=== PATIENT | male | born 1960 ===

== ENCOUNTER 2020-06-21 13:48 | Emergency (ER) | payer OTHER, SELFPAY ==
[2020-06-21 14:35] VITALS: BP 163/79; PULSE 79; RESP 18; TEMP 36.6; O2SAT 97; BMI 33.1
--- NOTE | 2020-06-21 15:29 | ECG_ITS ---
Test Reason : UPPER RESPORITARY Blood Pressure : / mmHG Vent. Rate : 077 BPM Atrial Rate : 077 BPM P-R Int : 130 ms QRS Dur : 082 ms QT Int : 382 ms P-R-T Axes : 060 025 002 degrees QTc Int : 432 ms Normal sinus rhythm with sinus arrhythmia Normal ECG When compared with ECG of 29-FEB-2020 08:22, No significant change was found Referred By: Dyan Osborn Electronically Signed By:DOMINIC KIRK
--- NOTE | 2020-06-21 15:29 | XR_ITS ---
EXAMINATION: XR CHEST CLINICAL INFORMATION: Wheezing. Covid symptoms. COMPARISON: Previous chest x-ray July 2019 TECHNIQUE: Frontal view of the chest was obtained. FINDINGS: The cardiac and mediastinal contours are stable. The lungs are clear without evidence of a pneumonia. There is no pleural effusion or pneumothorax. Bony structures are unremarkable. XR/XR chest 1V IMPRESSION: No evidence for acute disease in the chest.
[2020-06-21 15:55] VITALS: BP 167/71; PULSE 69; RESP 17; TEMP 37.2; O2SAT 99
--- NOTE | 2020-06-21 16:00 | ED.GENADULT ---
HPI - General Adult General Chief complaint: Upper Respiratory Symptoms Stated complaint: covid symptoms Time Seen by Provider: 06/21/20 15:29 Source: patient Mode of arrival: EMS Limitations: no limitations History of Present Illness HPI narrative: 59 y/o male with history of asthma, depression, hx substance abuse (IV heroin), HTN who presents with difficulty breathing this morning. He states when he was walking to the mailbox he could not catch his breath. He attributed this to his history of asthma. He recently ran out of his albuterol inhaler. He also reports headaches, runny nose, body aches. He denies chest pain, N/V, abd pain, urinary symptoms. No known sick contacts. MD complaint: SOB Onset (ago): day(s) (1) Location: chest Radiation: non-radiation Severity: mild and moderate Pain Consistency: intermittent (improving) Relieving factors: rest Exacerbating factors: movement Associated symptoms: headaches, loss of appetite and malaise Treatments prior to arrival: none Related Data Previous Rx's Medication Instructions Recorded acetaminophen [Tylenol Arthritis 650 mg PO Q8H PRN #30 tab 06/21/20 Pain] albuterol sulfate 1 inh INHALATION QID PRN #6.7 g 06/21/20 prednisone 40 mg PO DAILY #5 tab 06/21/20 Allergies Allergy/AdvReac Type Severity Reaction Status Date / Time No Known Allergies Allergy Unverified 03/10/20 17:24 [No Known Allergies*] Review of Systems Review of Systems: Constitutional: No Fever, + Chills ENT/Mouth: No sore throat, + Rhinorrhea, No Swallowing Difficulty Eyes: No Eye Pain, No Swelling, No Redness Cardiovascular: No Chest Pain, + SOB, No Orthopnea, No Edema Respiratory: No Cough, No Sputum, + Wheezing,+ dyspnea Gastrointestinal: No Nausea, No Vomiting, No Diarrhea, No abdominal Pain Genitourinary: No Dysuria, No Urinary Frequency, No Hematuria Musculoskeletal: No joint pain, + Myalgias Skin: No Skin Lesions, No rash Neuro: No Weakness, No Numbness, No Dizziness, + Headache Psych: No Anxiety/Panic, No Depression Heme/Lymph: No Bruising, No Lymphadenopathy Endocrine: No Polyuria, No Polydipsia PMFSH Past Medical History Attestation statement: The following information was validated with the patient. Medical History Asthma Depression HTN (hypertension) Social History Social History Advance Directives: No Advance Directives Information Provided: No Physical Exam Vital Signs: Vital Signs: Last Vital Signs Temp 99.0 F 06/21/20 15:55 Pulse 69 06/21/20 15:55 Resp 17 06/21/20 15:55 BP 167/71 H 06/21/20 15:55 Pulse Ox 99 06/21/20 15:55 Body Mass Index 33.1 Appearance: Alert. Oriented X3. No acute distress. Eyes: Pupils equal, round and reactive to light. ENT: Pharynx normal. Neck: Normal inspection. Neck supple. CVS: Normal heart rate and rhythm. Pulses normal. Respiratory: No respiratory distress. Breath sounds diminished throughout Abdomen: Soft and nontender. +BS x4 Skin: Skin warm and dry. Normal skin color. Normal skin turgor. No rashes. Extremities: No lower extremity edema. Negative Jonathan's sign Neuro: Oriented X 3. No motor deficit. No sensory deficit. Course Course Course Narrative: 59 y/o male with history of asthma presenting with SOB/NASCIMENTO this morning. Symptoms improved but he also reports headache and runny nose. Concern for COVID-19 vs influenza. Resp panel and CXR ordered. He is vitally stable in no distress. No wheezing on exam, less likely asthma exacerbation. No chest pain, nausea or diaphoresis Reevaluation(s) Reevaluation #1: Workup is unremarkable including CXR, EKG, and resp panel. Patient was treated for anxiety with small dose of ativan and feels better. He states he was nervous that if his test came back positive for COVID his roommate was going to make him move out. He remains hemodynamically stable with no resp distress or hypoxia. He is stable for discharge with plan to follow up with PCP this week. Patient agrees with plan. Medical Decision Making Lab Data Result diagrams: 06/21/20 16:10 06/21/20 16:10 Labs: Lab Results 06/21/20 06/21/20 06/21/20 Range/Units 16:10 16:10 16:10 WBC 9.1 (4.8-10.8) X10*3/uL RBC 4.58 L (4.60-5.80) X10*6/uL Hgb 12.2 L (14.0-18.0) g/dl Hct 40.2 L (42-52) % MCV 87.8 (80-98) fL MCH 26.6 L (27.0-33.0) pg MCHC 30.3 L (31.0-36.0) g/dl RDW 13.4 (11.0-16.0) % Plt Count 281 (160-400) X10*3/uL MPV 8.9 L (9.4-12.4) fL Immature Gran % (Auto) 0.2 (0.0-0.4) % Neut % (Auto) 83.3 H (45-73) % Lymph % (Auto) 9.9 L (20-40) % [place] % (Auto) 6.1 (2-11) % Eos % (Auto) 0.2 (0-4) % Baso % (Auto) 0.3 (0-2) % Lymph # (Auto) 0.9 L (1.2-4.9) X10*3/uL [place] # (Auto) 0.6 (0.1-1.2) X10*3/uL Eos # (Auto) 0.0 (0.0-0.4) X10*3/uL Baso # (Auto) 0.0 (0.0-0.2) X10*3/uL Abs Immat Gran (auto) 0.02 (0.00-0.03) X10*3/uL Absolute Neuts (auto) 7.6 (2.0-8.3) X10*3/uL Absolute Nucleated RBC 0.000 (0.0-0.012) X10*3/uL Nucleated RBC % (auto) 0.0 (0.0-0.2) /100WBC Hold Blue Top SEE NOTE Sodium 140 (135-145) mmol/L Potassium 4.5 (3.3-5.1) mmol/l Chloride 105 (96-108) mmol/L Carbon Dioxide 25 (22-29) mmol/L Anion Gap 15 (12-20) BUN 12 (9-16) mg/dL Creatinine 0.78 (0.5-1.4) mg/dL Estim Creat Clear Calc 101.7 Estimated GFR > 60 Random Glucose 106 (60-115) mg/dL Calcium 9.1 (8.4-10.2) mg/dL Magnesium 2.1 (1.6-2.6) mg/dL Coronavirus (PCR) (Negative) Influenza Type A (PCR) (Negative) Influenza Type B (PCR) (Negative) RSV RNA Qual (PCR) (Negative) 06/21/20 Range/Units 16:10 WBC (4.8-10.8) X10*3/uL RBC (4.60-5.80) X10*6/uL Hgb (14.0-18.0) g/dl Hct (42-52) % MCV (80-98) fL MCH (27.0-33.0) pg MCHC (31.0-36.0) g/dl RDW (11.0-16.0) % Plt Count (160-400) X10*3/uL MPV (9.4-12.4) fL Immature Gran % (Auto) (0.0-0.4) % Neut % (Auto) (45-73) % Lymph % (Auto) (20-40) % [place] % (Auto) (2-11) % Eos % (Auto) (0-4) % Baso % (Auto) (0-2) % Lymph # (Auto) (1.2-4.9) X10*3/uL [place] # (Auto) (0.1-1.2) X10*3/uL Eos # (Auto) (0.0-0.4) X10*3/uL Baso # (Auto) (0.0-0.2) X10*3/uL Abs Immat Gran (auto) (0.00-0.03) X10*3/uL Absolute Neuts (auto) (2.0-8.3) X10*3/uL Absolute Nucleated RBC (0.0-0.012) X10*3/uL Nucleated RBC % (auto) (0.0-0.2) /100WBC Hold Blue Top Sodium (135-145) mmol/L Potassium (3.3-5.1) mmol/l Chloride (96-108) mmol/L Carbon Dioxide (22-29) mmol/L Anion Gap (12-20) BUN (9-16) mg/dL Creatinine (0.5-1.4) mg/dL Estim Creat Clear Calc Estimated GFR Random Glucose (60-115) mg/dL Calcium (8.4-10.2) mg/dL Magnesium (1.6-2.6) mg/dL Coronavirus (PCR) NEGATIVE (Negative) Influenza Type A (PCR) NEGATIVE (Negative) Influenza Type B (PCR) NEGATIVE (Negative) RSV RNA Qual (PCR) NEGATIVE (Negative) ECG Data Attestation: I personally reviewed and interpreted this ECG as follows: Interpretation: normal sinus rhythm, HR 77 bpm, normal MI interval, normal QTc, no ischemic changes. Critical Care Time Critical Care Time Critical Care Time: No Discharge Plan Discharge Clinical Impression: Upper respiratory infection Qualifiers: URI type: unspecified viral URI Qualified Code(s): J06.9 - Acute upper respiratory infection, unspecified Patient Disposition: Home, Self-Care Instructions: Viral Syndrome (ED) Additional Instructions: You were tested for COVID-19, Influenza and RSV today - all were NEGATIVE. Your chest x-ray and EKG were unremarkable. It is likely that your symptoms are due to another respiratory virus. Recommend taking Prednisone prescription as prescribed. Use albuterol inhaler as needed for shortness of breath or wheezing. Take over the counter cold/flu medications as needed for your symptoms. Rest, stay hydrated. Follow up with your doctor this week. If you symptoms worsen or if you develop chest pain, difficulty breathing or any other concerning symptom come back to the ER for further evaluation. Prescriptions: New prednisone 20 mg tablet 40 mg PO DAILY Qty: 5 RF: 0 acetaminophen [Tylenol Arthritis Pain] 650 mg tablet extended release 650 mg PO Q8H PRN (Reason: fever or pain) Qty: 30 RF: 0 albuterol sulfate 90 mcg/actuation HFA aerosol inhaler 1 inh inhalation QID PRN (Reason: shortness of breath or wheezing) Qty: 6.7 RF: 0
[2020-06-21 16:15] LABS: MANUAL DIFF FLAG NO
[2020-06-21 16:18] LABS: Basophils Percent Auto 0.3 % (0-2); Eosinophils Percent Auto 0.2 % (0-4); Hematocrit 40.2 % (42-52); Hemoglobin 12.2 g/dl (14.0-18.0); Imm Gran Abs Auto 0.02 X10*3/uL (0.00-0.03); Imm Gran Pct Auto 0.2 % (0.0-0.4); Lymphocytes Absolute Auto 0.9 X10*3/uL (1.2-4.9); Lymphocytes Percent Auto 9.9 % (20-40); Mean Corpuscular HGB Conc 30.3 g/dl (31.0-36.0); Mean Corpuscular Hemoglobin 26.6 pg (27.0-33.0); Mean Corpuscular Volume 87.8 fL (80-98); Mean Platelet Volume 8.9 fL (9.4-12.4); Monocytes Absolute Auto 0.6 X10*3/uL (0.1-1.2); Monocytes Percent Auto 6.1 % (2-11); Neutrophils Absolute Auto 7.6 X10*3/uL (2.0-8.3); Neutrophils Percent Auto 83.3 % (45-73); Platelet Count 281 X10*3/uL (160-400); Red Blood Count 4.58 X10*6/uL (4.60-5.80); Red Cell Distribution Width 13.4 % (11.0-16.0); White Blood Count 9.1 X10*3/uL (4.8-10.8)
[2020-06-21 16:48] LABS: Anion Gap 15 (12-20); Blood Urea Nitrogen 12 mg/dL (9-16); Calcium 9.1 mg/dL (8.4-10.2); Carbon Dioxide 25 mmol/L (22-29); Chloride 105 mmol/L (96-108); Creatinine Clr Calc Pharmacy 101.7; Estimated Glomerular Filt Rate > 60; Glucose Random 106 mg/dL (60-115); Magnesium 2.1 mg/dL (1.6-2.6); Potassium 4.5 mmol/l (3.3-5.1); Sodium 140 mmol/L (135-145)
[2020-06-21 17:05] LABS: Influenza A PCR NEGATIVE (Negative); Influenza B PCR NEGATIVE (Negative); Resp Syncy Virus RNA Qual PCR NEGATIVE (Negative); SARS COV2 PCR INHOUSE NEGATIVE (Negative)
[2020-06-21] MEDS: LORazepam 1 MG TABLET PO (17:10)
[2020-06-21] MEDS: predniSONE 10 MG TABLET 50 MG PO (17:11)
[2020-06-21] MEDS: Albuterol Sulfate 90 MCG 8 GM INHALER 4 PUFF INHALE (17:24)
--- NOTE | 2020-06-21 17:25 | PC.NURSE ---
Pt walking in room.Reports that he is no longer SOB. Given ativan, prednisone, and inhailer. Awaiting covid swab.
== END 2020-06-21 18:26 | disposition home or self-care (01) ==
PROVIDERS: Physician Assistant; Emergency Provider Emergency Medicine Emergency Medical Services
DX: J06.9 Acute upper respiratory infection, unspecified (principal); R51.9 Headache, unspecified; R63.0 Anorexia; Z20.828 Contact with and (suspected) exposure to other viral communicable diseases; Z79.899 Other long term (current) drug therapy
CPT/HCPCS: 0241U; 36415; 71045; 80048; 83735; 85025; 93005; 99283

== ENCOUNTER 2020-10-28 07:07 | Emergency (ER) | payer OTHER, SELFPAY ==
--- NOTE | ~2020-10-28 | XR_ITS ---
EXAMINATION: XR CHEST CLINICAL INFORMATION: Chest pain. COMPARISON: Chest 06/21/2020 TECHNIQUE: Frontal view of the chest was obtained. FINDINGS: The lungs are well-expanded and clear. The heart size and pulmonary vascularity is normal. No gross bony abnormality seen. XR/XR chest 1V IMPRESSION: Unremarkable chest exam. No change from 06/21/2020
--- NOTE | 2020-10-28 07:17 | ED_ITS ---
HPI - Chest Pain General Chief Complaint: Chest Pain Stated Complaint: CHEST PAIN Time Seen by Provider: 10/28/20 07:17 Source: patient Mode of arrival: ambulatory Limitations: no limitations History of Present Illness HPI narrative: 60 yo male with asthma, HTN, anxiety on methadone but recently increasing dose did snort heroin yesterday (does not inject no track hook seen) denies cocaine use developed L sided chest pain yesterday at 3pm no associated sob/n/v. states pain is still there, states this has never happened before MD complaint: chest pain Onset (ago): day(s) (yesterday 3pm) Timing of current episode: episodic Prior episodes: No Onset: during rest Pain location: left chest Pain radiation: none Severity: moderate Quality: tightness and heaviness Relieving factors: nothing Exacerbating factors: nothing Context: other (drug abuse) Treatment prior to arrival: none Related Data Previous Rx's Medication Instructions Recorded acetaminophen [Tylenol Arthritis 650 mg PO Q8H PRN #30 tab 06/21/20 Pain] albuterol sulfate 1 inh INHALATION QID PRN #6.7 g 06/21/20 prednisone 40 mg PO DAILY #5 tab 06/21/20 Allergies Allergy/AdvReac Type Severity Reaction Status Date / Time No Known Allergies Allergy Unverified 03/10/20 17:24 [No Known Allergies*] Review of Systems Review of Systems: Constitutional : No Weight loss, No Fever, No Chills ENT/Mouth : No sore throat, No Rhinorrhea Eyes: No Eye Pain, No Swelling Cardiovascular : pos Chest Pain, no SOB, no Dyspnea on Exertion, No Orthopnea, No Edema, No Palpitations Respiratory : No Cough, No Sputum Gastrointestinal : no Nausea, No Vomiting, No Diarrhea, No abdominal Pain, No Hematochezia, No Melena Genitourinary : No Dysuria, No Urinary Frequency Musculoskeletal : No joint pain, No Myalgias, No Joint Swelling Skin : No Skin Lesions, No rash Neuro : No Weakness, No Numbness, No Dizziness, No Headache Psych : No Anxiety/Panic, No Depression Heme/Lymph: No Bruising, No Lymphadenopathy Endocrine : No Polyuria, No Polydipsia All other systems reviewed and are negative [facility] Past Medical History Attestation statement: The following information was validated with the patient. Medical History Asthma Depression HTN (hypertension) Social History Social History (Updated 10/28/20 @ 07:24 by Maria Guadalupe Sosa DO) Alcohol intake: never Smoking Status: Never smoker Smoked in Last 30 Days: No Use of substances other than those prescribed or required for medical reasons: Yes Substance Use Type: Heroin Substance Use Type Other:: on methadone Substance Use Frequency: Chronic Longstanding Last Used Substance: Days (ago) Any prior treatment program specific to substance use: Yes (methadone) Advance Directives: No Advance Directives Information Provided: No Physical Exam Vital Signs: Vital Signs: Last Vital Signs Temp 98.1 F 10/28/20 07:19 Pulse 95 10/28/20 07:19 Resp 18 10/28/20 07:19 BP 160/89 H 10/28/20 07:19 Pulse Ox 98 10/28/20 07:19 Body Mass Index 33.3 Appearance: Alert. Oriented X3. No acute distress. Anxious Eyes: Pupils equal, round and reactive to light. ENT: Pharynx normal. Neck: Normal inspection. Neck supple. CVS: Normal heart rate and rhythm. Pulses normal. Respiratory: No respiratory distress. Breath sounds normal. Abdomen: Soft and nontender. Skin: Skin warm and dry. Normal skin color. Normal skin turgor. Extremities: No lower extremity edema. No calf ttp Neuro: Oriented X 3. No motor deficit. No sensory deficit. Course Course Course Narrative: patient feels better, nonischemic EKG, trop negative at 6 hr jaime, stable for DC MDM - Chest Pain MDM Narrative Medical decision making narrative: 60 yo male with asthma, HTN, anxiety on methadone but recently increasing dose did snort heroin yesterday (does not inject no track hook seen) denies cocaine use developed L sided chest pain yesterday at 3pm no associated sob/n/v. states pain is still there, states this has never happened before at this time will obtain labs, troponin x 1 given pain > 6 hours, EKG, COVID swab, no signs of DVT not pleuritic and no tachycardia / hypoxia to suggest PE, doubt dissection distal pulses intact, labs aspirin and ativan ordered, possibly accidental cocaine use caused symptoms - drug screen ordered. Differential Diagnosis Differential diagnosis: Likely atypical chest pain and chest pain; Unlikely st elevation myocardial infarction Lab Data Result diagrams: 10/28/20 07:48 10/28/20 07:48 Labs: Lab Results 10/28/20 10/28/20 10/28/20 Range/Units 07:48 07:48 07:48 WBC 7.7 (4.8-10.8) X10*3/uL RBC 4.93 (4.60-5.80) X10*6/uL Hgb 13.3 L (14.0-18.0) g/dl Hct 42.4 (42-52) % MCV 86.0 (80-98) fL MCH 27.0 (27.0-33.0) pg MCHC 31.4 (31.0-36.0) g/dl RDW 13.3 (11.0-16.0) % Plt Count 259 (160-400) X10*3/uL MPV 8.7 L (9.4-12.4) fL Immature Gran % (Auto) 0.4 (0.0-0.4) % Neut % (Auto) 53.2 (45-73) % Lymph % (Auto) 31.0 (20-40) % [place] % (Auto) 11.5 H (2-11) % Eos % (Auto) 3.8 (0-4) % Baso % (Auto) 0.1 (0-2) % Lymph # (Auto) 2.4 (1.2-4.9) X10*3/uL [place] # (Auto) 0.9 (0.1-1.2) X10*3/uL Eos # (Auto) 0.3 (0.0-0.4) X10*3/uL Baso # (Auto) 0.0 (0.0-0.2) X10*3/uL Abs Immat Gran (auto) 0.03 (0.00-0.03) X10*3/uL Absolute Neuts (auto) 4.1 (2.0-8.3) X10*3/uL Absolute Nucleated RBC 0.000 (0.0-0.012) X10*3/uL Nucleated RBC % (auto) 0.0 (0.0-0.2) /100WBC Hold Blue Top SEE NOTE Sodium 140 (135-145) mmol/L Potassium 4.6 (3.3-5.1) mmol/L Chloride 103 (96-108) mmol/L Carbon Dioxide 27 (22-29) mmol/L Anion Gap 15 (12-20) BUN 16 (9-16) mg/dL Creatinine 0.92 (0.5-1.4) mg/dL Estim Creat Clear Calc 88.3 Estimated GFR > 60 Random Glucose 121 H (60-115) mg/dL Calcium 9.3 (8.4-10.2) mg/dL Magnesium 2.2 (1.6-2.6) mg/dL Total Bilirubin 0.5 (0.0-1.0) mg/dL Direct Bilirubin < 0.2 (0.0-0.5) mg/dL AST 17 (5-37) U/L ALT 13 (0-40) U/L Alkaline Phosphatase 66 (39-117) U/L Troponin I High Sens (<3.5-35.0) ng/L Total Protein 7.6 (6.5-8.0) g/dL Albumin 4.1 (3.5-5.0) g/dL Urine Opiates Screen (Not Detect) Ur Barbiturates Screen (Not Detect) Ur Phencyclidine Scrn (Not Detect) Ur Amphetamines Screen (Not Detect) U Benzodiazepines Scrn (Not Detect) Urine Cocaine Screen (Not Detect) U Marijuana (THC) Screen (Not Detect) 10/28/20 10/28/20 Range/Units 07:48 07:48 WBC (4.8-10.8) X10*3/uL RBC (4.60-5.80) X10*6/uL Hgb (14.0-18.0) g/dl Hct (42-52) % MCV (80-98) fL MCH (27.0-33.0) pg MCHC (31.0-36.0) g/dl RDW (11.0-16.0) % Plt Count (160-400) X10*3/uL MPV (9.4-12.4) fL Immature Gran % (Auto) (0.0-0.4) % Neut % (Auto) (45-73) % Lymph % (Auto) (20-40) % [place] % (Auto) (2-11) % Eos % (Auto) (0-4) % Baso % (Auto) (0-2) % Lymph # (Auto) (1.2-4.9) X10*3/uL [place] # (Auto) (0.1-1.2) X10*3/uL Eos # (Auto) (0.0-0.4) X10*3/uL Baso # (Auto) (0.0-0.2) X10*3/uL Abs Immat Gran (auto) (0.00-0.03) X10*3/uL Absolute Neuts (auto) (2.0-8.3) X10*3/uL Absolute Nucleated RBC (0.0-0.012) X10*3/uL Nucleated RBC % (auto) (0.0-0.2) /100WBC Hold Blue Top Sodium (135-145) mmol/L Potassium (3.3-5.1) mmol/L Chloride (96-108) mmol/L Carbon Dioxide (22-29) mmol/L Anion Gap (12-20) BUN (9-16) mg/dL Creatinine (0.5-1.4) mg/dL Estim Creat Clear Calc Estimated GFR Random Glucose (60-115) mg/dL Calcium (8.4-10.2) mg/dL Magnesium (1.6-2.6) mg/dL Total Bilirubin (0.0-1.0) mg/dL Direct Bilirubin (0.0-0.5) mg/dL AST (5-37) U/L ALT (0-40) U/L Alkaline Phosphatase (39-117) U/L Troponin I High Sens < 3.5 (<3.5-35.0) ng/L Total Protein (6.5-8.0) g/dL Albumin (3.5-5.0) g/dL Urine Opiates Screen POSITIVE H (Not Detect) Ur Barbiturates Screen Not Detected (Not Detect) Ur Phencyclidine Scrn Not Detected (Not Detect) Ur Amphetamines Screen Not Detected (Not Detect) U Benzodiazepines Scrn Not Detected (Not Detect) Urine Cocaine Screen Not Detected (Not Detect) U Marijuana (THC) Screen Not Detected (Not Detect) ECG Data ECG #1: Attestation: I personally reviewed and interpreted this ECG as follows: ECG interpretation date: 10/28/20 ECG interpretation time: 07:17 Interpretation: Rate: 82 Rhythm: NSR [place]: normal Normal P waves. Normal XOCHITL. Normal QRS complex. ST T wave : normal no ALBERTINA qTC: normal prior studies: no acute ischemia The study has been interpreted contemporaneously by me. . Scores Heart Score History: -0- slightly suspicious ECG: -0- normal Age: -1- >45 - <65 Risk factory: -1- 1 or 2 risk factors Troponin: -0- < or = normal limit Score: 2 Risk: 1.7% Discharge Plan Discharge Clinical Impression: Atypical chest pain Patient Disposition: Home, Self-Care Instructions: Chest Pain (ED) Additional Instructions: return to ED for any worsening symptoms or concerns Prescriptions: No Action prednisone 20 mg tablet 40 mg PO DAILY Qty: 5 RF: 0 acetaminophen [Tylenol Arthritis Pain] 650 mg tablet extended release 650 mg PO Q8H PRN (Reason: fever or pain) Qty: 30 RF: 0 albuterol sulfate 90 mcg/actuation HFA aerosol inhaler 1 inh inhalation QID PRN (Reason: shortness of breath or wheezing) Qty: 6.7 RF: 0 Referrals: Rg Canseco MD [Primary Care Provider] - 2 days (if not better)
[2020-10-28 07:19] VITALS: BP 160/89; PULSE 95; RESP 18; TEMP 36.7; O2SAT 98; BMI 33.3
--- NOTE | 2020-10-28 07:55 | ECG_ITS ---
Test Reason : CP Blood Pressure : / mmHG Vent. Rate : 082 BPM Atrial Rate : 082 BPM P-R Int : 132 ms QRS Dur : 082 ms QT Int : 382 ms P-R-T Axes : 059 023 005 degrees QTc Int : 446 ms Normal sinus rhythm Normal ECG When compared to the previous EKG of No significant changes seen Referred By: Maria Guadalupe Sosa Electronically Signed By:Arturo Dunne
[2020-10-28 07:56] LABS: MANUAL DIFF FLAG NO
[2020-10-28] MEDS: Aspirin 81 MG TAB.CHEW 162 MG PO (07:58)
[2020-10-28 07:59] LABS: Basophils Percent Auto 0.1 % (0-2); Eosinophils Absolute Auto 0.3 X10*3/uL (0.0-0.4); Eosinophils Percent Auto 3.8 % (0-4); Hematocrit 42.4 % (42-52); Hemoglobin 13.3 g/dl (14.0-18.0); Imm Gran Abs Auto 0.03 X10*3/uL (0.00-0.03); Imm Gran Pct Auto 0.4 % (0.0-0.4); Lymphocytes Absolute Auto 2.4 X10*3/uL (1.2-4.9); Mean Corpuscular HGB Conc 31.4 g/dl (31.0-36.0); Mean Platelet Volume 8.7 fL (9.4-12.4); Monocytes Absolute Auto 0.9 X10*3/uL (0.1-1.2); Monocytes Percent Auto 11.5 % (2-11); Neutrophils Absolute Auto 4.1 X10*3/uL (2.0-8.3); Neutrophils Percent Auto 53.2 % (45-73); Platelet Count 259 X10*3/uL (160-400); Red Blood Count 4.93 X10*6/uL (4.60-5.80); Red Cell Distribution Width 13.3 % (11.0-16.0); White Blood Count 7.7 X10*3/uL (4.8-10.8)
[2020-10-28] MEDS: LORazepam 2 MG/ML VIAL 1 MG IVPUSH (07:59)
[2020-10-28 08:30] LABS: Amphetamine Screen Urine Not Detected (Not Detect); Barbiturates, Urine Not Detected (Not Detect); Benzodiazepines Screen Urine Not Detected (Not Detect); Cannabinoid Screen Urine Not Detected (Not Detect); Cocaine Screen Urine Not Detected (Not Detect); Opiate Screen Urine POSITIVE (Not Detect); Phencyclidine Screen Urine Not Detected (Not Detect)
[2020-10-28 08:32] LABS: Alanine Aminotransferase 13 U/L (0-40); Albumin Level 4.1 g/dL (3.5-5.0); Alkaline Phosphatase 66 U/L (39-117); Anion Gap 15 (12-20); Aspartate Amino Transferase 17 U/L (5-37); Bilirubin Direct < 0.2 mg/dL (0.0-0.5); Bilirubin Total 0.5 mg/dL (0.0-1.0); Blood Urea Nitrogen 16 mg/dL (9-16); Calcium 9.3 mg/dL (8.4-10.2); Carbon Dioxide 27 mmol/L (22-29); Chloride 103 mmol/L (96-108); Creatinine Clr Calc Pharmacy 88.3; Estimated Glomerular Filt Rate > 60; Glucose Random 121 mg/dL (60-115); Magnesium 2.2 mg/dL (1.6-2.6); Potassium 4.6 mmol/L (3.3-5.1); Sodium 140 mmol/L (135-145); Total Protein 7.6 g/dL (6.5-8.0); Troponin-I High Sensitivity < 3.5 ng/L (<3.5-35.0)
[2020-10-28 08:59] LABS: COVID-19 Test Negative (Negative)
== END 2020-10-28 09:20 | disposition home or self-care (01) ==
PROVIDERS: Emergency Provider Emergency Medicine; PCP Internal Medicine
DX: R07.89 Other chest pain (principal); F11.90 Opioid use, unspecified, uncomplicated; I10 Essential (primary) hypertension; Z20.822 Contact with and (suspected) exposure to COVID-19; Z79.899 Other long term (current) drug therapy
CPT/HCPCS: 36415; 71045; 80048; 80076; 80307; 83735; 84484; 85025; 87635; 93005; 96374; 99284; J2060

== ENCOUNTER 2021-02-14 13:52 | Emergency (ER) | payer OTHER, SELFPAY ==
[2021-02-14 14:15] VITALS: BP 149/77; PULSE 92; RESP 18; TEMP 37.1; O2SAT 96
[2021-02-14 14:17] VITALS: BP 145/73; BP 149/77; PULSE 103; PULSE 92; RESP 18; TEMP 37.1; O2SAT 96; BMI 34.3
--- NOTE | 2021-02-14 14:22 | ECG_ITS ---
Test Reason : ETOH Blood Pressure : / mmHG Vent. Rate : 088 BPM Atrial Rate : 088 BPM P-R Int : 118 ms QRS Dur : 088 ms QT Int : 366 ms P-R-T Axes : 000 -17 -27 degrees QTc Int : 442 ms Normal sinus rhythm Low voltage QRS Borderline ECG When compared with ECG of 28-OCT-2020 07:13, No significant change was found Referred By: Mike Melgar Electronically Signed By:CARLOS FARIAS
--- NOTE | 2021-02-14 14:23 | ED.WEAKNESS ---
HPI - Weakness General Chief complaint: ETOH/Substance Use Stated complaint: HEROIN? Time Seen by Provider: 02/14/21 14:21 Source: patient Limitations: no limitations History of Present Illness HPI Narrative: Patient is 60 years old male states that he was driving felt weak. Patient has history of opioid abuse disorder he is in a program, he states that they just use the heroin prior to the arrival Complaint: generalized weakness Onset (ago): hour(s) (1) Duration: improved Location: generalized Migration: none Severity: moderate Relieving factors: none Exacerbating factors: none Related Data Previous Rx's Medication Instructions Recorded acetaminophen 650 mg 650 mg PO Q8H PRN #30 tab 06/21/20 tablet,extended release (Tylenol Arthritis Pain) albuterol sulfate 90 mcg/actuation 1 inh INHALATION QID PRN #6.7 g 06/21/20 aerosol inhaler prednisone 20 mg tablet 40 mg PO DAILY #5 tab 06/21/20 Allergies Allergy/AdvReac Type Severity Reaction Status Date / Time No Known Allergies Allergy Unverified 03/10/20 17:24 [No Known Allergies*] Review of Systems Review of Systems: Yes all other systems are reviewed and are negative Constitutional: Constitutional: Reports no additional constitutional complaints ENT: Reports system reviewed and no additional complaints, except as documented Cardiovascular: Cardiovascular: Reports no additional cardiovascular complaints Respiratory: Respiratory: Reports no additional respiratory complaints [facility] Past Medical History Medical History Asthma Depression HTN (hypertension) Social History Social History Alcohol intake: never Patient Tobacco Use Status: Never used Tobacco Use of substances other than those prescribed or required for medical reasons: No Substance Use Type: Heroin Advance Directives: No Advance Directives Information Provided: No Physical Exam Vital Signs: Vital Signs: Last Vital Signs Temp 98.7 F 02/14/21 14:17 Pulse 92 02/14/21 14:17 Resp 18 02/14/21 14:17 BP 149/77 H 02/14/21 14:17 Pulse Ox 96 02/14/21 14:17 Body Mass Index 34.3 Const: General: cooperative HENMT: Head: Yes normal to inspection and Yes No palpable skull fracture present Mouth: Normal oral and palatal mucosa present Throat: Yes posterior oropharynx normal Neck: Neck: Yes normal visual inspection and Yes full ROM Thyroid: Thyroid normal Chest: Chest palpation & inspection: normal inspection of the chest and normal palpation of entire chest wall Resp: Effort & Inspection: normal respiratory effort and able to speak in complete sentences Auscultation: clear to auscultation bilaterally Cardio: Jugular venous distension: no JVD Rate: regular rate Rhythm: regular rhythm GI: Inspection: Yes normal to inspection Palpation (GI): Soft to palpation, not firm, nontender, no guarding and not rigid Auscultation: normal bowel sounds Skin: General skin exam: no rashes or lesions noted and elasticity normal Lesions: no lesions Rashes: no rashes Wounds: no wounds Course Reevaluation(s) Reevaluation #1: asymptomatic,labs wnl ok to d/c MDM - Weakness Lab Data Result diagrams: 02/14/21 14:29 02/14/21 14:29 Labs: Lab Results 02/14/21 02/14/21 02/14/21 Range/Units 14:29 14:29 14:29 WBC 9.3 (4.8-10.8) X10*3/uL RBC 4.75 (4.60-5.80) X10*6/uL Hgb 12.6 L (14.0-18.0) g/dl Hct 40.5 L (42-52) % MCV 85.3 (80-98) fL MCH 26.5 L (27.0-33.0) pg MCHC 31.1 (31.0-36.0) g/dl RDW 13.2 (11.0-16.0) % Plt Count 261 (160-400) X10*3/uL MPV 8.4 L (9.4-12.4) fL Immature Gran % (Auto) 0.8 H (0.0-0.4) % Neut % (Auto) 68.9 (45-73) % Lymph % (Auto) 18.0 L (20-40) % Mercer % (Auto) 9.0 (2-11) % Eos % (Auto) 3.1 (0-4) % Baso % (Auto) 0.2 (0-2) % Lymph # (Auto) 1.7 (1.2-4.9) X10*3/uL Mercer # (Auto) 0.8 (0.1-1.2) X10*3/uL Eos # (Auto) 0.3 (0.0-0.4) X10*3/uL Baso # (Auto) 0.0 (0.0-0.2) X10*3/uL Abs Immat Gran (auto) 0.07 H (0.00-0.03) X10*3/uL Absolute Neuts (auto) 6.4 (2.0-8.3) X10*3/uL Absolute Nucleated RBC 0.000 (0.0-0.012) X10*3/uL Nucleated RBC % (auto) 0.0 (0.0-0.2) /100WBC Sodium 142 (135-145) mmol/L Potassium 4.3 (3.3-5.1) mmol/L Chloride 104 (96-108) mmol/L Carbon Dioxide 30 H (22-29) mmol/L Anion Gap 12 (12-20) BUN 14 (9-16) mg/dL Creatinine 0.87 (0.5-1.4) mg/dL Estim Creat Clear Calc 91.7 Estimated GFR > 60 Random Glucose 120 H (60-115) mg/dL Calcium 9.5 (8.4-10.2) mg/dL Total Bilirubin 0.4 (0.0-1.0) mg/dL AST 21 (5-37) U/L ALT 21 (0-40) U/L Alkaline Phosphatase 72 (39-117) U/L Troponin I High Sens < 3.5 (<3.5-35.0) ng/L Total Protein 7.6 (6.5-8.0) g/dL Albumin 4.2 (3.5-5.0) g/dL Ethyl Alcohol mg/dL 02/14/21 Range/Units 14:35 WBC (4.8-10.8) X10*3/uL RBC (4.60-5.80) X10*6/uL Hgb (14.0-18.0) g/dl Hct (42-52) % MCV (80-98) fL MCH (27.0-33.0) pg MCHC (31.0-36.0) g/dl RDW (11.0-16.0) % Plt Count (160-400) X10*3/uL MPV (9.4-12.4) fL Immature Gran % (Auto) (0.0-0.4) % Neut % (Auto) (45-73) % Lymph % (Auto) (20-40) % Mercer % (Auto) (2-11) % Eos % (Auto) (0-4) % Baso % (Auto) (0-2) % Lymph # (Auto) (1.2-4.9) X10*3/uL Mercer # (Auto) (0.1-1.2) X10*3/uL Eos # (Auto) (0.0-0.4) X10*3/uL Baso # (Auto) (0.0-0.2) X10*3/uL Abs Immat Gran (auto) (0.00-0.03) X10*3/uL Absolute Neuts (auto) (2.0-8.3) X10*3/uL Absolute Nucleated RBC (0.0-0.012) X10*3/uL Nucleated RBC % (auto) (0.0-0.2) /100WBC Sodium (135-145) mmol/L Potassium (3.3-5.1) mmol/L Chloride (96-108) mmol/L Carbon Dioxide (22-29) mmol/L Anion Gap (12-20) BUN (9-16) mg/dL Creatinine (0.5-1.4) mg/dL Estim Creat Clear Calc Estimated GFR Random Glucose (60-115) mg/dL Calcium (8.4-10.2) mg/dL Total Bilirubin (0.0-1.0) mg/dL AST (5-37) U/L ALT (0-40) U/L Alkaline Phosphatase (39-117) U/L Troponin I High Sens (<3.5-35.0) ng/L Total Protein (6.5-8.0) g/dL Albumin (3.5-5.0) g/dL Ethyl Alcohol < 10 mg/dL ECG Data Attestation: I personally reviewed and interpreted this ECG as follows: Pacemaker model: Normal sinus rhythm rate 88 no ischemic changes Discharge Plan Discharge Clinical Impression: Weakness, Opioid abuse Patient Disposition: Home, Self-Care Instructions: Weakness (ED) Additional Instructions: follow up with PCP,return if worse,fever ,any concern Prescriptions: No Action prednisone 20 mg tablet 40 mg PO DAILY Qty: 5 RF: 0 acetaminophen [Tylenol Arthritis Pain] 650 mg tablet extended release 650 mg PO Q8H PRN (Reason: fever or pain) Qty: 30 RF: 0 albuterol sulfate 90 mcg/actuation HFA aerosol inhaler 1 inh inhalation QID PRN (Reason: shortness of breath or wheezing) Qty: 6.7 RF: 0 Referrals: Keerthi Branch [Emergency Nurse] - 2 days Interventions: ED Discharge Assessment Last Done: 02/14/21 15:39 Discharge Date/Time: 02/14/21 15:40
[2021-02-14 14:37] LABS: Basophils Percent Auto 0.2 % (0-2); Eosinophils Absolute Auto 0.3 X10*3/uL (0.0-0.4); Eosinophils Percent Auto 3.1 % (0-4); Hematocrit 40.5 % (42-52); Hemoglobin 12.6 g/dl (14.0-18.0); Imm Gran Abs Auto 0.07 X10*3/uL (0.00-0.03); Imm Gran Pct Auto 0.8 % (0.0-0.4); Lymphocytes Absolute Auto 1.7 X10*3/uL (1.2-4.9); MANUAL DIFF FLAG NO; Mean Corpuscular HGB Conc 31.1 g/dl (31.0-36.0); Mean Corpuscular Hemoglobin 26.5 pg (27.0-33.0); Mean Corpuscular Volume 85.3 fL (80-98); Mean Platelet Volume 8.4 fL (9.4-12.4); Monocytes Absolute Auto 0.8 X10*3/uL (0.1-1.2); Neutrophils Absolute Auto 6.4 X10*3/uL (2.0-8.3); Neutrophils Percent Auto 68.9 % (45-73); Platelet Count 261 X10*3/uL (160-400); Red Blood Count 4.75 X10*6/uL (4.60-5.80); Red Cell Distribution Width 13.2 % (11.0-16.0); White Blood Count 9.3 X10*3/uL (4.8-10.8)
[2021-02-14 14:59] LABS: Alanine Aminotransferase 21 U/L (0-40); Albumin Level 4.2 g/dL (3.5-5.0); Alkaline Phosphatase 72 U/L (39-117); Anion Gap 12 (12-20); Aspartate Amino Transferase 21 U/L (5-37); Bilirubin Total 0.4 mg/dL (0.0-1.0); Blood Urea Nitrogen 14 mg/dL (9-16); Calcium 9.5 mg/dL (8.4-10.2); Carbon Dioxide 30 mmol/L (22-29); Chloride 104 mmol/L (96-108); Creatinine Clr Calc Pharmacy 91.7; Estimated Glomerular Filt Rate > 60; Glucose Random 120 mg/dL (60-115); Potassium 4.3 mmol/L (3.3-5.1); Sodium 142 mmol/L (135-145); Total Protein 7.6 g/dL (6.5-8.0)
[2021-02-14 15:05] LABS: Troponin-I High Sensitivity < 3.5 ng/L (<3.5-35.0)
[2021-02-14 15:07] LABS: Ethanol < 10 mg/dL
== END 2021-02-14 15:40 | disposition home or self-care (01) ==
LOC: HO.ED 15:24
PROVIDERS: Emergency Provider Emergency Medicine
DX: R53.1 Weakness (principal); F11.10 Opioid abuse, uncomplicated; I10 Essential (primary) hypertension; Z79.899 Other long term (current) drug therapy
CPT/HCPCS: 36415; 80053; 82077; 84484; 85025; 93005; 99283; 99284

== ENCOUNTER 2021-08-29 12:37 | Outpatient (REF) | payer OTHER, SELFPAY ==
--- NOTE | ~2021-08-29 | US_ITS ---
EXAMINATION: US LOWER EXTREMITY VENOUS (REFLUX EXAM), BILATERAL CLINICAL INDICATION: This is a 60-year-old male with venous insufficiency and leg swelling. Varicose veins. COMPARISON: None. TECHNIQUE: Color flow triplex imaging and compression Doppler was performed to evaluate both the deep and the superficial systems bilaterally. To evaluate the superficial system, the examination was performed in the upright position. Color-flow Doppler ultrasound and compression ultrasound were utilized. In addition, maneuvers were utilized to demonstrate reflux. FINDINGS: 1. DEEP VENOUS ULTRASOUND OF THE RIGHT LOWER EXTREMITY: Common Femoral Vein: Compressible, normal respiratory variation and augmented flow. Femoral vein: Compressible, normal color flow and augmentation. Popliteal Vein: Compressible, normal augmentation. Deep Reflux: There is no evidence of reflux in the deep system in either the common femoral vein or the popliteal vein. There is no evidence of a Corado's cyst. 2. SUPERFICIAL ULTRASOUND WITH DOPPLER OF RIGHT LOWER EXTREMITY: GREAT SAPHENOUS VEIN: Saphenofemoral Junction: 0.6 cm Mid Thigh: 0.3 cm Above Knee: 0.3 cm Below Knee: 0.2 cm. The reflux time is 3244 ms. There is no reflux above or below this level. Mid Calf: 0.2 cm Ankle: 0.2 cm GSV REFLUX: There is no reflux at the saphenofemoral junction. There is isolated reflux as noted. DUPLICATED GREAT SAPHENOUS VEIN: There is a 0.3 cm lateral great saphenous vein without reflux. SMALL SAPHENOUS VEIN: Proximal: 0.2 cm Distal: 0.2 cm SSV REFLUX: No evidence of reflux. VEIN OF GIACOMINI: None Imaged. PERFORATORS: There is a 0.2 cm proximal calf director reactor projects with 884 ms of reflux. VARICOSITIES: There are 0.4 cm varicose veins in the saphenofemoral junction region and proximal thigh without reflux. 3. DEEP VENOUS ULTRASOUND OF THE LEFT LOWER EXTREMITY: Common Femoral Vein: Compressible, normal respiratory variation and augmented flow. Femoral Vein: Compressible, normal color flow and augmentation. Popliteal Vein: Compressible, normal augmentation. Deep Reflux: There is no evidence of reflux in the deep system in either the common femoral vein or the popliteal vein. There is no evidence of a Corado's cyst. 4. SUPERFICIAL ULTRASOUND WITH DOPPLER OF LEFT LOWER EXTREMITY: GREAT SAPHENOUS VEIN: Saphenofemoral Junction: 0.8 cm. There is no reflux. Mid Thigh: 0.3 cm. The reflux time is 2892 ms. Above Knee: 0.4 cm. There is no reflux. Below Knee: 0.3 cm. There is no reflux at this level and below. Mid Calf: 0.2 cm Ankle: 0.2 cm GSV REFLUX: There is only isolated reflux. There is no reflux at the saphenofemoral junction. DUPLICATED GREAT SAPHENOUS VEIN: There is a 0.3 cm duplicated lateral great saphenous vein without reflux. SMALL SAPHENOUS VEIN: Proximal: 0.3 cm Distal: 0.3 cm SSV REFLUX: No evidence of reflux. VEIN OF GIACOMINI: None Imaged. PERFORATORS: There are 0.2 cm perforators without evidence of reflux in the thigh and calf VARICOSITIES: . There are 0.4 cm proximal thigh varicose veins without reflux. US/US venous duplex LE BI IMPRESSION: 1. There are bilateral patent great saphenous veins and small saphenous veins without evidence of reflux at the junction. 2. There are bilateral varicose veins without reflux.
== END 2021-08-29 12:38 | disposition home or self-care (01) ==
LOC: HO.US 12:37
PROVIDERS: PCP Internal Medicine; Visit Provider Internal Medicine
DX: R60.0 Localized edema (principal); M79.89 Other specified soft tissue disorders
CPT/HCPCS: 93970

== ENCOUNTER → 2021-11-14 12:27 | Outpatient (REF) | payer OTHER, SELFPAY ==
--- NOTE | 2021-11-14 12:33 | CA_ITS ---
Transthoracic Echocardiogram Patient (Last, First, Middle): Shun Jeronimo, Gender: Male Date of : 1960 Age: 61 Procedure Date: 11/14/2021 Procedure Type: Transthoracic Echocardiogram Location: OP Height: 160.02 cm Weight: 100.7 kg BSA: 2.02 m2 Heart Rate: bpm BP: 164 / 80 mmHg Entry Level Manufacturing Engineer: SB Referring MD: Rg Canseco MD Symptoms: R06.00 [id number] Study Quality: Fair ECG Rhythm: Sinus Conclusions: - The left ventricular systolic function is normal. The visually estimated ejection fraction is between 65-70%. - No obvious valvular pathology seen on this study. Findings Procedure Information Contrast agent, definity, is being given per protocol without apparent complications. Left Ventricle Normal left ventricular cavity size. There is mildly increased left ventricular wall thickness. The left ventricular systolic function is normal. The visually estimated ejection fraction is between 65-70%. There is no evidence of regional wall motion abnormalities. Diastolic function is normal for age. Right Ventricle Normal right ventricular cavity size and systolic function. Atria Both atria are normal in size. Aortic Valve The aortic valve structure and function is likely normal. There is mild calcification of the aortic valve. There is no aortic valve stenosis. There is no aortic valve regurgitation. Mitral Valve The mitral valve appears normal. There is no mitral valve regurgitation. There is no mitral valve stenosis. Pulmonic Valve The pulmonic valve is likely normal. Tricuspid Valve There is no tricuspid valve regurgitation. Tricuspid regurgitation envelope is inadequate for calculation of right ventricular systolic pressure. Great Vessels The asc aorta is normal in size. Venous The inferior vena cava was not well visualized. Pericardium/Pleural There is no evidence of pericardial effusion. Prior Study Comparison No significant change compared to prior study dated: 01/09/2012. Recommendations, Care & Conclusions No obvious valvular pathology seen on this study. Measurements 2D Linear Measurements IVSd: 1.07 0.6-0.9/0.6-1.0 cm LVIDd: 4.79 3.9-5.3/4.2-5.9 cm LVIDd Index: 2.37 2.4-3.2/2.2-3.1 cm/m2 LVIDs: 2.93 2.0-3.6 cm LVPWd: 1.07 0.7-1.1 cm Ao Root: 2.80 2.1-3.5 cm LA Diam: 3.80 2.7-3.8/3.0-4.0 cm LAIDs Index: 1.88 1.5-2.3 cm/m2 LV Mass: 231.83 67-162/88-224 g LV Mass Index: 114.77 43-95/49-115 g/m2 LVOT Diam: 2.00 3.0+(-)1.3 cm 2D Systolic Function EF 4C: 68.30 >55% EF 2C: 75.20 >55% EF BiP: 73.60 >55% Mitral Valve MV Pk E: 0.86 MV PK A: 0.74 MV Decel Time: 161.00 E/A: 1.20 E'Lateral: 10.60 E'Medial: 8.92 E/E' Med: 9.70 E/E' Lat: 8.10 PHT: 47.00 MVA PHT: 4.68 Decel Providence: 5.37 Aortic Valve AoV Pk Abhi: 1.65 AoV Mn Abhi: 1.22 AoV VTI: 0.31 AoV Pk Grad: 11.00 Aov Mn Grad: 7.00 SURENDRA Cont.VTI: 2.22 LVOT LVOT Pk Abhi: 1.01 LVOT Mn Abhi: 0.73 LVOT VTI: 0.22 LVOT Pk Grad: 4.00 LVOT Mn Grad: 2.00 LVOT Diam: 2.00 LVOT Area: 3.14 Diastolic Function MV Pk E: 0.86 MV Pk A: 0.74 E/A: 1.20 E'Medial: 8.92 E/E' Med: 9.70 E' Laterial: 10.60 E/E' Lat: 8.10 Right Ventricle TAPSE (mm): 28.70 TVS' Abhi: 14.90 Tricuspid Valve RA Press: 3.00 Great Vessels Aorta Ao Root-2D: 2.80 2.0-3.7 cm Sinus of Valsalva: 2.80 2.0-3.5 cm Ao Asc: 3.10 2.1-3.4 cm Pulmonary Veins Pulm Vein S/D 1.40 Pulmonary Valve PV Pk Abhi: 1.24 Peak PV Grad: 6.00 Updated in Other Vendor System with Status of Final Robin Parson MD electronically signed on 11/15/2021 8:41:46 AM with status of Final
== END ==
LOC: HO.CARD 12:27
PROVIDERS: PCP Internal Medicine; Visit Provider Internal Medicine
DX: R06.00 Dyspnea, unspecified (principal)
CPT/HCPCS: 93306; Q9957

== ENCOUNTER → 2022-01-08 10:24 | Outpatient (BNVA) | payer OTHER, SELFPAY | PROVIDERS: PCP Internal Medicine; Visit Provider Internal Medicine Pulmonary Disease | DX: J45.909 Unspecified asthma, uncomplicated (principal); G47.33 Obstructive sleep apnea (adult) (pediatric); R06.09 Other forms of dyspnea | CPT/HCPCS: 99202 ==

== ENCOUNTER 2022-03-09 12:43 | Emergency (ER) | payer OTHER, SELFPAY ==
--- NOTE | ~2022-03-09 | XR_ITS ---
EXAMINATION: CHEST 2 VIEWS AND ABDOMEN 2 VIEWS CLINICAL INFORMATION: Shortness of breath and constipation COMPARISON: 10/28/2020 TECHNIQUE: As above FINDINGS: Chest is unremarkable. Lungs are clear. No ectopic air. No CHF. Heart and mediastinum normal. No pleural disease. Abdomen series demonstrates no free air. Clips consistent cholecystectomy. One dislodged clip in the right abdomen noted. The bowel gas pattern is unremarkable. XR/XR chest 2V IMPRESSION: No active chest disease. Unremarkable abdomen series.
--- NOTE | ~2022-03-09 | XR_ITS ---
EXAMINATION: CHEST 2 VIEWS AND ABDOMEN 2 VIEWS CLINICAL INFORMATION: Shortness of breath and constipation COMPARISON: 10/28/2020 TECHNIQUE: As above FINDINGS: Chest is unremarkable. Lungs are clear. No ectopic air. No CHF. Heart and mediastinum normal. No pleural disease. Abdomen series demonstrates no free air. Clips consistent cholecystectomy. One dislodged clip in the right abdomen noted. The bowel gas pattern is unremarkable. XR/XR KUB IMPRESSION: No active chest disease. Unremarkable abdomen series.
[2022-03-09 12:47] VITALS: BP 148/86; PULSE 100; O2SAT 98
[2022-03-09 12:52] VITALS: BP 155/90; PULSE 98; RESP 17; TEMP 36.6; O2SAT 95; BMI 37.0
--- NOTE | 2022-03-09 12:56 | ECG_ITS ---
Test Reason : SOB Blood Pressure : / mmHG Vent. Rate : 090 BPM Atrial Rate : 090 BPM P-R Int : 120 ms QRS Dur : 082 ms QT Int : 362 ms P-R-T Axes : 007 027 -14 degrees QTc Int : 442 ms Normal sinus rhythm Nonspecific T wave abnormality Abnormal ECG When compared with ECG of 14-FEB-2021 14:43, Nonspecific T wave abnormality is now Present Referred By: Generic ED Physician Electronically Signed By:CARLOS FARIAS
[2022-03-09 13:12] LABS: MANUAL DIFF FLAG NO
[2022-03-09 13:17] LABS: Basophils Percent Auto 0.1 % (0-2); Eosinophils Absolute Auto 0.1 X10*3/uL (0.0-0.4); Eosinophils Percent Auto 2.1 % (0-4); Hematocrit 43.5 % (42.0-52.0); Hemoglobin 13.7 g/dl (14.0-18.0); Imm Gran Abs Auto 0.03 X10*3/uL (0.00-0.03); Imm Gran Pct Auto 0.4 % (0.0-0.4); Lymphocytes Absolute Auto 1.2 X10*3/uL (1.2-4.9); Lymphocytes Percent Auto 17.5 % (20-40); Mean Corpuscular HGB Conc 31.5 g/dl (31.0-36.0); Mean Corpuscular Volume 82.5 fL (80.0-98.0); Mean Platelet Volume 8.7 fL (9.4-12.4); Monocytes Absolute Auto 0.6 X10*3/uL (0.1-1.2); Monocytes Percent Auto 9.2 % (2-11); Neutrophils Absolute Auto 4.8 x10*3/uL (2.0-8.3); Neutrophils Percent Auto 70.7 % (45-73); Platelet Count 273 X10*3/uL (160-400); Red Blood Count 5.27 X10*6/uL (4.60-5.80); Red Cell Distribution Width 13.1 % (11.0-16.0); White Blood Count 6.7 X10*3/uL (4.8-10.8)
[2022-03-09 13:41] LABS: Alanine Aminotransferase 38 U/L (0-40); Albumin Level 4.1 g/dL (3.5-5.0); Alkaline Phosphatase 134 U/L (39-117); Anion Gap 15 (12-20); Aspartate Amino Transferase 34 U/L (5-37); Bilirubin Direct 0.2 mg/dL (0.0-0.5); Bilirubin Total 0.3 mg/dL (0.0-1.0); Blood Urea Nitrogen 10 mg/dL (9-16); Calcium 9.4 mg/dL (8.4-10.2); Carbon Dioxide 28 mmol/L (22-29); Chloride 98 mmol/L (96-108); Estimated Glomerular Filt Rate > 60; Glucose Random 366 mg/dL (60-115); Lipase 26 U/L (8-78); Sodium 137 mmol/L (135-145); Total Protein 7.7 g/dL (6.5-8.0)
[2022-03-09 13:43] LABS: B Type Natriuretic Peptide < 10 pg/mL (<100)
[2022-03-09 13:45] LABS: Troponin-I High Sensitivity < 3.5 ng/L (<3.5-35.0)
== END 2022-03-09 17:20 | disposition left against medical advice (07) ==
PROVIDERS: Emergency Provider Emergency Medicine; PCP Internal Medicine
DX: K59.00 Constipation, unspecified (principal); N50.89 Other specified disorders of the male genital organs; R73.9 Hyperglycemia, unspecified; R06.02 Shortness of breath
CPT/HCPCS: 36415; 71046; 74018; 80048; 80076; 83690; 83880; 84484; 85025; 93005; 99283

== ENCOUNTER 2022-04-12 10:54 | Emergency (ER) | payer OTHER, SELFPAY ==
[2022-04-12 11:06] VITALS: BP 174/72; PULSE 110; O2SAT 95
[2022-04-12 12:32] VITALS: BP 169/89; PULSE 105; RESP 16; TEMP 36.2; O2SAT 95; BMI 33.5
[2022-04-12 13:07] LABS: Hematocrit 46.8 % (42.0-52.0); Hemoglobin 14.6 g/dl (14.0-18.0); Mean Corpuscular HGB Conc 31.2 g/dl (31.0-36.0); Mean Corpuscular Hemoglobin 25.8 pg (27.0-33.0); Mean Corpuscular Volume 82.7 fL (80.0-98.0); Mean Platelet Volume 9.2 fL (9.4-12.4); Platelet Count 283 X10*3/uL (160-400); Red Blood Count 5.66 X10*6/uL (4.60-5.80); Red Cell Distribution Width 13.1 % (11.0-16.0); White Blood Count 9.1 X10*3/uL (4.8-10.8)
[2022-04-12 13:17] LABS: Anion Gap 18 (12-20); Blood Urea Nitrogen 11 mg/dL (9-16); Calcium 9.5 mg/dL (8.4-10.2); Carbon Dioxide 22 mmol/L (22-29); Chloride 98 mmol/L (96-108); Creatinine Clr Calc Pharmacy 71.3; Estimated Glomerular Filt Rate > 60; Potassium 4.7 mmol/L (3.3-5.1); Sodium 133 mmol/L (135-145)
[2022-04-12 13:31] LABS: Glucose Random 535 mg/dL (60-115)
== END 2022-04-12 14:40 | disposition left against medical advice (07) ==
PROVIDERS: Emergency Provider Emergency Medicine; PCP Internal Medicine
DX: K59.00 Constipation, unspecified (principal); R10.9 Unspecified abdominal pain; Z79.899 Other long term (current) drug therapy
CPT/HCPCS: 36415; 80048; 85027; 99281; 99283

== ENCOUNTER 2022-07-11 12:06 | Outpatient (REF) | payer OTHER, SELFPAY ==
--- NOTE | 2022-07-11 10:30 | EMG_ITS ---
Please see scanned EMG / Nerve Conduction Report. MTDD
== END 2022-07-11 12:07 | disposition home or self-care (01) ==
LOC: HO.NEURO 12:06
PROVIDERS: PCP Registered Nurse; Visit Provider Family Medicine
DX: M79.604 Pain in right leg (principal)
CPT/HCPCS: 95885; 95913

== ENCOUNTER 2022-12-11 11:27 | Outpatient (REF) | payer OTHER, SELFPAY ==
--- NOTE | ~2022-12-11 | XR_ITS ---
EXAMINATION: XR CHEST CLINICAL INFORMATION: Asthma exacerbation. Three-week history of cough and wheezing. COMPARISON: 03/09/2022 TECHNIQUE: 2 views of the chest were obtained. FINDINGS: No significant abnormality is noted involving the heart, lungs, mediastinum, bony thorax or soft tissues. Surgical hardware right lower cervical spine. XR/XR chest 2V IMPRESSION: Unremarkable examination with no interval change.
== END 2022-12-11 11:28 | disposition home or self-care (01) ==
LOC: HO.HHCX 11:27
PROVIDERS: Visit Provider Emergency Medicine
DX: J45.901 Unspecified asthma with (acute) exacerbation (principal)
CPT/HCPCS: 71046

== ENCOUNTER 2023-02-01 13:50 | Outpatient (AMB) | payer OTHER, SELFPAY ==
--- NOTE | 2023-02-01 14:09 | MHC.OFFVIS ---
Intake Intake Visit Reasons: Phimosis Intake Note: New Patient presents today for initial visit phimosis Urology Medications: diflucan, lotrimin cream Blood Thinner: none Soybean Grower Required: No Accompanied by: Self / Same As Patient Allergies No Known Allergies [No Known Allergies*] Allergy (Verified 02/03/23 20:37) Medication List - Last Reconciled 02/03/23 by CEDRIC Leary- albuterol sulfate 90 mcg/actuation 1 inh inhalation QID PRN albuterol sulfate 90 mcg/actuation 2 puffs PO Q4-6H PRN bupropion HCl (Wellbutrin XL) 1 tab PO QAM dapagliflozin propanediol (Farxiga) 10 mg PO QAM fluticasone propionate 110 mcg/actuation (Flovent HFA) 2 puffs inhalation BID furosemide 40 mg PO QAM 30 days lisinopril 30 mg PO DAILY metformin ER 1,000 mg PO BID methadone 10 mg PO DAILY montelukast 1 tab PO QPM omeprazole 1 cap PO DAILY quetiapine 1 tab PO BEDTIME sennosides (Senna Laxative) 1 - 2 tabs PO BEDTIME PRN HPI HPI Comments History of Present Illness Details Shun is a 62-year-old male patient of Dr. Dunbar. He has a past medical history of asthma, depression, hypertension, history of substance abuse on methadone, and diabetes. He presents to the office today as a new patient for phimosis. In discussion with the patient today reports to be doing and feeling well. He reports following up with PCP regarding ongoing issues with unretractable foreskin to the shaft of his penis. He reports over the last 6 months or so he has been utilizing steroid cream with no affect at which time recommendations were made for urology referral for consultation of circumcision. In review of patient's chart last A1c 2018. Discussed obtaining more recent lab value and importance in doing so. Also positive urine toxicology reports noted. In discussion with the patient today regarding positive urine toxicology he becomes tearful discussing his ongoing miles with depression and the loss of many family members including mother, son, and siblings. In assessment of the patient today prepuce difficult to retract over the glans penis otherwise no open areas or abnormalites noted to penis, scrotum, and or testicles. Discussed at length substance abuse and impact of drugs and addiction on overall health and wellbeing. Patient otherwise denies any urinary issues or concerns at this time. He denies urinary urgency, urinary frequency, incontinence, nocturia, hematuria, dysuria, foul smelling urine, changes to urinary stream, flank pain, fever, and or chills. He is happy with his current voiding parameters. In office urinalysis results reviewed with the patient today. PVR 0 mL. He otherwise offers no issues or concerns at this time. FOR[facility] Medical History Asthma Depression HTN (hypertension) Hx of substance abuse Pancreatitis Surgical History History of ERCP History of mandibular surgery Hx of cholecystectomy Social History Alcohol intake: never Patient Tobacco Use Status: Never used Tobacco Substance Use Type: Heroin Review of Systems Const Reports no additional complaints Eyes Reports no additional complaints ENT Reports no additional complaints Card Reports as per HPI Resp Reports as per HPI GI Reports no additional complaints Reports as per HPI Musc Reports no additional complaints Neuro Reports no additional complaints Psych Reports as per HPI Endo Reports as per HPI Physical Exam Const General: cooperative, healthy appearing, comfortable, no acute distress, well developed, alert and awake Nutritional Appearance: overweight Orientation/consciousness: patient oriented x3 Limitations: no limitations HEENT Head: Yes normal to inspection, Yes normocephalic and Yes atraumatic Ears: hearing grossly normal bilaterally Eyes General: appearance normal, both eyes and all related structures Neck Neck: Yes normal visual inspection and Yes trachea midline Chest Chest palpation & inspection: normal inspection of the chest Resp Effort & Inspection: normal respiratory effort and able to speak in complete sentences Cardio Rate: regular rate GI Inspection: Yes normal to inspection General: Yes no CVA tenderness Penis: uncircumcised and phimosis Scrotum: scrotum normal Testes: Testes normal Back/Spine/Pelvis Back: no CVA tenderness Skin General skin exam: no rashes or lesions noted Neuro General: patient oriented x3 Extrem General: Yes normal to inspection Psych Appearance: grossly normal and well kempt Mental Status: mental status grossly normal Speech and movement: Normal speech and movement present and Clear speech present Affect: normal affect (emotional ) Attitude: cooperative Thought process: Normal thought process present Thought content: Normal thought content present Insight: Fair insight present (Psych) Judgement: Fair judgement present (Psych) Results AMB Urinalysis, Automated UA Leukoctes 15 Aysha/uL Last Edit by Eulogio Whiteside on 02/01/23 14:29 UA Nitrite Last Edit by Eulogio Whiteside on 02/01/23 14:29 UA Urobilinogen 0.2 mg/dL Last Edit by Deborae Miesha on 02/01/23 14:29 UA Protein 15 mg/dL Last Edit by [email or web address] on 02/01/23 14:29 UA pH 6.5 Last Edit by [email or web address] [email or web address] on 02/01/23 14:29 UA Blood 0 Kwadwo/uL Last Edit by [email or web address] on 02/01/23 14:29 UA Specific [place] 1.015 Last Edit by [email or web address] [email or web address] on 02/01/23 14:29 UA Ketone Last Edit by [email or web address] [email or web address] on 02/01/23 14:29 UA Bilirubin 0 mg/dL Last Edit by [email or web address] on 02/01/23 14:29 UA Glucose 0 mg/dL Last Edit by [email or web address] [email or web address] on 02/01/23 14:29 Results Reviewed Results Reviewed: Laboratory Last Values Urine pH (Auto) 6.5 02/01/23 14:11 Specific [place] (Auto) 1.015 02/01/23 14:11 Urine Protein (Auto) 15 mg/dL 02/01/23 14:11 Glucose (UA)(Auto) 0 mg/dL 02/01/23 14:11 Urine Blood (Auto) 0 Kwadwo/uL 02/01/23 14:11 Urine Bilirubin (Auto) 0 mg/dL 02/01/23 14:11 Urine Urobilinogen (Auto) 0.2 mg/dL 02/01/23 14:11 Leukocyte Esterase (Auto) 15 Aysha/uL 02/01/23 14:11 Assessment & Plan Assessment & Plan (1) Phimosis of penis: Code(s): N47.1 - Phimosis Plan: Risks, benefits and alternatives to therapy were discussed. These include but are not limited to infection, bleeding, damage to local organs and tissues, need for further interventions. ? Anesthetic risks regarding cardiac arrhythmia, blood clots, and potential mortality were discussed. The patient understands the typical recovery time and the outpatient nature of the procedure. After consideration of these risks the patient gives full informed consent and they wish to move ahead with the procedure. Plan In office urinalysis results reviewed with the patient today; as noted above. PVR 0 mL. Discussed circumcision risks versus benefits versus surveillance monitoring and utilization/continuation of topical steroid cream Will obtain more recent A1c level to ensure level is adequate for surgical procedure and healing process. Discussed at length substance abuse and impact of drugs and addiction on overall health and wellbeing. All questions were answered. Discussed obtianing lab prior to surgical procedure. Will schedule for circumcision with Dr. Smith as discussed. Follow-up status post circumcision per Dr. Smith's orders; or sooner with any questions, concerns, and or issues. Orders: Orders Hemoglobin A1c 02/01/23 E11.9 - Type 2 diabetes mellitus without complications AMB Urinalysis Automated 02/01/23 Z13.9 - Encounter for screening, unspecified Medications: New betamethasone dipropionate 0.05% Thin coat 2 times per day 1 appl topical BID 15 grams 0RF Q55.69 - Other congenital malformation of penis Patient Instructions: The patient had an opportunity to ask questions regarding the treatment plan. All questions were answered. Physical exam, labs, and imaging were discussed and reviewed in detail. As well as risks, benefits, and discussion of treatment choices. No major barriers to understanding were identified. The patient expressed understanding and agreement with the above treatment plan. The patient was made aware they should contact our office by phone for worsening of their current condition, the appearance of new symptoms, or with any questions or concerns. Compliance is encouraged with any medications and follow up testing that is ordered. It is a privilege to be allowed the opportunity to participate in? your urological care.? Again, if you have any questions or concerns If you have any questions or concerns please do not hesitate to contact me. The office is [phone]. This note is constructed using voice recognition software. While every effort has been made to ensure accuracy fire extinguisher inspector errors may have been included. Yours sincerely, LESLIE Leary Coding Level of Care Code New Pt Level 4 (95733) Diagnoses Phimosis of penis N47.1
== END 2023-02-01 15:09 | disposition home or self-care (01) ==
PROVIDERS: PCP Registered Nurse; Visit Provider Nurse Practitioner Family
DX: N47.1 Phimosis (principal)
CPT/HCPCS: 99204

== ENCOUNTER → 2023-02-01 13:50 | Outpatient (BNVA) | payer OTHER, SELFPAY | PROVIDERS: PCP Registered Nurse; Visit Provider Nurse Practitioner Family | DX: N47.1 Phimosis (principal); E11.9 Type 2 diabetes mellitus without complications; Z79.899 Other long term (current) drug therapy | CPT/HCPCS: 99202 ==

== ENCOUNTER 2023-02-04 11:53 | Outpatient (REF) | payer OTHER, SELFPAY ==
[2023-02-04 14:11] LABS: Estimated Average Glucose 197 mg/dL; Hemoglobin A1C 258.5724 umol/L; Hemoglobin A1c % 8.5 %
== END 2023-02-04 11:54 | disposition home or self-care (01) ==
LOC: HO.HHCL 11:53
PROVIDERS: Visit Provider Nurse Practitioner Family
DX: E11.9 Type 2 diabetes mellitus without complications (principal)
CPT/HCPCS: 36415; 83036

== ENCOUNTER 2023-02-15 18:56 | Outpatient (REF) | payer OTHER, SELFPAY ==
[2023-02-15 19:47] LABS: Influenza A PCR NEGATIVE (Negative); Influenza B PCR NEGATIVE (Negative); Resp Syncy Virus RNA Qual PCR NEGATIVE (Negative); SARS COV2 PCR INHOUSE NEGATIVE (Negative)
== END 2023-02-15 18:57 | disposition home or self-care (01) ==
LOC: HO.LNP 18:56
PROVIDERS: Visit Provider Emergency Medicine
DX: J45.51 Severe persistent asthma with (acute) exacerbation (principal); Z20.822 Contact with and (suspected) exposure to COVID-19
CPT/HCPCS: 0241U

== ENCOUNTER 2023-03-04 09:33 | Outpatient (AMB) | payer OTHER, SELFPAY ==
[2023-03-04 09:39] VITALS: BP 140/70; PULSE 96; O2SAT 91; BMI 35.2
--- NOTE | 2023-03-04 09:39 | MHC.OFFVIS ---
Intake Vital Signs 03/04/23 09:39 Height 5 ft 4 in Weight 205 lb BMI 35.2 BP 140/70 H Blood Pressure Location Lt brachial Pulse 96 Pulse Source Pulse Oximeter Pulse Oximetry (%) 91 L Oxygen Delivery Method Room Air Intake Visit Reasons: Asthma Intake Note: pt is here as a new patient, he is very wheezy upon entering the room. His oxygen was at 91 with going up and down to 96 back to 90. He states he had covid about 8 months ago, (no hospital) and since than his lungs sound this way. He does feel short of breath with walking and climbing, but just sitting here today, he is short. 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 Allergies No Known Allergies [No Known Allergies*] Allergy (Verified 03/04/23 10:35) Medication List - Last Reconciled 03/04/23 by Marie Rico MD albuterol sulfate 90 mcg/actuation 2 puffs PO Q4-6H PRN betamethasone dipropionate 0.05% 1 appl topical BID bupropion HCl (Wellbutrin XL) 1 tab PO QAM dapagliflozin propanediol (Farxiga) 10 mg PO QAM fluticasone propionate 110 mcg/actuation (Flovent HFA) 2 puffs inhalation BID furosemide 40 mg PO QAM 30 days lisinopril 30 mg PO DAILY methadone 10 mg PO DAILY montelukast 1 tab PO QPM quetiapine 25 mg PO BEDTIME PRN Do you need a note to return to daycare/school/sports/work: No HPI Asthma HPI Details 62 years old gentleman is being seen for the 1st time for pulmonary evaluation and management. He claims that since age 17 he has had problem of intermittent wheezing. He had COVID-19 infection last year and after that his breathing has become much worse. He complains of frequent bouts. Of cough and wheezing He gets short of breath and wheezy on walking around only 1 block or so. Sometime even in the house the he is having bouts of wheezing. He is using ProAir 2 puffs Q 4-6 hours p.r.n. but say is it does not help. He has been treated with Flovent-110 but not using it at present. Has not been hospitalized with any acute breathing problems. Patient denies smoking, or using part. He does have past history of opioids abuse and currently is on methadone a but only 10 mg a day. Has mild intermittent nasal congestion, and treated with montelukast 10 mg daily. He has been grossly overweight especially in the past few years and claims that this is weight gain happens after each time he uses a course of prednisone . He is having difficulty in sleeping at night, he tends to go to sleep around 02:00 o'clock and wakes at 05:00. AM . Then during the daytime he keeps on falling asleep very frequently. In the afternoon especially if he is in the chair or recliner he can not fall asleep for a few hours. If he is reading, watching TV, or just sittings quiet after eating he tends to fall asleep. ESS = 12/24 During the daytime he remains quite tired. He is not able to lose much weight as he say is he does not eat any fruits are with the tables. And also does not eat much bread He is the all being followed by his primary care physician at [facility] and, say is that he is the waiting to be referred to a dietitian. During the daytime he is not able to walk much because he becomes short of breath and wheezy. [facility] Medical History (Updated 03/04/23 @ 13:23 by Marie Rico MD) Obesity (BMI 30-39.9) Hx of substance abuse Pancreatitis Depression HTN (hypertension) Asthma Surgical History History of mandibular surgery History of ERCP Hx of cholecystectomy Social History Alcohol intake: never Patient Tobacco Use Status: Never used Tobacco Substance Use Type: Heroin Review of Systems Const All systems reviewed & are unremarkable except as noted in HPI and below Eyes Reports no additional complaints ENT Reports nasal congestion (mild off and on ) Card Denies chest pain, Denies irregular heart rhythm and Denies leg edema Resp Reports as per HPI GI Reports no additional complaints Reports no additional complaints Musc Reports back pain Skin/Breast Reports system reviewed and no additional complaints, except as documented Neuro Reports no additional complaints Psych Reports anxiety Endo Reports other (hyperglycemia ) Aller/Immun Reports no additional complaints Physical Exam Vital Signs: Last Vital Signs Pulse 96 03/04/23 09:39 BP 140/70 H 03/04/23 09:39 Pulse Ox 91 L 03/04/23 09:39 Oxygen Delivery Method Room Air 03/04/23 09:39 BMI result Body Mass Index 35.2 Const Other: Grossly overweight with a round face. General: comfortable, no acute distress, alert and awake Orientation/consciousness: patient oriented x3 HEENT Head: Yes normal to inspection General nose exam: No nasal polyps present and No nasal discharge present Face and sinus: Yes sinuses nontender Mouth: oropharynx abnormals (Tongue is placed back oropharynx is narrow, Mallampati scale 4) Throat: Yes posterior oropharynx normal Eyes General: appearance normal, both eyes and all related structures Neck Neck: Yes normal visual inspection, Yes no lymphadenopathy, Yes trachea midline, Yes no JVD and Yes other (Neck circumference 17 in) Thyroid: Thyroid normal Chest Chest palpation & inspection: normal inspection of the chest, normal palpation of entire chest wall and no tenderness Resp Other: Percussion note is resonant, breath sounds are distant, There are a few expiratory wheezes over the right lower lobe. Cardio Palpation: PMI not normal (PMI not palpable) Rate: regular rate Rhythm: regular rhythm Heart sounds: no gallops and no murmurs GI Palpation (GI): Soft to palpation, Tenderness to palpation present (GI), No hepatosplenomegaly present and Palpable mass present Auscultation: normal bowel sounds Back/Spine/Pelvis Thoracic/Lumbar Spine: thoracic and lumbar spine normal to inspection and thoraco-lumbar ROM limited Skin General skin exam: no rashes or lesions noted Neuro General: patient oriented x3 and no focal motor deficits Cranial nerves: Yes CN's II-XII intact bilaterally Extrem General: Yes normal to inspection, Yes no clubbing, cyanosis or edema, Yes no calf tenderness and Yes venous stasis dermatitis (Mild over the lower parts of the legs) Psych Appearance: grossly normal and well kempt Speech and movement: Normal speech and movement present Assessment & Plan Assessment & Plan (1) Obesity (BMI 30-39.9): Comment: The patient is moderately obese with a round face and short/obese neck. Code(s): E66.9 - Obesity, unspecified (2) MALATHI (obstructive sleep apnea): Comment: Physical features, and his symptoms are suggestive of obstructive sleep apnea. Daytime sleepiness with [place] Sleepiness Scale 06/16. HOME-BASED SLEEP STUDY IS BEING SCHEDULED. I EDUCATED HIM ABOUT SLEEP APNEA, HE SHOULD TRY TO IMPROVE HIS ALL HOURS OF SLEEP AT NIGHT, EVEN IF HE HAS TO SLEEP IN A RECLINER. FURTHER PLANS WILL BE MADE AFTER THE SLEEP STUDY IS DONE. Code(s): G47.33 - Obstructive sleep apnea (adult) (pediatric) (3) Asthma: Comment: SYMPTOMS ARE SUGGESTIVE OF BRONCHIAL ASTHMA, CHRONIC INTERMITTENT. HOWEVER HIS SYMPTOMS OF GETTING SHORT OF BREATH AND SOME WHEEZING ON EXERTION, MAY ALSO BE DUE TO UPPER AIRWAY SYNDROME. HE WILL BE SCHEDULED FOR PULMONARY FUNCTION TEST. AND FURTHER PLANS FOR ADJUSTMENT OF HIS MEDICAL REGIMEN WOULD BE MADE AFTER THE PFT IS DONE. TODAY HE WILL HAVE A CHEST X-RAY, TO RULE OUT ANY INTRINSIC PARENCHYMAL LUNG DISEASE Code(s): J45.909 - Unspecified asthma, uncomplicated Orders: Orders XR chest 2V Today E66.9 - Obesity, unspecified, G47.33 - Obstructive sleep apnea (adult) (pediatric), J45.909 - Unspecified asthma, uncomplicated Coding Level of Care Code New Pt Level 4 (31648) Diagnoses Obesity (BMI 30-39.9) E66.9 MALATHI (obstructive sleep apnea) G47.33 Asthma J45.909
== END 2023-03-04 10:35 | disposition home or self-care (01) ==
PROVIDERS: PCP Registered Nurse; Visit Provider Internal Medicine
DX: E66.9 Obesity, unspecified (principal); G47.33 Obstructive sleep apnea (adult) (pediatric); J45.909 Unspecified asthma, uncomplicated
CPT/HCPCS: 99204

== ENCOUNTER 2023-03-04 09:33 | Outpatient (REF) | payer OTHER, SELFPAY ==
--- NOTE | ~2023-03-04 | XR_ITS ---
EXAMINATION: XR CHEST 2 VIEWS CLINICAL INFORMATION: Obesity. COMPARISON: Chest radiographs dated 12/11/2022. TECHNIQUE: Frontal and lateral views of the chest were obtained. FINDINGS: The heart, great vessels, pulmonary vasculature and mediastinum are normal. The lungs show no focal infiltrate, effusion or pneumothorax. There is mild elevation of the right hemidiaphragm. There is no acute osseous abnormality. XR/XR chest 2V IMPRESSION: No active cardiopulmonary disease.
== END 2023-03-04 09:34 | disposition home or self-care (01) ==
LOC: HO.XRAY 09:33
PROVIDERS: PCP Registered Nurse; Visit Provider Internal Medicine
DX: J45.909 Unspecified asthma, uncomplicated (principal); G47.33 Obstructive sleep apnea (adult) (pediatric); E66.9 Obesity, unspecified; Z79.899 Other long term (current) drug therapy
CPT/HCPCS: 71046; 99202

== ENCOUNTER 2023-04-10 10:49 | Outpatient (REF) | payer OTHER, SELFPAY ==
[2023-04-10 13:37] LABS: MANUAL DIFF FLAG NO
[2023-04-10 14:02] LABS: Basophils Percent Auto 0.3 % (0-2); Eosinophils Absolute Auto 0.4 X10*3/uL (0.0-0.4); Eosinophils Percent Auto 4.9 % (0-4); Hematocrit 43.1 % (42.0-52.0); Hemoglobin 13.5 g/dl (14.0-18.0); Imm Gran Abs Auto 0.03 X10*3/uL (0.00-0.03); Imm Gran Pct Auto 0.3 % (0.0-0.4); Mean Corpuscular HGB Conc 31.3 g/dl (31.0-36.0); Mean Corpuscular Hemoglobin 26.5 pg (27.0-33.0); Mean Corpuscular Volume 84.5 fL (80.0-98.0); Monocytes Absolute Auto 0.8 X10*3/uL (0.1-1.2); Monocytes Percent Auto 9.3 % (2-11); Neutrophils Absolute Auto 4.7 x10*3/uL (2.0-8.3); Neutrophils Percent Auto 52.2 % (45-73); Platelet Count 289 X10*3/uL (160-400); Red Cell Distribution Width 12.8 % (11.0-16.0); White Blood Count 8.9 X10*3/uL (4.8-10.8)
[2023-04-10 14:10] LABS: Estimated Average Glucose 203 mg/dL; Hemoglobin A1c % 8.7 % (<6.0)
[2023-04-10 14:15] LABS: Alanine Aminotransferase 25 U/L (0-40); Albumin Level 4.1 g/dL (3.5-5.0); Alkaline Phosphatase 82 U/L (39-117); Anion Gap 14 (12-20); Aspartate Amino Transferase 22 U/L (5-37); Bilirubin Total 0.6 mg/dL (0.0-1.0); Blood Urea Nitrogen 10 mg/dL (9-16); Calcium 9.6 mg/dL (8.4-10.2); Carbon Dioxide 25 mmol/L (22-29); Chloride 104 mmol/L (96-108); Cholesterol 159 mg/dL (<200); Estimated Glomerular Filt Rate > 60; Glucose Random 134 mg/dL (60-115); HDL Cholesterol 50 mg/dL (>40); LDL Cholesterol Calculated 89 mg/dL (<100); Sodium 139 mmol/L (135-145); Total Protein 7.7 g/dL (6.5-8.0); Triglycerides 104 mg/dL (<150)
[2023-04-10 14:32] LABS: TSH reflex Free T4 4.45 uIU/mL (0.32-4.0)
[2023-04-10 14:39] LABS: Folate 13.8 ng/mL (> or = 4.0); Vitamin B12 788 pg/mL (200-900)
[2023-04-10 15:03] LABS: Free T4 (Free Thyroxine) 0.77 ng/dL (0.71-1.85)
[2023-04-10 15:12] LABS: Creatinine Urine 159.91 mg/dL; Microalbum/Creatinine Ratio Ur 4.3 ug/mg cr (<30)
[2023-04-12 07:40] LABS: Syphilis Screen Nonreactive (Nonreactive)
[2023-04-12 07:59] LABS: HBS Num1 0.42 mIU/mL (0-7.99); HBc Num1 0.11 S/CO (0.00-0.79); HBsAGNum1 0.46 S/CO (0.00-0.99); HIV AB/AG Nonreactive (Nonreactive); HIV Num 1 0.06 S/CO (0.00-0.99); Hepatitis B Core Antibody Nonreactive (Nonreactive); Hepatitis B Surface Antigen Negative (Negative); ~HepC Num1 0.12 S/CO (0.00-0.79); ~Hepatitis B Surface Antibody NONREACTIVE (Nonreactive); ~Hepatitis C Antibody Nonreactive (Nonreactive)
[2023-04-13 22:13] LABS: VITAMIN D (1,25 OH) D3 61 pg/mL; Vit D (1,25-Dihydroxy) Total 61 pg/mL (18-72); Vitamin D (1,25 OH) D2 <8 pg/mL
== END 2023-04-10 10:50 | disposition home or self-care (01) ==
LOC: HO.HHCL 10:49
PROVIDERS: Visit Provider Student in an Organized Health Care Education/Training Program
DX: Z00.00 Encounter for general adult medical examination without abnormal findings (principal); Z20.2 Contact with and (suspected) exposure to infections with a predominantly sexual mode of transmission; E08.49 Diabetes mellitus due to underlying condition with other diabetic neurological complication; Z13.220 Encounter for screening for lipoid disorders; Z13.29 Encounter for screening for other suspected endocrine disorder; Z13.21 Encounter for screening for nutritional disorder
CPT/HCPCS: 36415; 80053; 80061; 82043; 82570; 82607; 82652; 82746; 83036; 84439; 84443; 85025; 86704; 86706; 86780; 86803; 87340; 87389

== ENCOUNTER 2023-04-11 08:13 | Outpatient (REF) | payer OTHER, SELFPAY ==
--- NOTE | 2023-04-11 | PFT_ITS ---
Forced vital capacity 71%, FEV1 62%, FEV1/FVC ratio is 69. [id number] 42%, MVV 58%. Post bronchodilator therapy, there is no significant change except for slight improvement in [id number]. Lung volumes; total lung capacity 70%, residual volume 81%. Diffusion capacity 93%. CONCLUSION: Obstructive airway disorder, moderately severe, there is minimal improvement after bronchodilator therapy. Restrictive pulmonary disorder, moderately severe. Clinical correlation recommended. Marie Rico MD MSB/MODL / [id number]
== END 2023-04-11 08:14 | disposition home or self-care (01) ==
LOC: HO.RESP 08:13
PROVIDERS: PCP Registered Nurse; Visit Provider Internal Medicine
DX: G47.33 Obstructive sleep apnea (adult) (pediatric) (principal); J45.909 Unspecified asthma, uncomplicated; R06.09 Other forms of dyspnea; E66.9 Obesity, unspecified; R40.0 Somnolence
CPT/HCPCS: 94010; 94727; 94729; 95806

== ENCOUNTER → 2023-04-11 10:01 | Outpatient (BNV) | payer OTHER, SELFPAY | PROVIDERS: PCP Registered Nurse; Visit Provider Internal Medicine | DX: J45.909 Unspecified asthma, uncomplicated (principal) | CPT/HCPCS: 94060; 94727; 94729; 95806 ==

== ENCOUNTER 2023-04-18 09:13 | Outpatient (REF) | payer OTHER, SELFPAY ==
--- NOTE | 2023-04-18 | EMG_ITS ---
FINDINGS: Right tibial and peroneal motor studies were performed. Right superficial peroneal and sural sensory studies were performed. Tibial H-reflex was obtained and paraspinal muscles were tested with a needle. 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 MD REINA Rand/MANJEET / [id number]
== END 2023-04-18 09:14 | disposition home or self-care (01) ==
LOC: HO.NEURO 09:13
PROVIDERS: PCP Registered Nurse; Visit Provider Family Medicine
DX: M79.604 Pain in right leg (principal); E66.9 Obesity, unspecified; G47.33 Obstructive sleep apnea (adult) (pediatric); J45.909 Unspecified asthma, uncomplicated
CPT/HCPCS: 95886; 95909; 99212

== ENCOUNTER 2023-04-18 09:33 | Outpatient (AMB) | payer OTHER, SELFPAY ==
--- NOTE | 2023-04-18 10:32 | A.OFFVIS_ITS ---
Intake Vital Signs 04/18/23 10:33 Height 5 ft 4 in Weight 207 lb BMI 35.5 BP 120/78 Blood Pressure Location Lt brachial Position Sitting Pulse 74 Pulse Source Pulse Oximeter Pulse Oximetry (%) 93 Oxygen Delivery Method Room Air Intake Visit Reasons: Asthma Intake Note: pt is here for follow up and still has wheeze, cough and short of breath, in am when walking he has a lot of tightness in chest, and feels like he has a lot of phlegm in chest for 6 months and does not understand why. here for sleep study and pft results. Election Assistant Required: No Allergies No Known Allergies [No Known Allergies*] Allergy (Verified 04/18/23 10:46) Medication List - Last Reconciled 04/18/23 by Marie Rico MD albuterol sulfate 90 mcg/actuation 2 puffs PO Q4-6H PRN betamethasone dipropionate 0.05% 1 appl topical BID bupropion HCl (Wellbutrin XL) 1 tab PO QAM dapagliflozin propanediol (Farxiga) 10 mg PO QAM fluticasone propionate 110 mcg/actuation (Flovent HFA) 2 puffs inhalation BID furosemide 40 mg PO QAM 30 days lisinopril 30 mg PO DAILY methadone 10 mg PO DAILY montelukast 1 tab PO QPM quetiapine 25 mg PO BEDTIME PRN Do you need a note to return to daycare/school/sports/work: No HPI Asthma HPI Details 62 years old gentleman is here for foll ow-up, after pulmonary function test and sleep study. Continues to have frequent bouts of wheezing during the daytime as well as wakes up with some wheezing sounds at night. He is using Flovent b.i.d., montelukast 10 mg daily and still continues to have wheezing. The only medicine which helps is use of albuterol. He claims that he is using albuterol inhalations 1 or 2 puffs at a time every 4- 6 hours during the day. He say is that use of Flovent has not helped. He has had Advair Diskus in the past but not using at present. His frequent awakening at night and daytime somnolence continues. The sleep study is positive for sleep apnea, but only mild. [facility] Medical History Somnolence, daytime Obesity (BMI 30-39.9) Hx of substance abuse Pancreatitis Depression HTN (hypertension) Asthma Surgical History History of mandibular surgery History of ERCP Hx of cholecystectomy Social History Alcohol intake: never Patient Tobacco Use Status: Never used Tobacco Substance Use Type: Heroin Review of Systems Const All systems reviewed & are unremarkable except as noted in HPI and below Eyes Reports no additional complaints ENT Reports nasal congestion (mild off and on ) Card Denies chest pain, Denies irregular heart rhythm and Denies leg edema Resp Reports as per HPI GI Reports no additional complaints Reports no additional complaints Musc Reports back pain Skin/Breast Reports system reviewed and no additional complaints, except as documented Neuro Reports no additional complaints Psych Reports anxiety Endo Reports other (hyperglycemia ) Aller/Immun Reports no additional complaints Physical Exam Vital Signs: Last Vital Signs Pulse 74 04/18/23 10:33 BP 120/78 04/18/23 10:33 Pulse Ox 93 04/18/23 10:33 Oxygen Delivery Method Room Air 04/18/23 10:33 BMI result Body Mass Index 35.5 Const Other: Grossly overweight with a round face. General: comfortable, no acute distress, alert and awake Orientation/consciousness: patient oriented x3 HEENT Head: Yes normal to inspection General nose exam: No nasal polyps present and No nasal discharge present Face and sinus: Yes sinuses nontender Mouth: oropharynx abnormals (Tongue is placed back oropharynx is narrow, Mallampati scale 4) Throat: Yes posterior oropharynx normal Eyes General: appearance normal, both eyes and all related structures Neck Neck: Yes normal visual inspection, Yes no lymphadenopathy, Yes trachea midline, Yes no JVD and Yes other (Neck circumference 17 in) Thyroid: Thyroid normal Chest Chest palpation & inspection: normal inspection of the chest, normal palpation of entire chest wall and no tenderness Resp Other: Percussion note is resonant, breath sounds are distant, There are scattered expiratory wheezes on both sides . Cardio Palpation: PMI not normal (PMI not palpable) Rate: regular rate Rhythm: regular rhythm Heart sounds: no gallops and no murmurs GI Palpation (GI): Soft to palpation, nontender, No hepatosplenomegaly present, no masses and Other GI palpation findings present (Abdomen is moderately obese and protuberant) Auscultation: normal bowel sounds Back/Spine/Pelvis Thoracic/Lumbar Spine: thoracic and lumbar spine normal to inspection and thoraco-lumbar ROM limited Skin General skin exam: no rashes or lesions noted Neuro General: patient oriented x3 and no focal motor deficits Cranial nerves: Yes CN's II-XII intact bilaterally Extrem General: Yes normal to inspection, Yes no clubbing, cyanosis or edema, Yes no calf tenderness and Yes venous stasis dermatitis (Mild over the lower parts of the legs) Psych Appearance: grossly normal and well kempt Speech and movement: Normal speech and movement present Results Reviewed Results Reviewed: Pulmonary function test on 04/11/2023 C/W mild restrictive pulmonary disorder and mild to moderate obstructive airway disorder, there is minimal response to bronchodilator therapy HOME-BASED SLEEP STUDY ON 04/11/2023 c/w MILD OBSTRUCTIVE SLEEP APNEA WITH TOTAL SLEEP TIME AHI 8.6 PREDOMINANTLY IN PRONE POSITION AND ALSO IN UPRIGHT POSITION NO SIGNIFICANT NOCTURNAL HYPOXEMIA CHEST X-RAY WAS NORMAL. Assessment & Plan Assessment & Plan (1) Obesity (BMI 30-39.9): Comment: The patient is moderately obese with a round face and short/obese neck. Discussed with him. He is not able to lose any weight. He cannot do any exercise. Has try to cut down the portions of his food . Still cannot lose weight Code(s): E66.9 - Obesity, unspecified (2) MALATHI (obstructive sleep apnea): Comment: Physical features, and his symptoms are suggestive of obstructive sleep apnea. Daytime sleepiness with [place] Sleepiness Scale 12/24. HOME-BASED SLEEP STUDY , shows that he does have obstructive sleep apnea, it is mild, but he is symptomatic. Discussed with him about weight loss. He tells me frankly that he would not be able to lose any weight. Plan : Because he is symptomatic and not any potential to lose weight, I would go ahead and order is CPAP therapy for him. He was educated about. The CPAP therapy Ordered CPAP with auto PAP mode and pressure setting 6-20 cm using a fullface mask. Patient would be followed up closely for compliance and benefits. Code(s): G47.33 - Obstructive sleep apnea (adult) (pediatric) (3) Asthma: Comment: SYMPTOMS ARE SUGGESTIVE OF BRONCHIAL ASTHMA, CHRONIC INTERMITTENT. PULMONARY FUNCTION TEST SHOWS MILD RESTRICTIVE WELL MILD TO MODERATE OBSTRUCTIVE AIRWAY DISORDER. HE CONTINUES TO HAVE EXPIRATORY WHEEZES EVEN WHILE HE IS SITTING. TX : ADVAIR 250-51 INHALATION B.I.D.. MONTELUKAST 10 MG DAILY. ALBUTEROL HFA 2 PUFFS Q 4-6 HOURS P.R.N., HE ADVISE THAT HE SHOULD NOT USE ALBUTEROL EXCESSIVELY. Code(s): J45.909 - Unspecified asthma, uncomplicated Coding Level of Care Code Est Pt Level 4 (85293) Diagnoses Obesity (BMI 30-39.9) E66.9 MALATHI (obstructive sleep apnea) G47.33 Asthma J45.909
[2023-04-18 10:33] VITALS: BP 120/78; PULSE 74; O2SAT 93; BMI 35.5
== END 2023-04-18 10:56 | disposition home or self-care (01) ==
PROVIDERS: PCP Registered Nurse; Visit Provider Internal Medicine
DX: E66.9 Obesity, unspecified (principal); G47.33 Obstructive sleep apnea (adult) (pediatric); J45.909 Unspecified asthma, uncomplicated
CPT/HCPCS: 99214

== ENCOUNTER 2023-05-20 10:55 | Emergency (ER) | payer OTHER, SELFPAY ==
--- NOTE | ~2023-05-20 | XR_ITS ---
EXAMINATION: XR CHEST CLINICAL INFORMATION: Shortness of breath COMPARISON: Chest radiographs of 03/04/2023 TECHNIQUE: Frontal view of the chest was obtained. FINDINGS: Evaluation limited due to patient rotation. There is no gross pneumothorax. No gross focal consolidation to suggest pneumonia. No pleural effusion. XR/XR chest 1V IMPRESSION: Mild streaky opacities in the lower left lung may represent atelectasis or pneumonia. Recommend follow-up imaging in 4-6 weeks to confirm resolution and exclude underlying pathology. This study was presented today at 05/20/2023 at 1:00 PM for interpretation. Stat results provided at this time as requested by referring provider.
--- NOTE | 2023-05-20 11:04 | ED.SOB ---
HPI - SOB/Dyspnea General Chief Complaint: Dyspnea Stated Complaint: SOB FROM DR WAYNE,DUONEB/STEROIDS GIVEN PER EMS Time Seen by Provider: 05/20/23 10:57 Source: patient and EMS Mode of arrival: EMS Limitations: no limitations History of Present Illness HPI Narrative: shortness of breath for weeks, went to the walk in got a duoneb and they called EMS. EMS gave 125mg solumedrol and another duoneb. Related Data Home Medications Medication Instructions Recorded Confirmed albuterol sulfate 90 mcg/actuation 2 puff PO Q4-6H PRN Wheezing 10/02/21 03/04/23 aerosol inhaler bupropion HCl 150 mg 24 hr tablet, 1 tab PO QAM 10/02/21 03/04/23 extended release (Wellbutrin XL) fluticasone propionate 110 2 puff inhalation BID 10/02/21 03/04/23 mcg/actuation HFA aerosol inhaler (Flovent HFA) methadone 10 mg/5 mL oral solution 10 mg PO DAILY 10/02/21 03/04/23 montelukast 10 mg tablet 1 tab PO QPM 10/02/21 03/04/23 dapagliflozin propanediol 10 mg 10 mg PO QAM 02/01/23 03/04/23 tablet (Farxiga) lisinopril 30 mg tablet 30 mg PO DAILY 02/01/23 03/04/23 quetiapine 25 mg tablet 25 mg PO BEDTIME PRN 03/04/23 03/04/23 Previous Rx's Medication Instructions Recorded furosemide 40 mg tablet 40 mg PO QAM 30 days #30 tabs 01/08/22 betamethasone dipropionate 0.05 % 1 appl topical BID #15 grams 02/03/23 topical ointment prednisone 20 mg tablet 60 mg (3 x 20 mg) PO DAILY #12 tabs 05/20/23 Allergies Allergy/AdvReac Type Severity Reaction Status Date / Time No Known Allergies Allergy Verified 05/20/23 11:18 [No Known Allergies*] Review of Systems Review of Systems: Yes all other systems are reviewed and are negative Neurologic: Denies Sensory deficit (Neuro) PMFSH Past Medical History Medical History Somnolence, daytime Obesity (BMI 30-39.9) Hx of substance abuse Pancreatitis Depression HTN (hypertension) Asthma Surgical History History of mandibular surgery History of ERCP Hx of cholecystectomy Social History Alcohol intake: never Patient Tobacco Use Status: Never used Tobacco Substance Use Type: Heroin Physical Exam Vital Signs: Vital Signs: Last Vital Signs Pulse 78 05/20/23 11:51 Resp 18 05/20/23 11:51 BP 123/59 L 05/20/23 11:06 Pulse Ox 99 05/20/23 11:06 O2 Del Method Aerosol Mask 05/20/23 11:06 BMI result Body Mass Index 35.8 Const: Other: extremely short of breath Nutritional Appearance: obese Orientation/consciousness: oriented to person and patient oriented x3 Limitations: no limitations HEENT: Head: Yes normal to inspection Ears: external ears normal General nose exam: Normal external nose present Mouth: Normal oral and palatal mucosa present and oropharynx normal Throat: Yes posterior oropharynx normal Eyes: General: appearance normal, both eyes and all related structures Neck: Other: supple Neck: Yes normal visual inspection Chest: Chest palpation & inspection: normal inspection of the chest Resp: Other: diffuse wheezing Cardio: Jugular venous distension: no JVD Rate: regular rate Rhythm: regular rhythm Heart sounds: S1 normal heart sound present and S2 normal heart sound present GI: Inspection: Yes normal to inspection Palpation (GI): Soft to palpation, nontender and No hepatosplenomegaly present Auscultation: normal bowel sounds : General: Yes no CVA tenderness Back/Spine/Pelvis: Back: no CVA tenderness Skin: General skin exam: no rashes or lesions noted Neuro: General: oriented to person and patient oriented x3 Cranial nerves: Yes CN's II-XII intact bilaterally Motor exam (neuro): 5/5 motor strength present throughout Sensory Exam: No Sensory deficit (Neuro) Extrem: General: Yes normal to inspection Psych: Appearance: grossly normal Course Reevaluation(s) Reevaluation #1: breathing so much better, clear, O2 sat 98% will dc on prednisone Time: 13:46 Reevaluation #2: I spent 40 minutes of critical care, with interventions, assessments, speaking to patient, consultants, and family. Time: 13:46 Medications Administered Discontinued Medications Generic Name Dose Route Start Last Admin Trade Name Freq PRN Reason Stop Dose Admin Albuterol Sulfate 5 mg/ 0 mg 05/20/23 11:45 05/20/23 11:48 Albuterol/Ipratropium 3 ml INHALE 05/20/23 11:46 1 each ONCE ONE Administration Medical Decision Making Differential Diagnosis Differential Diagnoses: The differential diagnosis associated with the presentation includes (asthma, copd exacerbation, pneumonia, cardiac ischemia were all considered) Admission/Observation Consideration of admission/observation: Escalation of care including admission/observation considered (upon arrival patient was considered for admission) Consult Healthcare Provider respiratory was consulted and discussed Lab Data MDM Lab Attestation statement: I reviewed the patient's lab results. 05/20/23 11:45 05/20/23 11:45 Labs: Lab Results 05/20/23 05/20/23 05/20/23 Range/Units 11:38 11:44 11:45 WBC 9.1 (4.8-10.8) X10*3/uL RBC 5.09 (4.60-5.80) X10*6/uL Hgb 13.6 L (14.0-18.0) g/dl Hct 43.9 (42.0-52.0) % MCV 86.2 (80.0-98.0) fL MCH 26.7 L (27.0-33.0) pg MCHC 31.0 (31.0-36.0) g/dl RDW 13.2 (11.0-16.0) % Plt Count 328 (160-400) X10*3/uL MPV 8.3 L (9.4-12.4) fL Immature Gran % (Auto) 0.3 (0.0-0.4) % Neut % (Auto) 65.5 (45-73) % Lymph % (Auto) 18.7 L (20-40) % [place] % (Auto) 7.5 (2-11) % Eos % (Auto) 7.4 H (0-4) % Baso % (Auto) 0.6 (0-2) % Lymph # (Auto) 1.7 (1.2-4.9) X10*3/uL [place] # (Auto) 0.7 (0.1-1.2) X10*3/uL Eos # (Auto) 0.7 H (0.0-0.4) X10*3/uL Baso # (Auto) 0.1 (0.0-0.2) X10*3/uL Abs Immat Gran (auto) 0.03 (0.00-0.03) X10*3/uL Absolute Neuts (auto) 5.9 (2.0-8.3) x10*3/uL Absolute Nucleated RBC 0.000 (0.0-0.012) X10*3/uL Nucleated RBC % (auto) 0.0 (0.0-0.2) /100WBC Sodium 139 (135-145) mmol/L Potassium 4.0 (3.3-5.1) mmol/L Chloride 102 (96-108) mmol/L Carbon Dioxide 32 H (22-29) mmol/L Anion Gap 9 L (12-20) BUN 9 (9-16) mg/dL Creatinine 0.85 (0.5-1.4) mg/dL Estim Creat Clear Calc 93.4 Estimated GFR > 60 POC Glucose 164 H (60-115) mg/dL Random Glucose 168 H (60-115) mg/dL Calcium 9.6 (8.4-10.2) mg/dL Troponin I High Sens < 2.7 (<3.5-35.0) ng/L Influenza Type A (PCR) NEGATIVE (Negative) Influenza Type B (PCR) NEGATIVE (Negative) RSV RNA Qual (PCR) NEGATIVE (Negative) SARS-CoV-2 RNA (RT-PCR) NEGATIVE (Negative) Independent Interpretation I performed an independent interpretation of an: EKG (sinus [address] or twave changes) and Plain X-Ray (no infiltrate) Independent Historian Clinical information obtained from an independent historian. History obtained from or confirmed by: EMS Prescription Management I considered prescription management with: Antibiotic (no evidence of infection clinially, xray showed no infiltrate) Chronic Conditions Patient?s care impacted by: Other (asthma) Discharge Plan Discharge Clinical Impression: Asthma, Asthma with exacerbation Patient Disposition: Home, Self-Care Instructions: Asthma (ED) Prescriptions: New prednisone 20 mg tablet 60 mg PO DAILY Qty: 12 0RF No Action montelukast 10 mg tablet 1 tab PO QPM albuterol sulfate 90 mcg/actuation HFA aerosol inhaler 2 puff PO Q4-6H PRN (Reason: Wheezing) Flovent HFA 110 mcg/actuation HFA aerosol inhaler 2 puff inhalation BID bupropion HCl [Wellbutrin XL] 150 mg tablet extended release 24 hr 1 tab PO QAM methadone 10 mg/5 mL Solution 10 mg PO DAILY quetiapine 25 mg tablet 25 mg PO BEDTIME PRN furosemide 40 mg tablet 40 mg PO QAM 30 Days Qty: 30 0RF lisinopril 30 mg tablet 30 mg PO DAILY Farxiga 10 mg tablet 10 mg PO QAM betamethasone dipropionate 0.05 % ointment 1 appl topical BID Qty: 15 0RF Rx Instructions: Thin coat 2 times per day Referrals: Physician,Nonstaff [Physician] - 5 days
[2023-05-20 11:06] VITALS: BP 123/59; BP 158/72; PULSE 73; RESP 10; O2SAT 98; O2SAT 99; BMI 35.8
--- NOTE | 2023-05-20 11:06 | ECG_ITS ---
Test Reason : DYSPNEA Blood Pressure : / mmHG Vent. Rate : 088 BPM Atrial Rate : 088 BPM P-R Int : 128 ms QRS Dur : 082 ms QT Int : 400 ms P-R-T Axes : 052 024 014 degrees QTc Int : 484 ms Normal sinus rhythm with sinus arrhythmia Prolonged QT Nonspecific T wave abnormality Low voltage QRS Abnormal ECG When compared with ECG of 09-MAR-2022 13:17, No significant change was found Referred By: Floyd Zhao Electronically Signed By:KENYA LÓPEZ MD
[2023-05-20] MEDS: Albuterol Sulfate 5 MG, Albuterol/Iprat 2.5/0.5MG 3 ML 3 ML INHALE (11:48)
[2023-05-20 11:50] LABS: Glucose, Whole Blood 164 mg/dL (60-115)
[2023-05-20 11:51] VITALS: PULSE 78; RESP 18; O2SAT 93
[2023-05-20 11:53] LABS: MANUAL DIFF FLAG NO
[2023-05-20 11:59] LABS: Basophils Absolute Auto 0.1 X10*3/uL (0.0-0.2); Basophils Percent Auto 0.6 % (0-2); Eosinophils Absolute Auto 0.7 X10*3/uL (0.0-0.4); Eosinophils Percent Auto 7.4 % (0-4); Hematocrit 43.9 % (42.0-52.0); Hemoglobin 13.6 g/dl (14.0-18.0); Imm Gran Abs Auto 0.03 X10*3/uL (0.00-0.03); Imm Gran Pct Auto 0.3 % (0.0-0.4); Lymphocytes Absolute Auto 1.7 X10*3/uL (1.2-4.9); Lymphocytes Percent Auto 18.7 % (20-40); Mean Corpuscular Hemoglobin 26.7 pg (27.0-33.0); Mean Corpuscular Volume 86.2 fL (80.0-98.0); Mean Platelet Volume 8.3 fL (9.4-12.4); Monocytes Absolute Auto 0.7 X10*3/uL (0.1-1.2); Monocytes Percent Auto 7.5 % (2-11); Neutrophils Absolute Auto 5.9 x10*3/uL (2.0-8.3); Neutrophils Percent Auto 65.5 % (45-73); Platelet Count 328 X10*3/uL (160-400); Red Blood Count 5.09 X10*6/uL (4.60-5.80); Red Cell Distribution Width 13.2 % (11.0-16.0); White Blood Count 9.1 X10*3/uL (4.8-10.8)
[2023-05-20 12:08] LABS: Anion Gap 9 (12-20); Blood Urea Nitrogen 9 mg/dL (9-16); Calcium 9.6 mg/dL (8.4-10.2); Carbon Dioxide 32 mmol/L (22-29); Chloride 102 mmol/L (96-108); Creatinine Clr Calc Pharmacy 93.4; Estimated Glomerular Filt Rate > 60; Glucose Random 168 mg/dL (60-115); Sodium 139 mmol/L (135-145)
[2023-05-20 12:19] LABS: Troponin-I High Sensitivity < 2.7 ng/L (<3.5-35.0)
[2023-05-20 12:41] LABS: Influenza A PCR NEGATIVE (Negative); Influenza B PCR NEGATIVE (Negative); Resp Syncy Virus RNA Qual PCR NEGATIVE (Negative); SARS COV2 PCR INHOUSE NEGATIVE (Negative)
== END 2023-05-20 14:25 | disposition home or self-care (01) ==
PROVIDERS: Emergency Provider Emergency Medicine; PCP Student in an Organized Health Care Education/Training Program
DX: J45.901 Unspecified asthma with (acute) exacerbation (principal); Z20.822 Contact with and (suspected) exposure to COVID-19; Z20.828 Contact with and (suspected) exposure to other viral communicable diseases; R06.02 Shortness of breath; I10 Essential (primary) hypertension; F11.20 Opioid dependence, uncomplicated; Z79.899 Other long term (current) drug therapy
CPT/HCPCS: 0241U; 71045; 80048; 82947; 84484; 85025; 93005; 94640; 99284

== ENCOUNTER 2023-06-05 12:33 | Outpatient (REF) | payer OTHER, SELFPAY ==
--- NOTE | ~2023-06-05 | US_ITS ---
EXAMINATION: US RETROPERITONEAL LIMITED (RENAL ONLY) CLINICAL INFORMATION: Renal cyst. COMPARISON: CT abdomen and pelvis without contrast 01/09/2020. TECHNIQUE: Real-time imaging of the kidneys. FINDINGS: RIGHT KIDNEY: 9.8 x 4.8 x 5.5 cm (SAG x AP x TRV). The kidney is normal in size, contour, and echogenicity. Renal cortical thickness is normal. No calculi or focal parenchymal lesions. No hydronephrosis. LEFT KIDNEY: 10.8 x 5.0 x 5.7 cm (SAG x AP x TRV). The kidney is normal in size, contour, and echogenicity. Renal cortical thickness is normal. No renal calculi or hydronephrosis. Benign-appearing renal cyst measuring 2.4 cm. No follow up imaging is recommended. US/US renal BI IMPRESSION: Benign-appearing left renal cyst measuring 2.4 cm, no follow up imaging is recommended.
== END 2023-06-05 12:34 | disposition home or self-care (01) ==
LOC: HO.US 12:33
PROVIDERS: PCP Student in an Organized Health Care Education/Training Program; Visit Provider Student in an Organized Health Care Education/Training Program
DX: N28.1 Cyst of kidney, acquired (principal)
CPT/HCPCS: 76775

== ENCOUNTER 2023-06-10 09:31 | Outpatient (AMB) | payer OTHER, SELFPAY ==
[2023-06-10 10:28] VITALS: BP 130/82; PULSE 74; O2SAT 94; BMI 34.0
--- NOTE | 2023-06-10 10:28 | MHC.OFFVIS ---
Intake Vital Signs 06/10/23 10:28 Height 5 ft 4 in Weight 198 lb BMI 34.0 BP 130/82 Blood Pressure Location Lt brachial Position Sitting Pulse 74 Pulse Source Pulse Oximeter Pulse Oximetry (%) 94 Oxygen Delivery Method Room Air Intake Visit Reasons: Asthma Intake Note: pt is here for follow up and is sounding very wheezy.,pt started the use of cpap, states he is getting very dry in his mouth. pt was fit for Resmed F20 full face mask, medium. pt would like the heated tubing shut off, he rather cold air. Charter Coach Driver Required: No Allergies No Known Allergies [No Known Allergies*] Allergy (Verified 06/10/23 11:06) Medication List - Last Reconciled 06/10/23 by Marie Rico MD albuterol sulfate 90 mcg/actuation 2 puffs PO Q4-6H PRN betamethasone dipropionate 0.05% 1 appl topical BID bupropion HCl (Wellbutrin XL) 1 tab PO QAM dapagliflozin propanediol (Farxiga) 10 mg PO QAM fluticasone propion-salmeterol 250-50 mcg/dose (Advair Diskus) 1 inh inhalation BID furosemide 40 mg PO QAM 30 days lisinopril 30 mg PO DAILY methadone 10 mg PO DAILY montelukast 1 tab PO QPM quetiapine 25 mg PO BEDTIME PRN Do you need a note to return to daycare/school/sports/work: No HPI Asthma HPI Details This gentleman is here for follow-up for his bronchial asthma/copd and obstructive sleep apt. He is using CPAP regularly, and sleeps much better. He say is after starting to use the CPAP for the 1st time he slept 6 hours at night. He is waking up more refreshed and denies daytime sleepiness. He has lost 10 lb of weight in the last 3 months. Breathing flood he continues to periods of wheezing when he walks outdoors, he gets somewhat panicky, and ends up using ProAir bout 3 times a day. He tends to use ProAir, more to alleviate his anxiety. He does have wheezing brought on by exertion. [facility] Medical History Somnolence, daytime Obesity (BMI 30-39.9) Hx of substance abuse Pancreatitis Depression HTN (hypertension) Asthma Surgical History History of mandibular surgery History of ERCP Hx of cholecystectomy Social History Alcohol intake: never Patient Tobacco Use Status: Never used Tobacco Substance Use Type: Heroin Review of Systems Const All systems reviewed & are unremarkable except as noted in HPI and below Eyes Reports no additional complaints ENT Reports nasal congestion (mild off and on ) Card Denies chest pain, Denies irregular heart rhythm and Denies leg edema Resp Reports as per HPI GI Reports no additional complaints Reports no additional complaints Musc Reports back pain Skin/Breast Reports system reviewed and no additional complaints, except as documented Neuro Reports no additional complaints Psych Reports anxiety Endo Reports other (hyperglycemia ) Aller/Immun Reports no additional complaints Physical Exam Vital Signs: Last Vital Signs Pulse 74 06/10/23 10:28 BP 130/82 06/10/23 10:28 Pulse Ox 94 06/10/23 10:28 Oxygen Delivery Method Room Air 06/10/23 10:28 BMI result Body Mass Index 34.0 Const Other: Grossly overweight with a round face. General: comfortable, no acute distress, alert and awake Orientation/consciousness: patient oriented x3 HEENT Head: Yes normal to inspection General nose exam: No nasal polyps present and No nasal discharge present Face and sinus: Yes sinuses nontender Mouth: oropharynx abnormals (Tongue is placed back oropharynx is narrow, Mallampati scale 4) Throat: Yes posterior oropharynx normal Eyes General: appearance normal, both eyes and all related structures Neck Neck: Yes normal visual inspection, Yes no lymphadenopathy, Yes trachea midline, Yes no JVD and Yes other (Neck circumference 17 in) Thyroid: Thyroid normal Chest Chest palpation & inspection: normal inspection of the chest, normal palpation of entire chest wall and no tenderness Resp Other: Percussion note is resonant, breath sounds are distant, There are scattered inspiratory wheezes , in both upper lobe areas. Cardio Palpation: PMI not normal (PMI not palpable) Rate: regular rate Rhythm: regular rhythm Heart sounds: no gallops and no murmurs GI Palpation (GI): Soft to palpation, nontender, No hepatosplenomegaly present, no masses and Other GI palpation findings present (Abdomen is moderately obese and protuberant) Auscultation: normal bowel sounds Back/Spine/Pelvis Thoracic/Lumbar Spine: thoracic and lumbar spine normal to inspection and thoraco-lumbar ROM limited Skin General skin exam: no rashes or lesions noted Neuro General: patient oriented x3 and no focal motor deficits Cranial nerves: Yes CN's II-XII intact bilaterally Extrem General: Yes normal to inspection, Yes no clubbing, cyanosis or edema, Yes no calf tenderness and Yes venous stasis dermatitis (Mild over the lower parts of the legs) Psych Appearance: grossly normal and well kempt Speech and movement: Normal speech and movement present Results Reviewed Results Reviewed: Compliance report is reviewed. HE HAS USED 30/30 NIGHTS, 100%. AVERAGE USE PER NIGHT 3 HOURS 35 MINUTES. PRESSURE USED 12-13 CM, THERE IS SOME AIR LEAK. RESIDUAL AHI IS STILL 15/HR Assessment & Plan Assessment & Plan (1) Obesity (BMI 30-39.9): Comment: The patient is moderately obese with a round face and short/obese neck. He has lost some weight, 10 LBs . Code(s): E66.9 - Obesity, unspecified Plan: Commended for losing weight and encouraged to keep on losing more weight. His medical regimen for diabetes mellitus includes Faxiga and this will help him to lose more weight. (2) MALATHI (obstructive sleep apnea): Comment: Patient has confirmed diagnosis of obstructive sleep apnea. He is using CPAP regularly, but his average usage is still less than 4 hours per night. Has a result he still has some residual sleep apnea. Subjectively he feels much better. Code(s): G47.33 - Obstructive sleep apnea (adult) (pediatric) Plan: We gave him a fullface mask from the office to use, . Which will fit him better Gave him instructions to use the CPAP properly. Advised to use the humidification regularly. (3) Asthma: Comment: SYMPTOMS ARE SUGGESTIVE OF BRONCHIAL ASTHMA, CHRONIC INTERMITTENT. PULMONARY FUNCTION TEST SHOWS MILD RESTRICTIVE WELL MILD TO MODERATE OBSTRUCTIVE AIRWAY DISORDER. HE CONTINUES TO HAVE EXPIRATORY SOME WHEEZES . AND I THINK IT IS MORE DUE TO HIS UPPER AIRWAY DYSFUNCTION. Code(s): J45.909 - Unspecified asthma, uncomplicated Plan: TX : ADVAIR 250-50 1 INHALATION B.I.D.. MONTELUKAST 10 MG DAILY. ALBUTEROL HFA ( pROAIR )2 PUFFS Q 4-6 HOURS P.R.N., HE IS ADVISED THAT HE SHOULD NOT USE ALBUTEROL EXCESSIVELY. Coding Level of Care Code Est Pt Level 3 (47567) Diagnoses Obesity (BMI 30-39.9) E66.9 AMLATHI (obstructive sleep apnea) G47.33 Asthma J45.909
== END 2023-06-10 11:05 | disposition home or self-care (01) ==
PROVIDERS: PCP Registered Nurse; Visit Provider Internal Medicine
DX: E66.9 Obesity, unspecified (principal); G47.33 Obstructive sleep apnea (adult) (pediatric); J45.909 Unspecified asthma, uncomplicated
CPT/HCPCS: 99213

== ENCOUNTER → 2023-06-10 09:31 | Outpatient (BNVA) | payer OTHER, SELFPAY | PROVIDERS: PCP Registered Nurse; Visit Provider Internal Medicine | DX: G47.33 Obstructive sleep apnea (adult) (pediatric) (principal); J45.909 Unspecified asthma, uncomplicated; E66.9 Obesity, unspecified; Z68.34 Body mass index [BMI] 34.0-34.9, adult | CPT/HCPCS: 99212 ==

== ENCOUNTER 2023-08-01 14:28 | Outpatient (AMB) | payer OTHER, SELFPAY ==
[2023-08-01 14:58] VITALS: BP 110/70; PULSE 70; O2SAT 95; BMI 33.3
--- NOTE | 2023-08-01 14:58 | MHC.OFFVIS ---
Intake Vital Signs 08/01/23 14:58 Height 5 ft 4 in Weight 194 lb BMI 33.3 BP 110/70 Blood Pressure Location Lt brachial Position Sitting Pulse 70 Pulse Source Pulse Oximeter Pulse Oximetry (%) 95 Oxygen Delivery Method Room Air Intake Visit Reasons: overuse of inhalers Intake Note: pt is here per request of pcp who states albuterol being used too much, and o2 sats were low in the office in the . have been on trelegy for about a month, multiple uses of albuterol in the day, tight in chest , wheezy and phelgm stuck in the chest. Retail Team Leader Required: No Allergies No Known Allergies [No Known Allergies*] Allergy (Verified 08/01/23 15:28) Medication List - Last Reconciled 08/01/23 by Marie Rico MD albuterol sulfate 90 mcg/actuation 2 puffs PO Q4-6H PRN atorvastatin 10 mg PO DAILY baclofen 10 mg PO TID betamethasone dipropionate 0.05% 1 appl topical BID bupropion HCl (Wellbutrin XL) 300 mg PO QAM dapagliflozin propanediol (Farxiga) 10 mg PO QAM awupwmaooko-lnaofhobt-gaghalhz 200-62.5-25 mcg (Trelegy Ellipta) 1 inh inhalation DAILY furosemide 40 mg PO QAM 30 days ipratropium-albuterol 0.5 mg-3 mg(2.5 mg base)/3 mL mL inhalation methadone 10 mg PO DAILY montelukast 1 tab PO QPM quetiapine 25 mg PO BEDTIME PRN Do you need a note to return to daycare/school/sports/work: No HPI overuse of inhalers HPI Details This 62 years old gentleman is here for follow-up for ASTHMA/COPD and obstructive sleep apnea Since his last visit over here he has been seeing his PCP for increased cough and wheezing. His medical regimen has been increased to Trelegy Ellipta , 1 inhalation daily He is also on DuoNeb updrafts which he can use Q 6 hours p.r.n. On top of that he also has been using albuterol HFA . Quite frequently It happens mostly at night, that he hears himself wheezing . At night he does use the CPAP regularly but only for 4 hours Even after using 4 hours per night his sleep is definitely improved. [facility] Medical History Somnolence, daytime Obesity (BMI 30-39.9) Hx of substance abuse Pancreatitis Depression HTN (hypertension) Asthma Surgical History History of mandibular surgery History of ERCP Hx of cholecystectomy Social History Alcohol intake: never Patient Tobacco Use Status: Never used Tobacco Substance Use Type: Heroin Review of Systems Const All systems reviewed & are unremarkable except as noted in HPI and below Eyes Reports no additional complaints ENT Reports nasal congestion (mild off and on ) Card Denies chest pain, Denies irregular heart rhythm and Denies leg edema Resp Reports as per HPI GI Reports no additional complaints Reports no additional complaints Musc Reports back pain Skin/Breast Reports system reviewed and no additional complaints, except as documented Neuro Reports no additional complaints Psych Reports anxiety Endo Reports other (hyperglycemia ) Aller/Immun Reports no additional complaints Physical Exam Vital Signs: Last Vital Signs Pulse 70 08/01/23 14:58 BP 110/70 08/01/23 14:58 Pulse Ox 95 08/01/23 14:58 Oxygen Delivery Method Room Air 08/01/23 14:58 BMI result Body Mass Index 33.3 Const Other: Grossly overweight with a round face. General: comfortable, no acute distress, alert and awake Orientation/consciousness: patient oriented x3 HEENT Head: Yes normal to inspection General nose exam: No nasal polyps present and No nasal discharge present Face and sinus: Yes sinuses nontender Mouth: oropharynx abnormals (Tongue is placed back oropharynx is narrow, Mallampati scale 4) Throat: Yes posterior oropharynx normal Eyes General: appearance normal, both eyes and all related structures Neck Neck: Yes normal visual inspection, Yes no lymphadenopathy, Yes trachea midline, Yes no JVD and Yes other (Neck circumference 17 in) Thyroid: Thyroid normal Chest Chest palpation & inspection: normal inspection of the chest, normal palpation of entire chest wall and no tenderness Resp Other: Percussion note is resonant, breath sounds are distant, He does has inspiratory and expiratory wheezes on both sides. Cardio Palpation: PMI not normal (PMI not palpable) Rate: regular rate Rhythm: regular rhythm Heart sounds: no gallops and no murmurs GI Palpation (GI): Soft to palpation, nontender, No hepatosplenomegaly present, no masses and Other GI palpation findings present (Abdomen is moderately obese and protuberant) Auscultation: normal bowel sounds Back/Spine/Pelvis Thoracic/Lumbar Spine: thoracic and lumbar spine normal to inspection and thoraco-lumbar ROM limited Skin General skin exam: no rashes or lesions noted Neuro General: patient oriented x3 and no focal motor deficits Cranial nerves: Yes CN's II-XII intact bilaterally Extrem General: Yes normal to inspection, Yes no clubbing, cyanosis or edema, Yes no calf tenderness and Yes venous stasis dermatitis (Mild over the lower parts of the legs) Psych Appearance: grossly normal and well kempt Speech and movement: Normal speech and movement present Results Reviewed Results Reviewed: Compliance report is reviewed. He has used 29/30 nights, 97%. Average use it per night 4 hours 16 minutes. Pressure used mostly 13-14 cm. There is not much air leak. Residual AHI is still 12.2 Assessment & Plan Assessment & Plan (1) Asthma: Comment: SYMPTOMS ARE SUGGESTIVE OF BRONCHIAL ASTHMA, CHRONIC INTERMITTENT. PULMONARY FUNCTION TEST SHOWS MILD RESTRICTIVE WELL MILD TO MODERATE OBSTRUCTIVE AIRWAY DISORDER. HE CONTINUES TO HAVE EXPIRATORY WHEEZES . I SUSPECT THAT HE HAS UPPER AIRWAY DYSFUNCTION. Code(s): J45.909 - Unspecified asthma, uncomplicated Plan: HE HAD BEEN STARTED ON TRELEGY ELLIPTA 1 INHALATION DAILY. I ADVISED HIM TO USE IPRATROPIUM/ALBUTEROL SOLUTION IN THE NEBULIZER Q 6 HOURS, P.R.N. . NOT MORE THAN 4 TIMES A DAY I ADVISED HIM NOT TO USE ALBUTEROL INHALER WHILE USING THE NEBULIZER. MUCINEX 600 MG B.I.D. IS ADDED, TO FACILITATE HIS CLEARANCE OF MUCUS. *IF HE CONTINUES TO HAVE PERSISTENT WHEEZING THEN HE WOULD NEED BRONCHOSCOPY TO CHECK HIS AIRWAYS (2) MALATHI (obstructive sleep apnea): Comment: Patient has confirmed diagnosis of obstructive sleep apnea. He is using CPAP regularly, and his average usage is more than 4 hours per night. He claims that he is sleeping better and wakes up more refreshed. However he still has some residual obstructive sleep apnea with residual AHI 12.2. I Code(s): G47.33 - Obstructive sleep apnea (adult) (pediatric) Plan: I have advised him that he should use the CPAP at least for 6 hours every night. (3) Obesity (BMI 30-39.9): Comment: The patient is moderately obese with a round face and short/obese neck. He has lost some weight, Code(s): E66.9 - Obesity, unspecified Plan: Encouraged to keep on losing more weight. Medications: New guaifenesin ER (Mucinex) 600 mg PO BID 30 days 60 tabs 2RF chronic bronchitis Coding Level of Care Code Est Pt Level 3 (77101) Diagnoses Asthma J45.909 MALATHI (obstructive sleep apnea) G47.33 Obesity (BMI 30-39.9) E66.9
== END 2023-08-01 15:31 | disposition home or self-care (01) ==
PROVIDERS: PCP Registered Nurse; Visit Provider Internal Medicine
DX: J45.909 Unspecified asthma, uncomplicated (principal); G47.33 Obstructive sleep apnea (adult) (pediatric); E66.9 Obesity, unspecified
CPT/HCPCS: 99213

== ENCOUNTER → 2023-08-01 14:28 | Outpatient (BNVA) | payer OTHER, SELFPAY | PROVIDERS: PCP Registered Nurse; Visit Provider Internal Medicine | DX: J45.909 Unspecified asthma, uncomplicated (principal); G47.33 Obstructive sleep apnea (adult) (pediatric); E66.9 Obesity, unspecified; Z68.33 Body mass index [BMI] 33.0-33.9, adult | CPT/HCPCS: 99212 ==

== ENCOUNTER 2023-09-23 14:30 | Outpatient (AMB) | payer OTHER, SELFPAY ==
[2023-09-23 14:41] VITALS: BP 140/74; PULSE 70; O2SAT 97; BMI 34.6
--- NOTE | 2023-09-23 14:41 | A.OFFVIS_ITS ---
Intake Vital Signs 09/23/23 14:41 Height 5 ft 4 in Weight 201 lb 11.567 oz BMI 34.6 BP 140/74 H Blood Pressure Location Lt brachial Position Sitting Pulse 70 Pulse Source Pulse Oximeter Pulse Oximetry (%) 97 Oxygen Delivery Method Room Air Intake Visit Reasons: Obstructive sleep apnea follow-up Intake Note: pt is here for follow up and states he had a in the family and that is why low usage on c-pap, he states feel wheeze little better. Croze Machine Operator Required: No Allergies No Known Allergies [No Known Allergies*] Allergy (Verified 09/23/23 15:09) Medication List - Last Reconciled 09/23/23 by Marie Rico MD albuterol sulfate 90 mcg/actuation 2 puffs PO Q4-6H PRN atorvastatin 10 mg PO DAILY baclofen 10 mg PO TID betamethasone dipropionate 0.05% 1 appl topical BID bupropion HCl (Wellbutrin XL) 300 mg PO QAM dapagliflozin propanediol (Farxiga) 10 mg PO QAM dmpktcdsjai-gvpruqgeb-zssirkmd 200-62.5-25 mcg (Trelegy Ellipta) 1 inh inhalation DAILY furosemide 40 mg PO QAM 30 days guaifenesin ER (Mucinex) 600 mg PO BID 30 days ipratropium-albuterol 0.5 mg-3 mg(2.5 mg base)/3 mL mL inhalation methadone 10 mg PO DAILY montelukast 1 tab PO QPM quetiapine 25 mg PO BEDTIME PRN Do you need a note to return to daycare/school/sports/work: No HPI Obstructive sleep apnea follow-up HPI Details This 63 years old gentleman is of his simple mind, He claims that he did not know that he has to use CPAP, regularly. States there was a in the family and he was in an out of the house and, many nights he did not have a chance to put on the CPAP. His breathing is better and he has much less cough or wheezing. In the she to Trelegy Ellipta once a day. He is using albuterol HFA only a few times during the week. [facility] Medical History Somnolence, daytime Obesity (BMI 30-39.9) Hx of substance abuse Pancreatitis Depression HTN (hypertension) Asthma Surgical History History of mandibular surgery History of ERCP Hx of cholecystectomy Social History Alcohol intake: never Patient Tobacco Use Status: Never used Tobacco Substance Use Type: Heroin Review of Systems Const All systems reviewed & are unremarkable except as noted in HPI and below Eyes Reports no additional complaints ENT Reports nasal congestion (mild off and on ) Card Denies chest pain, Denies irregular heart rhythm and Denies leg edema Resp Reports as per HPI GI Reports no additional complaints Reports no additional complaints Musc Reports back pain Skin/Breast Reports system reviewed and no additional complaints, except as documented Neuro Reports no additional complaints Psych Reports anxiety Endo Reports other (hyperglycemia ) Aller/Immun Reports no additional complaints Physical Exam Vital Signs: Last Vital Signs Pulse 70 09/23/23 14:41 BP 140/74 H 09/23/23 14:41 Pulse Ox 97 09/23/23 14:41 Oxygen Delivery Method Room Air 09/23/23 14:41 BMI result Body Mass Index 34.6 Const Other: Grossly overweight with a round face. General: comfortable, no acute distress, alert and awake Orientation/consciousness: patient oriented x3 HEENT Head: Yes normal to inspection General nose exam: No nasal polyps present and No nasal discharge present Face and sinus: Yes sinuses nontender Mouth: oropharynx abnormals (Tongue is placed back oropharynx is narrow, Mallampati scale 4) Throat: Yes posterior oropharynx normal Eyes General: appearance normal, both eyes and all related structures Neck Neck: Yes normal visual inspection, Yes no lymphadenopathy, Yes trachea midline, Yes no JVD and Yes other (Neck circumference 17 in) Thyroid: Thyroid normal Chest Chest palpation & inspection: normal inspection of the chest, normal palpation of entire chest wall and no tenderness Resp Other: Percussion note is resonant, breath sounds are distant, Today he has only a few expiratory wheezes over the upper parts of the chest. No crepitations. Cardio Palpation: PMI not normal (PMI not palpable) Rate: regular rate Rhythm: regular rhythm Heart sounds: no gallops and no murmurs GI Palpation (GI): Soft to palpation, nontender, No hepatosplenomegaly present, no masses and Other GI palpation findings present (Abdomen is moderately obese and protuberant) Auscultation: normal bowel sounds Back/Spine/Pelvis Thoracic/Lumbar Spine: thoracic and lumbar spine normal to inspection and thoraco-lumbar ROM limited Skin General skin exam: no rashes or lesions noted Neuro General: patient oriented x3 and no focal motor deficits Cranial nerves: Yes CN's II-XII intact bilaterally Extrem General: Yes normal to inspection, Yes no clubbing, cyanosis or edema, Yes no calf tenderness and Yes venous stasis dermatitis (Mild over the lower parts of the legs) Psych Appearance: grossly normal and well kempt Speech and movement: Normal speech and movement present Results Reviewed Results Reviewed: Compliance report from 08/11/2023 07/27/2017 24, is reviewed. He has used 11/30 nights, 37%. And average usage per night 2 hours 18 minute. His residual AHI is 8.2 Assessment & Plan Assessment & Plan (1) Asthma: Comment: SYMPTOMS ARE SUGGESTIVE OF BRONCHIAL ASTHMA, CHRONIC INTERMITTENT. PULMONARY FUNCTION TEST SHOWS MILD RESTRICTIVE WELL MILD TO MODERATE OBSTRUCTIVE AIRWAY DISORDER. HE CONTINUES TO HAVE EXPIRATORY WHEEZES . BUT DEFINITELY MUCH LESS THAN BEFORE. Code(s): J45.909 - Unspecified asthma, uncomplicated Plan: CONTINUE TRELEGY ELLIPTA 1 INHALATION DAILY USE ALBUTEROL HFA 2 PUFFS Q 4-6 HOURS ONLY P.R.N. (2) MALATHI (obstructive sleep apnea): Comment: Patient has confirmed diagnosis of obstructive sleep apnea. He is using CPAP but not regularly regularly,. He states that because of a in the family he had to go back on forth , and did not have a chance to use the CPAP every night. Now that we have explained to him the importance of compliance, he promises that he is going to use it more regularly. He admits that he is sleeping better and wakes up more refreshed, when he uses the CPAP. Code(s): G47.33 - Obstructive sleep apnea (adult) (pediatric) Plan: Educated and advised to use the CPAP every night. And will recheck him in a month. (3) Obesity (BMI 30-39.9): Comment: The patient is moderately obese with a round face and short/obese neck. He has lost some weight, Code(s): E66.9 - Obesity, unspecified Plan: Educated and encouraged to cut down the calories intake and try to lose some weight. Coding Level of Care Code Est Pt Level 3 (93266) Diagnoses Asthma J45.909 MALATHI (obstructive sleep apnea) G47.33 Obesity (BMI 30-39.9) E66.9
== END 2023-09-23 15:09 | disposition home or self-care (01) ==
PROVIDERS: PCP Registered Nurse; Visit Provider Internal Medicine
DX: J45.909 Unspecified asthma, uncomplicated (principal); G47.33 Obstructive sleep apnea (adult) (pediatric); E66.9 Obesity, unspecified
CPT/HCPCS: 99213

== ENCOUNTER → 2023-09-23 14:30 | Outpatient (BNVA) | payer OTHER, SELFPAY | PROVIDERS: PCP Registered Nurse; Visit Provider Internal Medicine | DX: G47.33 Obstructive sleep apnea (adult) (pediatric) (principal); E66.9 Obesity, unspecified; J45.909 Unspecified asthma, uncomplicated; Z99.89 Dependence on other enabling machines and devices | CPT/HCPCS: 99212 ==

== ENCOUNTER 2023-10-28 13:48 | Outpatient (AMB) | payer OTHER, SELFPAY ==
--- NOTE | 2023-10-28 14:01 | A.OFFVIS_ITS ---
Vital Signs 10/28/23 14:02 Height 5 ft 4 in Weight 200 lb 9.93 oz BMI 34.4 BP 142/82 H Blood Pressure Location Lt brachial Position Sitting Pulse 99 Pulse Source Pulse Oximeter Pulse Oximetry (%) 97 Oxygen Delivery Method Room Air Intake Visit Reasons: Obstructive sleep apnea Intake Note: pt is here for follow up and is under a lot of stress with his life partner and dementia and he has not been using the machine. Collar Trimmer Required: No Allergies No Known Allergies [No Known Allergies*] Allergy (Verified 10/28/23 14:18) Medication List - Last Reconciled 10/28/23 by Marie Rico MD albuterol sulfate 90 mcg/actuation 2 puffs PO Q4-6H PRN atorvastatin 10 mg PO DAILY baclofen 10 mg PO TID betamethasone dipropionate 0.05% 1 appl topical BID bupropion HCl XL (Wellbutrin XL) 300 mg PO QAM dapagliflozin propanediol (Farxiga) 10 mg PO QAM kvezuhvozjd-xwpvvvcex-okhblgnf 200-62.5-25 mcg (Trelegy Ellipta) 1 inh inhalation DAILY furosemide 40 mg PO QAM 30 days guaifenesin ER (Mucinex) 600 mg PO BID 30 days ipratropium-albuterol 0.5 mg-3 mg(2.5 mg base)/3 mL mL inhalation methadone 10 mg PO DAILY montelukast 1 tab PO QPM quetiapine 25 mg PO BEDTIME PRN Do you need a note to return to daycare/school/sports/work: No HPI HPI Obstructive sleep apnea: Details: 63 YEARS OLD GENTLEMAN WITH MODERATE OBESITY AND DIAGNOSIS OF OBSTRUCTIVE SLEEP APNEA WELL COPD, COMES FOR FOLLOW-UP AFTER 1 MONTH . HIS VISIT TODAY WAS MAINLY TO SEE IF HE STARTS USING CPAP WITH ACCEPTABLE COMPLIANCE ARE NOT. PATIENT STATES THAT HE HAS NOT BEEN ABLE TO USE THE CPAP. EXCEPT THAT HE TRIED JUST FOR 1 NIGHT AND COULD NOT KEEP THE MASK ON HIS FACE. HIS SLEEP IS SOMEWHAT FRAGMENTED AND HE HAS MILD FATIGUE DURING THE DAYTIME. BREATHING IS FAIRLY WELL CONTROLLED WITH THE USE OF CURRENT INHALERS. NASAL CONGESTION IS ALSO UNDER GOOD CONTROL. [facility] Medical History (Updated 10/28/23 @ 14:26 by Marie Rico MD) Asthma with COPD (chronic obstructive pulmonary disease) Somnolence, daytime Obesity (BMI 30-39.9) Hx of substance abuse Pancreatitis Depression HTN (hypertension) Asthma Surgical History History of mandibular surgery History of ERCP Hx of cholecystectomy Social History Alcohol intake: never Patient Tobacco Use Status: Never used Tobacco Substance Use Type: Heroin Review of Systems Const All systems reviewed & are unremarkable except as noted in HPI and below Eyes Reports no additional complaints ENT Reports nasal congestion (mild off and on ) Card Denies chest pain, Denies irregular heart rhythm and Denies leg edema Resp Reports as per HPI GI Reports no additional complaints Reports no additional complaints Musc Reports back pain Skin/Breast Reports system reviewed and no additional complaints, except as documented Neuro Reports no additional complaints Psych Reports anxiety Endo Reports other (hyperglycemia ) Aller/Immun Reports no additional complaints Physical Exam Const Other: Grossly overweight with a round face. General: comfortable, no acute distress, alert and awake Orientation/consciousness: patient oriented x3 HEENT Head: Yes normal to inspection General nose exam: No nasal polyps present and No nasal discharge present Face and sinus: Yes sinuses nontender Mouth: oropharynx abnormals (Tongue is placed back oropharynx is narrow, Mallampati scale 4) Throat: Yes posterior oropharynx normal Eyes General: appearance normal, both eyes and all related structures Neck Neck: Yes normal visual inspection, Yes no lymphadenopathy, Yes trachea midline, Yes no JVD and Yes other (Neck circumference 17 in) Thyroid: Thyroid normal Chest Chest palpation & inspection: normal inspection of the chest, normal palpation of entire chest wall and no tenderness Resp Other: Percussion note is resonant, breath sounds are distant, Breath sounds are somewhat diminished over the basilar areas on both sides. However he does not have any wheezes or crepitations on auscultation. Cardio Palpation: PMI not normal (PMI not palpable) Rate: regular rate Rhythm: regular rhythm Heart sounds: no gallops and no murmurs GI Palpation (GI): Soft to palpation, nontender, No hepatosplenomegaly present, no masses and Other GI palpation findings present (Abdomen is moderately obese and protuberant) Auscultation: normal bowel sounds Back/Spine/Pelvis Thoracic/Lumbar Spine: thoracic and lumbar spine normal to inspection and thoraco-lumbar ROM limited Skin General skin exam: no rashes or lesions noted Neuro General: patient oriented x3 and no focal motor deficits Cranial nerves: Yes CN's II-XII intact bilaterally Extrem General: Yes normal to inspection, Yes no clubbing, cyanosis or edema, Yes no calf tenderness and Yes venous stasis dermatitis (Mild over the lower parts of the legs) Psych Appearance: grossly normal and well kempt Speech and movement: Normal speech and movement present Results Reviewed Results Reviewed: His compliance report for the last 30 nights shows that he used for only 1 night about 1 hour or so and has not used after that. Assessment & Plan Assessment & Plan (1) Obesity (BMI 30-39.9): Comment: The patient is moderately obese with a round face and short/obese neck. He has typical anatomical features for obstructive sleep apnea. Code(s): E66.9 - Obesity, unspecified Category: Medical Plan: Discussed with him the importance of losing weight. Even if he loses 10-15 lb of weight it would make a big difference. (2) MALATHI (obstructive sleep apnea): Comment: Patient has confirmed diagnosis of obstructive sleep apnea. CPAP therapy was prescribed with auto PAP mode . However he has remained totally non compliant, . In the last 2 months I had a good discussion with him, and my feeling is that he is not going to be able to use the CPAP. Code(s): G47.33 - Obstructive sleep apnea (adult) (pediatric) Category: Medical Plan: As his obstructive sleep apnea is mild with total sleep time AHI 8.6. I think if he could lose weight it can be taken care of. Weight reduction by 10% of his current weight ( about 20 lb ) may decrease his level of sleep apnea to less than 5 /hr. (3) Asthma with COPD (chronic obstructive pulmonary disease): Comment: His asthma/COPD is under good control with the current medications. Code(s): J44.89 - Other specified chronic obstructive pulmonary disease Category: Medical Plan: Continue Trelegy Ellipta 1 inhalation daily. Albuterol HFA 2 puffs. Q 4-6 hours p.r.n. Also continue to use montelukast 10 mg tablet daily He does have nebulizer at home with the ipratropium/albuterol solution but I really do not think he needs to use it. Coding Level of Care Code Est Pt Level 3 (99098) Diagnoses Obesity (BMI 30-39.9) E66.9 MALATHI (obstructive sleep apnea) G47.33 Asthma with COPD (chronic obstructive pulmonary disease) J44.89
[2023-10-28 14:02] VITALS: BP 142/82; PULSE 99; O2SAT 97; BMI 34.4
== END 2023-10-28 14:16 | disposition home or self-care (01) ==
PROVIDERS: PCP Registered Nurse; Visit Provider Internal Medicine
DX: E66.9 Obesity, unspecified (principal); G47.33 Obstructive sleep apnea (adult) (pediatric); J44.89 Other specified chronic obstructive pulmonary disease
CPT/HCPCS: 99213

== ENCOUNTER → 2023-10-28 13:48 | Outpatient (BNVA) | payer OTHER, SELFPAY | PROVIDERS: PCP Registered Nurse; Visit Provider Internal Medicine | DX: G47.33 Obstructive sleep apnea (adult) (pediatric) (principal); J44.89 Other specified chronic obstructive pulmonary disease; F03.90 Unspecified dementia, unspecified severity, without behavioral disturbance, psychotic disturbance, mood disturbance, and anxiety; E66.9 Obesity, unspecified; Z68.34 Body mass index [BMI] 34.0-34.9, adult | CPT/HCPCS: 99212 ==

== ENCOUNTER 2024-01-20 14:04 | Outpatient (AMB) | payer OTHER, SELFPAY ==
[2024-01-20 14:23] VITALS: BP 130/82; PULSE 75; O2SAT 95; BMI 34.6
--- NOTE | 2024-01-20 14:23 | MHC.OFFVIS ---
Vital Signs 01/20/24 14:23 Height 5 ft 4 in Weight 201 lb 11.567 oz BMI 34.6 BP 130/82 Blood Pressure Location Lt brachial Position Sitting Pulse 75 Pulse Source Pulse Oximeter Pulse Oximetry (%) 95 Oxygen Delivery Method Room Air Intake Visit Reasons: Obstructive sleep apnea Allergies No Known Allergies [No Known Allergies*] Allergy (Verified 01/20/24 14:40) Medication List - Last Reconciled 01/20/24 by Marie Rico MD albuterol sulfate 90 mcg/actuation 2 puffs PO Q4-6H PRN atorvastatin 10 mg PO DAILY baclofen 10 mg PO TID betamethasone dipropionate 0.05% 1 appl topical BID bupropion HCl XL (Wellbutrin XL) 300 mg PO QAM dapagliflozin propanediol (Farxiga) 10 mg PO QAM olrcdcaicrn-wtqmnxkce-xeuamspy 200-62.5-25 mcg (Trelegy Ellipta) 1 inh inhalation DAILY furosemide 40 mg PO QAM 30 days guaifenesin ER (Mucinex) 600 mg PO BID 30 days ipratropium-albuterol 0.5 mg-3 mg(2.5 mg base)/3 mL mL inhalation methadone 10 mg PO DAILY montelukast 1 tab PO QPM quetiapine 25 mg PO BEDTIME PRN Do you need a note to return to daycare/school/sports/work: No HPI HPI Obstructive sleep apnea: Details: THIS 63 YEARS OLD GENTLEMAN, IS HERE FOR FOLLOW-UP. HIS WEIGHT IS UNCHANGED AND HE CONTINUES TO BE MODERATELY OBESE. HE HAS A SHORT NECK AND ROUND FACE, TYPICAL FEATURES OF OBSTRUCTIVE SLEEP APNEA. HE HAS NOT BEEN ABLE TO USE THE CPAP. SO AT NIGHT HE MAKES SOME WHEEZY SOUND, HE CLAIMS THAT HIS GETS SCARED. SO HE ENDS UP USING ALBUTEROL INHALER QUITE OFTEN. DURING THE DAYTIME HE USES TRELEGY INHALER 1 SITTING . AND HE USES DUONEB UPDRAFTS 2 OR 3 TIMES A DAY. FOR THE ALBUTEROL INHALER , HE SAY IS THE GENERIC INHALER DOES NOT WORK IN HIS CASE. HE HAS BOUGHT OUT OF POCKET PROAIR FROM THE [facility] WHICH HE CLAIMS HELPS HIM BETTER. [facility] Medical History Asthma with COPD (chronic obstructive pulmonary disease) Somnolence, daytime Obesity (BMI 30-39.9) Hx of substance abuse Pancreatitis Depression HTN (hypertension) Asthma Surgical History History of mandibular surgery History of ERCP Hx of cholecystectomy Social History Alcohol intake: never Patient Tobacco Use Status: Never used Tobacco Substance Use Type: Heroin Review of Systems Const All systems reviewed & are unremarkable except as noted in HPI and below Eyes Reports no additional complaints ENT Reports nasal congestion (mild off and on ) Card Denies chest pain, Denies irregular heart rhythm and Denies leg edema Resp Reports as per HPI GI Reports no additional complaints Reports no additional complaints Musc Reports back pain Skin/Breast Reports system reviewed and no additional complaints, except as documented Neuro Reports no additional complaints Psych Reports anxiety Endo Reports other (hyperglycemia ) Aller/Immun Reports no additional complaints Physical Exam Vital Signs: Last Vital Signs Pulse 75 01/20/24 14:23 BP 130/82 01/20/24 14:23 Pulse Ox 95 01/20/24 14:23 Oxygen Delivery Method Room Air 01/20/24 14:23 BMI result Body Mass Index 34.6 Const Other: Grossly overweight with a round face. General: comfortable, no acute distress, alert and awake Orientation/consciousness: patient oriented x3 HEENT Head: Yes normal to inspection General nose exam: No nasal polyps present and No nasal discharge present Face and sinus: Yes sinuses nontender Mouth: oropharynx abnormals (Tongue is placed back oropharynx is narrow, Mallampati scale 4) Throat: Yes posterior oropharynx normal Eyes General: appearance normal, both eyes and all related structures Neck Neck: Yes normal visual inspection, Yes no lymphadenopathy, Yes trachea midline, Yes no JVD and Yes other (Neck circumference 17 in) Thyroid: Thyroid normal Chest Chest palpation & inspection: normal inspection of the chest, normal palpation of entire chest wall and no tenderness Resp Other: Percussion note is resonant, breath sounds are distant, Breath sounds are somewhat diminished over the basilar areas on both sides. However he does not have any wheezes or crepitations on auscultation. Cardio Palpation: PMI not normal (PMI not palpable) Rate: regular rate Rhythm: regular rhythm Heart sounds: no gallops and no murmurs GI Palpation (GI): Soft to palpation, nontender, No hepatosplenomegaly present, no masses and Other GI palpation findings present (Abdomen is moderately obese and protuberant) Auscultation: normal bowel sounds Back/Spine/Pelvis Thoracic/Lumbar Spine: thoracic and lumbar spine normal to inspection and thoraco-lumbar ROM limited Skin General skin exam: no rashes or lesions noted Neuro General: patient oriented x3 and no focal motor deficits Cranial nerves: Yes CN's II-XII intact bilaterally Extrem General: Yes normal to inspection, Yes no clubbing, cyanosis or edema, Yes no calf tenderness and Yes venous stasis dermatitis (Mild over the lower parts of the legs) Psych Appearance: grossly normal and well kempt Speech and movement: Normal speech and movement present Assessment & Plan Assessment & Plan (1) Asthma with COPD (chronic obstructive pulmonary disease): Comment: He has asthma/COPD syndrome. He is on maximum treatment. He has some problem in using the medication, claiming that generic albuterol does not help him. He uses brand ProAir , pace [id number]. And finishes to inhalers per month. This is in addition to using Trelegy inhaler once a day . Code(s): J44.89 - Other specified chronic obstructive pulmonary disease Category: Medical Plan: I explained to him about over use of medication. Not all the squeaking sounds are due to asthma, they are due to narrowing of the upper airways. I advised him to cut down the use of albuterol HFA. Try to sleep in lateral position. And try to keep the had side propped up when sleeping. (2) Obesity (BMI 30-39.9): Comment: The patient is moderately obese with a round face and short/obese neck. He has typical anatomical features for obstructive sleep apnea. Code(s): E66.9 - Obesity, unspecified Category: Medical Plan: Again discussed with him about being overweight. Advise that he does need to lose 10-15 lb of weight . (3) MALATHI (obstructive sleep apnea): Comment: Patient has confirmed diagnosis of obstructive sleep apnea. CPAP therapy was prescribed with auto PAP mode . However he has remained totally non compliant and has stopped using the CPAP. I had a good discussion with him, and my feeling is that he is not going to be able to use the CPAP. Code(s): G47.33 - Obstructive sleep apnea (adult) (pediatric) Category: Medical Plan: I had a good discussion with him, and advised to try using the CPAP at night again. He promises that he will try to use it. Coding Level of Care Code Est Pt Level 3 (96081) Diagnoses Asthma with COPD (chronic obstructive pulmonary disease) J44.89 Obesity (BMI 30-39.9) E66.9 MALATHI (obstructive sleep apnea) G47.33
== END 2024-01-20 14:50 | disposition home or self-care (01) ==
PROVIDERS: PCP Registered Nurse; Visit Provider Internal Medicine
DX: J44.89 Other specified chronic obstructive pulmonary disease (principal); E66.9 Obesity, unspecified; G47.33 Obstructive sleep apnea (adult) (pediatric)
CPT/HCPCS: 99213

== ENCOUNTER → 2024-01-20 14:04 | Outpatient (BNVA) | payer OTHER, SELFPAY | PROVIDERS: PCP Registered Nurse; Visit Provider Internal Medicine | DX: G47.33 Obstructive sleep apnea (adult) (pediatric) (principal); J44.89 Other specified chronic obstructive pulmonary disease; E66.9 Obesity, unspecified; Z68.34 Body mass index [BMI] 34.0-34.9, adult | CPT/HCPCS: 99212 ==

== ENCOUNTER 2024-03-23 13:12 | Outpatient (AMB) | payer OTHER, SELFPAY ==
[2024-03-23 13:29] VITALS: BP 130/70; PULSE 74; O2SAT 95; BMI 34.5
--- NOTE | 2024-03-23 13:29 | A.OFFVIS_ITS ---
Vital Signs 03/23/24 13:29 Height 5 ft 4 in Weight 201 lb BMI 34.5 BP 130/70 Blood Pressure Location Lt brachial Position Sitting Pulse 74 Pulse Source Pulse Oximeter Pulse Oximetry (%) 95 Oxygen Delivery Method Room Air Intake Visit Reasons: Obstructive sleep apnea Intake Note: pt is here for follow up and states he is okay [employer] Labor Required: No Allergies No Known Allergies [No Known Allergies*] Allergy (Verified 03/23/24 13:42) Medication List - Last Reconciled 03/23/24 by Marie Rico MD albuterol sulfate 90 mcg/actuation 2 puffs PO Q4-6H PRN atorvastatin 10 mg PO DAILY baclofen 10 mg PO TID betamethasone dipropionate 0.05% 1 appl topical BID bupropion HCl XL (Wellbutrin XL) 300 mg PO QAM dapagliflozin propanediol (Farxiga) 10 mg PO QAM paatvgwhbio-ogrcgczid-itkxlibz 200-62.5-25 mcg (Trelegy Ellipta) 1 inh inhalation DAILY furosemide 40 mg PO QAM 30 days guaifenesin ER (Mucinex) 600 mg PO BID 30 days ipratropium-albuterol 0.5 mg-3 mg(2.5 mg base)/3 mL mL inhalation methadone 10 mg PO DAILY montelukast 1 tab PO QPM quetiapine 25 mg PO BEDTIME PRN Do you need a note to return to daycare/school/sports/work: No HPI HPI Obstructive sleep apnea: Details: 63 years old gentleman who is grossly obese especially in the upper torso, with a round face and short/obese neck. He has obstructive sleep apnea but was not able to use the CPAP. He is also not able to lose much weight, though he claims that he does not eat much. Bronchial asthma/ COPD, is controlled fairly well, and he has cut down the use of albuterol. Now he does not use much albuterol at night only once or twice during the daytime. He continues to use Trelegy Ellipta once a day . [facility] Medical History Asthma with COPD (chronic obstructive pulmonary disease) Somnolence, daytime Obesity (BMI 30-39.9) Hx of substance abuse Pancreatitis Depression HTN (hypertension) Asthma Surgical History History of mandibular surgery History of ERCP Hx of cholecystectomy Social History Alcohol intake: never Patient Tobacco Use Status: Never used Tobacco Substance Use Type: Heroin Review of Systems Const All systems reviewed & are unremarkable except as noted in HPI and below Eyes Reports no additional complaints ENT Reports nasal congestion (mild off and on ) Card Denies chest pain, Denies irregular heart rhythm and Denies leg edema Resp Reports as per HPI GI Reports no additional complaints Reports no additional complaints Musc Reports back pain Skin/Breast Reports system reviewed and no additional complaints, except as documented Neuro Reports no additional complaints Psych Reports anxiety Endo Reports other (hyperglycemia ) Aller/Immun Reports no additional complaints Physical Exam Vital Signs: Last Vital Signs Pulse 74 03/23/24 13:29 BP 130/70 03/23/24 13:29 Pulse Ox 95 03/23/24 13:29 Oxygen Delivery Method Room Air 03/23/24 13:29 BMI result Body Mass Index 34.5 Const Other: Grossly overweight with a round face. General: comfortable, no acute distress, alert and awake Orientation/consciousness: patient oriented x3 HEENT Head: Yes normal to inspection General nose exam: No nasal polyps present and No nasal discharge present Face and sinus: Yes sinuses nontender Mouth: oropharynx abnormals (Tongue is placed back oropharynx is narrow, Mallampati scale 4) Throat: Yes posterior oropharynx normal Eyes General: appearance normal, both eyes and all related structures Neck Neck: Yes normal visual inspection, Yes no lymphadenopathy, Yes trachea midline, Yes no JVD and Yes other (Neck circumference 17 in) Thyroid: Thyroid normal Chest Chest palpation & inspection: normal inspection of the chest, normal palpation of entire chest wall and no tenderness Resp Other: Percussion note is resonant, breath sounds are distant, Breath sounds are somewhat diminished over the basilar areas on both sides. However he does not have any wheezes or crepitations on auscultation. Cardio Palpation: PMI not normal (PMI not palpable) Rate: regular rate Rhythm: regular rhythm Heart sounds: no gallops and no murmurs GI Palpation (GI): Soft to palpation, nontender, No hepatosplenomegaly present, no masses and Other GI palpation findings present (Abdomen is moderately obese and protuberant) Auscultation: normal bowel sounds Back/Spine/Pelvis Thoracic/Lumbar Spine: thoracic and lumbar spine normal to inspection and thoraco-lumbar ROM limited Skin General skin exam: no rashes or lesions noted Neuro General: patient oriented x3 and no focal motor deficits Cranial nerves: Yes CN's II-XII intact bilaterally Extrem General: Yes normal to inspection, Yes no clubbing, cyanosis or edema, Yes no calf tenderness and Yes venous stasis dermatitis (Mild over the lower parts of the legs) Psych Appearance: grossly normal and well kempt Speech and movement: Normal speech and movement present Assessment & Plan Assessment & Plan (1) Asthma with COPD (chronic obstructive pulmonary disease): Comment: He has asthma/COPD syndrome. He is on maximum treatment. He has some problem in using the medication, claiming that generic albuterol does not help him. He uses brand ProAir , pays [id number]. He claims that he is not using albuterol excessively. He continues to use Trelegy Ellipta once a day. Code(s): J44.89 - Other specified chronic obstructive pulmonary disease Category: Medical Plan: Again reinforced that he should use Trelegy Ellipta once a day in the morning And use albuterol HFA ( Proair ) no more than once or twice a day. (2) Obesity (BMI 30-39.9): Comment: The patient is moderately obese with a round face and short/obese neck. He has typical anatomical features for obstructive sleep apnea. Code(s): E66.9 - Obesity, unspecified Category: Medical Plan: Again reinforced that he needs to lose some weight. I advised that he should try to lose at least 10 lb by the next visit. (3) MALATHI (obstructive sleep apnea): Comment: Patient has confirmed diagnosis of obstructive sleep apnea. CPAP therapy was prescribed with auto PAP mode . However he remained totally non compliant and has stopped using the CPAP. Claims that he is sleeping fairly well. Code(s): G47.33 - Obstructive sleep apnea (adult) (pediatric) Category: Medical Plan: Advised to sleep in lateral position. As noted above he is advised to lose some weight, at least 10 lb by next visit. Coding Level of Care Code Est Pt Level 3 (76557) Diagnoses Asthma with COPD (chronic obstructive pulmonary disease) J44.89 Obesity (BMI 30-39.9) E66.9 MALATHI (obstructive sleep apnea) G47.33
== END 2024-03-23 13:44 | disposition home or self-care (01) ==
PROVIDERS: PCP Registered Nurse; Visit Provider Internal Medicine
DX: J44.89 Other specified chronic obstructive pulmonary disease (principal); E66.9 Obesity, unspecified; G47.33 Obstructive sleep apnea (adult) (pediatric)
CPT/HCPCS: 99213

== ENCOUNTER → 2024-03-23 13:12 | Outpatient (BNVA) | payer OTHER, SELFPAY | PROVIDERS: PCP Registered Nurse; Visit Provider Internal Medicine | DX: G47.33 Obstructive sleep apnea (adult) (pediatric) (principal); J44.89 Other specified chronic obstructive pulmonary disease; E66.9 Obesity, unspecified; Z68.34 Body mass index [BMI] 34.0-34.9, adult | CPT/HCPCS: 99212 ==

== ENCOUNTER 2024-04-01 12:13 | Outpatient (REF) | payer OTHER, SELFPAY ==
[2024-04-01 13:58] LABS: Hematocrit 44.4 % (42.0-52.0); Hemoglobin 13.7 g/dl (14.0-18.0); Mean Corpuscular HGB Conc 30.9 g/dl (31.0-36.0); Mean Corpuscular Hemoglobin 26.4 pg (27.0-33.0); Mean Corpuscular Volume 85.5 fL (80.0-98.0); Mean Platelet Volume 8.7 fL (9.4-12.4); Platelet Count 315 X10*3/uL (160-400); Red Blood Count 5.19 X10*6/uL (4.60-5.80); Red Cell Distribution Width 13.2 % (11.0-16.0); White Blood Count 8.5 X10*3/uL (4.8-10.8)
[2024-04-01 14:09] LABS: Estimated Average Glucose 126 mg/dL; Hemoglobin A1C 141.4013 umol/L; Total Hemoglobin (HGBA1C) 3364.5766 umol/L
[2024-04-01 14:14] LABS: Alanine Aminotransferase 13 U/L (0-40); Albumin Level 4.3 g/dL (3.5-5.0); Alkaline Phosphatase 87 U/L (39-117); Anion Gap 11 (12-20); Aspartate Amino Transferase 17 U/L (5-37); Bilirubin Total 0.5 mg/dL (0.0-1.0); Blood Urea Nitrogen 10 mg/dL (9-16); Calcium 9.6 mg/dL (8.4-10.2); Carbon Dioxide 31 mmol/L (22-29); Chloride 104 mmol/L (96-108); Cholesterol 171 mg/dL (<200); Estimated Glomerular Filt Rate > 60; Glucose Random 124 mg/dL (60-115); HDL Cholesterol 44 mg/dL (>40); Iron 56 mcg/dL (45-160); LDL Cholesterol Calculated 96 mg/dL (<100); Percent Iron Saturation 18 % (15-50); Sodium 142 mmol/L (135-145); Total Iron Binding Capacity 311 mcg/dL (228-428); Total Protein 7.9 g/dL (6.5-8.0); Triglycerides 158 mg/dL (<150); Unsaturated Iron Binding 255 ug/dL
[2024-04-01 14:34] LABS: Ferritin 85 ng/mL (20-250); Free T4 (Free Thyroxine) 0.89 ng/dL (0.71-1.85); Thyroid Stimulating Hormone 2.31 uIU/mL (0.32-4.0)
[2024-04-01 14:40] LABS: Folate 7.2 ng/mL (> or = 4.0); Prostate Specific Antigen < 0.10 ng/mL (<0.05-4.0); Vitamin B12 504 pg/mL (200-900)
== END 2024-04-01 12:14 | disposition home or self-care (01) ==
LOC: HO.HHCL 12:13
PROVIDERS: Visit Provider Student in an Organized Health Care Education/Training Program
DX: E11.9 Type 2 diabetes mellitus without complications (principal); Z12.5 Encounter for screening for malignant neoplasm of prostate
CPT/HCPCS: 36415; 80053; 80061; 82607; 82728; 82746; 83036; 83540; 84153; 84439; 84443; 85027

== ENCOUNTER 2024-08-03 16:10 | Outpatient (REF) | payer OTHER, SELFPAY | END 2024-08-03 16:11 | disposition home or self-care (01) | LOC: HO.HHCX 16:10 | PROVIDERS: Visit Provider Nurse Practitioner | DX: M25.561 Pain in right knee (principal) | CPT/HCPCS: 73564 ==

== ENCOUNTER → 2024-08-03 16:11 | Outpatient (BNV) | payer OTHER, SELFPAY | PROVIDERS: Visit Provider Radiology Diagnostic Radiology | DX: M17.12 Unilateral primary osteoarthritis, left knee (principal) | CPT/HCPCS: 73564 ==

== ENCOUNTER 2024-08-17 16:04 | Outpatient (REF) | payer OTHER, SELFPAY ==
--- NOTE | ~2024-08-17 | XR_ITS ---
EXAMINATION: XR ANKLE, LEFT CLINICAL INFORMATION: Lateral pain; unable to bear weight; no recalled injury. COMPARISON: None available. TECHNIQUE: AP, lateral, and mortise views of the left ankle. FINDINGS: No definite acute fracture, dislocation, or suspicious bone lesion. Ankle mortise is intact. The talar dome is normal. There is an exostosis arising from the lateral tibial metadiaphysis in the region of the interosseous ligament. This may be secondary to old injury. There is a likely healed fracture of the posterior malleolus. The calcaneus, subtalar joints, and hindfoot appear normal. The midfoot appears normal. Normal plantar arch. No significant soft tissue swelling identified. Suggestion of an ankle joint effusion on the lateral projection. XR/XR ankle LT min 3V IMPRESSION: 1. No acute fracture or dislocation. No acute bony abnormalities. Sequela of old trauma. 2. No soft tissue abnormalities. 3. Probable joint effusion evidenced on the lateral projection. Electronically signed by: Tereso Lawrence MD 08/17/2024 04:32 PM [facility]
--- OUTSIDE RECORDS SUMMARY | 2024-08-17 18:12 | XMS_ITS | Patient Health Record ---
Author Organization [facility] Address [address] [place] [address] Care Team Providers Care Lumber Carrier Operator Name Role Phone JOSESITO LONDON, PARAM Primary Care Provider Mcih Bentley Unavailable [phone] ALLERGIES No Known Allergies REASON FOR REFERRAL No Information MEDICATIONS Medication SIG (Take, Route, Frequency, Duration) Notes Start Date End Date Status FreeStyle Shaneka 2 Sensor - USE TO CHECK BLOOD SUGAR EVERY 8 HOURS, replace sensor EVERY 14 DAYS for 28 E1140,Unavail able Active Trelegy Ellipta 200-62.5-25 MCG/ACT INHALE 1 PUFF BY MOUTH EVERY DAY AT THE SAME TIME IN THE MORNING Inhalation for 30 Active OneTouch Delica Plus Ufloxt11R - for 25 Active Albuterol Sulfate HFA 108 (90 Base) MCG/ACT Inhalation for 17 A ctive Chlorhexidine Gluconate 0.12 % Mouth/Throat for 16 Acti ve buPROPion HCl ER (XL) 150 MG TAKE 1 TABLET BY MOUTH EVERY MORNING Oral for 30 Active Amitriptyline HCl 10 MG TAKE 1 TABLET BY MOUTH EVERY DAY AT BEDTIME Oral for 30 [id number],Unavai lable Active Trulicity 1.5 MG/0.5ML Subcutaneous for 28 Active Zoloft 100 MG 1.5 tablet Orally Once a day Active Nebulizer - as directed Active Singulair 10 MG 1 tablet Orally Once a day for 30 day(s) Active cloNIDine HCl 0.1 MG Oral for 30 Active Zofran 8 MG 1 tablet as needed Orally Once a day for 30 day(s) Active MiraLax 17 GM/SCOOP 1 scoop mixed with 8 ounces of fluid Orally Twice a day on an everyday basis for constipation for 30 day(s) 07/26/2023 Active ProAir HFA 108 (90 Base) MCG/ACT 1 puff as needed Inhalation every 4 hrs Active Vitamin D3 10 MCG (400 UNIT) 1 tablet Orally Once a day for 30 day(s) Active SEROquel 25 MG 1.5 at bedtime 25 mg as needed Orally Once a day Active Omeprazole 20 MG 1 capsule 30 minutes before morning meal Orally Once a day for 30 day(s) PRN Active Senokot 8.6 MG 2 tablets at bedtime as needed Orally Once a day for 30 day(s) Active Gabapentin 300 MG Oral for 30 Active Acetaminophen ER 650 MG 2 tablets as needed Orally every 8 hrs Active Dulcolax (colon prep) 5 MG Take 2 tablets two days before the colonoscopy, then take at 3:00 p.m and 7:00p.m. Orally Two tablets two days before the procedure, and then two tablets twice a day for one day for 2 days 07/27/2023 Active Colace 100 MG 1 capsule as needed Orally Once a day for 30 day(s) Active Baclofen 10 MG TAKE 1 TABLET BY MOUTH THREE TIMES DAILY NEEDED FOR MUSCLE SPASMS Oral for 20 [id number],Unavai lable Active Metamucil 0.36 GM 2 with 8 ounces of water Orally BID for constipation for 30 days 01/05/2021 Not-Taking Losartan Potassium 100 MG TAKE 1 TABLET BY MOUTH EVERY DAY IN THE MORNING Oral for 90 Active Flovent HFA 110 MCG/ACT 1 puff Inhalation Twice a day Active Methadone HCl 10 MG 5 tablet Orally Once a day Active MiraLax (colon prep) 17 GM/SCOOP Take 1/2 of a 238 Gm bottle of Miralax mixed with 1 quart of Gatorade 2 days before the colonoscopy, and then 1 full 238Gm bottle of Miralax mixed with Gatorade or Crystal Light Orally Take the 1/2 bottle of Miralax with the Gatorade 2 days before the colonoscopy, and then begin the full bottle of Miralax and Gatorade at 5:00 p.m. the day before the procedure for 2 days 07/27/2023 Active Diclofenac Potassium 50 MG 1 tablet with food or milk Orally Twice a day for 30 day(s) Not-Taking DuoNeb 0.5-2.5 (3) MG/3ML 3 ml as needed Inhalation every 6 hrs Active IMMUNIZATIONS Vaccine Route Administration Date Status Comme nts Influenza Unknown 07/16/2023 Administered Influenza Unknown 01/04/2021 Refused SOCIAL HISTORY Tobacco Use: Social History Observation Description Date Details (start date - stop date) Never Smoker NA - NA Sex Assigned At : Social History Observation Description Sex Assigned At Unknown Tobacco Use/Smoking Question Answer Notes Patient is a nonsmoker Alcohol Screen Question Answer Notes Did you have a drink containing alcohol in the p ast year? No Points 0 Interpretation Negative PROBLEMS Problem Type ICD Code Onset Dates Problem Status W/U Status Risk SNOMED Code Notes Problem Encounter for screening for malignant neoplasm of colon (Z12.11) Active confirmed 179554502 Problem Constipation, unspecified constipation type (K59.00) Active confirmed 97869548 Problem Positive colorectal cancer screening using Cologuard test (R19.5) Active confirmed [id number] Encounters Encounter Location Date Provider Diagnosis [facility] Outpatient [address] [place], [place] [id number] 10/23/2023 Mich Grossman [facility] [address] [place] [phone] 09/01/2023 Mich Grossman [facility] [address] [place] [phone] 10/14/2023 Mich Grossman PLAN OF TREATMENT Future Test Test Name Order Date COLONOSCOPY 01/04/2021 COLONOSCOPY 08/10/2021 COLONOSCOPY 07/26/2023 Insurance Providers Payer Name Payer Address Payer Phone Subscriber Number Group Number Insured Name Patient Relationship to Insured Coverage Start Date Coverage End Date [facility] [address] Attn Claims GEMMA Stone [id number] JORDON WASHINGTON Self - patient is the insured MEDICAID OF [facility] [address] [place] [address] [id number] JORDON WASHINGTON Self - patient is the insured MEDICAL (GENERAL) HISTORY Medical History History ICD Code Asthma Denies [place],CVA,renal disease Hypertension Gallstone pancreatitis in 2013--ERCP wit h sphincterotomy Depression Psoriasis Constipation Substance abuse as below--st ill uses heroin intermittently as of the 07/26/2023 OV + Cologuard 04/2023 Surgical History Surgery Date(Month/Year) Cholecystectomy 2014 Jaw surgery > 30 yrs ago
--- OUTSIDE RECORDS SUMMARY | 2024-08-17 18:12 | XMS_ITS | Encounter Summary ---
Author Organization [employer] Address [address] [facility] [place] [address] Care Team Providers Care Chemical Laboratory Chief Name Role Phone Claudia Astorga MD Primary Care Pro vider Reason for Visit * Reason Comments Med Refill Encounter Details Date Type Department Care Team ([facility] st Contact Info) Description 04/05/2023 Refill [facility] [address] [place], [place] [phone] Barrington Dunbar AGNP Newly diagnosed diabetes ([facility]) Social History Tobacco Use Types Packs/Day Years Used Date Smoking Tobacco: Never Passive Smoke Exposure: Never Smokeless Tobacco: Never Alcohol Use Standard Drinks/Week Comments Never 0 (1 standard drink = 0.6 oz pur e alcohol) PHQ-2 Answer Date Recorded Patient Health Questionnaire-2 Score 0 07/25/2022 Housing Stability Answer Date Recorded What is your housing situation today? I have claudia baldwin 04/09/[address] you li ve. Do you have problems with any of the following? None of the above 04/09/2023 Food Insecurity Answer Date Recorded Within the past 12 months, y ou worried that your food would run out before you got money to buy more: Never True 04/09/2023 Within the past 12 months,th e food you bought just didn't last and you didn't have enough money to get more: Never True Transportation Answer Date Recorded In the past 12 months, has l ack of transportation kept you from medical appts, meetings, work or from getting things needed for daily living? No 04/09/2023 Utilities Answer Date Recorded In the past 12 months, has t he electric, gas, oil or water company threatened to shut off services in your home? No 04/09/2023 Depression Answer Date Recorded Patient Health Questionnaire-2 Score 0 07/25/2022 Sex and Gender Information Value Date Recorded Sex Assigned at Male 04/23/2022 10:19 AM EDT Legal Sex Male 10:19 AM EDT Gender Identity Male 04/23/2022 10:19 AM EDT Sexual Orientation Straight 04/23/2022 10 :19 AM EDT documented as of this encounter Plan of Treatment Upcoming Encounters Date Type Department Care Team (Late st Contact Info) Description 08/19/2024 2:00 PM EST Telemedicine [address] [address] 09/02/2024 10:30 AM EDT Office Visit [address] [address] Mary Sanchez FNP [address] [place] [address] 09/07/2024 9:30 AM EDT Medication Management [address] [address] Perla Rahman, ChrisD [address] [place] [phone] documented as of this encounter Visit Diagnoses Diagnosis Newly diagnosed diabetes ([facility]) Type II or unspecified type diabetes mellitus without mention of complication, not stated as uncontrolled documented in this encounter Care Teams Chemical Laboratory Chief Relationship Specialty Start Date End Date Claudia Astorga MD [address] [place] [id number] PCP - General Internal Medicine 02/28/23 documented as of this encounter
--- OUTSIDE RECORDS SUMMARY | 2024-08-17 18:12 | XMS_ITS | Encounter Summary ---
Author Organization [employer] [facility] Address [address] 7t [place] [address] Care Team Providers Care Tape Recorder Repairer Name Role Phone Rg Canseco MD Primary Care Provider Barrington Vásquez Primary Care Provider Claudia Portillo MD Primary Care Pro vider Reason for Visit * Reason Comments Med Refill Encounter Details Date Type Department Care Team (Late Contact Info) Description 07/10/[address] [facility] [address] [place] [address] Kaci Monge MD [address] [place] [phone] Acute bronchitis, unspecified organism Social History Tobacco Use Types Packs/Day Years Used Date Smoking Tobacco: Never Smokeless Tobacco: Never Sex and Gender Information Value Date Recorded Sex Assigned at Male 04/23/2022 10:19 AM EDT Legal Sex Male 10:19 AM EDT Gender Identity Male 04/23/2022 10:19 AM EDT Sexual Orientation Straight 04/23/2022 10 :19 AM EDT COVID-19 Exposure Response Date Recorded In the last 10 days, have yo u been in contact with someone who was confirmed or suspected to have Coronavirus/COVID-19? No / Unsure 07/11/2022 10:51 AM EST documented as of this encounter Plan of Treatment Upcoming Encounters Date Type Department Care Team (Late Contact Info) Description 08/19/2024 2:[address] [facility] [address] [place] [phone] 09/02/2024 10:30 AM EDT Office Visit [address] [phone] Mary Sanchez, DICTAPHONE TRANSCRIBER 505 [place] [address] 09/07/2024 9:30 AM EDT Medication Management [facility] [address] [place], [place] [phone] Perla Rahman PharmD 230 [place], [place] [phone] documented as of this encounter Visit Diagnoses Diagnosis Acute bronchitis, unspecified organism documented in this encounter Care Teams Tape Recorder Repairer Relationship Specialty Start Date End Date Rg Canseco MD PCP - General Family Medicine 12/10/19 07/17/22 Barrington Dunbar AGNP PCP - General Family Medicine 07/18/22 02/27/23 Claudia Astorga MD [address] [place] [address] [phone] PCP - General Internal Medicine 02/28/23 documented as of this encounter
--- OUTSIDE RECORDS SUMMARY | 2024-08-17 18:12 | XMS_ITS ---
Author Organization [facility] Address [address] [place] [address] Care Team Providers Care Dural Mechanic Name Role Phone PARAM BELLAMY MD Primary Care Provider Unavaila Mich Lora [phone] REASON FOR VISIT positive colon ca screening using cologuard,constipation Encounters Encounter Location Date Provider Diagnosis [facility] Outpatient [address] [place], [place] [id number] 10/23/2023 Mich Grossman PLAN OF TREATMENT No Information
--- OUTSIDE RECORDS SUMMARY | 2024-08-17 18:12 | XMS_ITS | Encounter Summary ---
Author Organization [employer] [facility] Address [address] [facility] 7t [place] [address] Care Team Providers Care Civil Laboratory Technician Name Role Phone Barrington Dunbar Primary Care Provider Unavail Claudia Carrillo MD Primary Care Pro vider Encounter Details Date Type Department Care Team (Late st Contact Info) Description 08/29/[address] [facility] [address] [place] [phone] Barrington Dunbar AGNP Social History Tobacco Use Types Packs/Day Years Used Date Smoking Tobacco: Never Smokeless Tobacco: Never Alcohol Use Standard Drinks/Week Comments Never 0 (1 standard drink = 0.6 oz pur e alcohol) PHQ-2 Answer Date Recorded Patient Health Questionnaire-2 Score 0 07/25/2022 Depression Answer Date Recorded Patient Health Questionnaire-2 [...] suspected to have Coronavirus/COVID-19? No / Unsure 08/08/2022 10:53 AM EST documented as of this encounter Plan of Treatment Upcoming Encounters Date Type Department Care Team (Late st Contact Info) Description 08/19/2024 2:[address] [facility] [address] [place] [address] 09/02/2024 10:30 AM EDT Office Visit [address] [address] Mary Sanchez FNP 505 [place] [address] 09/07/2024 9:30 AM EDT Medication Management [facility] 230 [place], [place] [phone] Perla Rahman, ChrisD 230 [place], [place] [phone] documented as of this encounter Visit Diagnoses Not on filedocumented in this encounter Care Teams Civil Laboratory Technician Relationship Specialty Start Date End Date Barrington Dunbar AGNP PCP - General Family Medicine 07/18/22 02/27/23 Claudia Astorga MD [address] [place] [address] [phone] PCP - General Internal Medicine 02/28/23 documented as of this encounter
--- OUTSIDE RECORDS SUMMARY | 2024-08-17 18:12 | XMS_ITS | Encounter Summary ---
Author Organization [employer] Address [address] 7t [place] [address] Care Team Providers Care Calculus Professor Name Role Phone Claudia Astorga MD Primary Care Pro vider Reason for Visit * Reason Comments Med Refill Encounter Details Date Type Department Care Team ([facility] st Contact Info) Description 05/19/2023 Refill [facility] 230 [place], [place] [phone] Mc Stewart MD 230 [place] [address] Social History Tobacco Use Types Packs/Day Years Used Date Smoking Tobacco: Never Passive Smoke Exposure: Never Smokeless Tobacco: Never Alcohol Use Standard Drinks/Week Comments Never 0 (1 standard drink = 0.6 oz pur e alcohol) PHQ-2 Answer Date Recorded Patient Health Questionnaire-2 Score 0 07/25/2022 Housing Stability Answer Date Recorded What is your housing situation today? I have claudiaerrol baldwin 04/09/[address] you [...] t he electric, gas, oil or water [employer] threatened to shut off services in your [...] Info) Description 08/19/2024 2:00 PM EST Telemedicine [address] [address] 09/02/2024 10:30 AM EDT Office Visit [address] [address] Mary Sanchez, STEAM DISTRIBUTION SUPERVISOR 505 [place] [address] 09/07/2024 9:30 AM EDT Medication Management [address] [address] Perla Rahman, PharmD [address] [place] [phone] documented as of this encounter Visit Diagnoses Not on filedocumented in this encounter Care Teams Calculus Professor Relationship Specialty Start Date End Date Claudia Astorga MD [address] [place] [phone] PCP - General Internal Medicine 02/28/23 documented as of this encounter
--- OUTSIDE RECORDS SUMMARY | 2024-08-17 18:12 | XMS_ITS | Encounter Summary ---
Author Organization [employer] [facility] Address [address] [facility] 7t [place] [address] Care Team Providers Care Palliative Care Coordinator Name Role Phone Barrington Dunbar Primary Care Provider Unavail Claudia Carrillo MD Primary Care Pro vider Reason for Visit * Reason Onset Date Comments PCP Change 02/07/2023 Encounter Details Date Type Department Care Team (Late st Contact Info) Description 02/07/2023 Telephone [facility] 230 [place] [address] Barrington Dunbar AGNP PCP Change Social History Tobacco Use Types Packs/Day Years [...] AM EDT documented as of this encounter Miscellaneous Notes * Telephone Encounter - Sera Linares - 02/07/2023 12:23 PM EDT Tc from Eloina (care coodinator) at [facility] calling on behalf of patient, requesting for change of PCP. Patient stated PCP is not meeting his medical needs at this time. documented in this encounter Plan of Treatment Upcoming Encounters Date Type Department Care Team (Late st Contact Info) Description 08/19/2024 2:00 PM EST Telemedicine [address] [address] 09/02/2024 10:30 AM EDT Office Visit [address] [address] Mary Sanchez, DIVER ASSISTANT 505 [place] [address] 09/07/2024 9:30 AM EDT Medication Management [address] [address] Perla Rahman PharmD [address] [place] [address] [phone] documented as of this encounter Visit Diagnoses Not on filedocumented in this encounter Care Teams Palliative Care Coordinator Relationship Specialty Start Date End Date Barrington Dunbar AGNP PCP - General Family Medicine 07/18/22 02/27/23 Claudia Astorga MD [address] [place] [phone] PCP - General Internal Medicine 02/28/23 documented as of this encounter
--- OUTSIDE RECORDS SUMMARY | 2024-08-17 18:12 | XMS_ITS | Encounter Summary ---
Author Organization [employer] [facility] Address [address] [facility] 7t [place] [address] Care Team Providers Care Cloth Tester Quality Name Role Phone Barrington Dunbar Primary Care Provider Unavail Claudia Carrillo MD Primary Care Pro vider Reason for Visit * Reason Comments Med Refill Encounter Details Date Type Department Care Team (Late st Contact Info) Description 01/20/2023 Refill [facility] [address] [place] [phone] Barrington Dunbar AGNP Right leg pain Social History Tobacco Use Types Packs/Day Years [...] Info) Description 08/19/2024 2:00 PM EST Telemedicine [facility] [address] [place] [address] [phone] 09/02/2024 10:30 AM EDT Office Visit [facility] [address] [place] [address] [phone] Mary Sanchez FNP 505 [place] [address] 09/07/2024 9:30 AM EDT Medication Management [facility] 230 [place] [address] Perla Rahman, Lloyd 230 [place], [place] [phone] documented as of this encounter Visit Diagnoses Diagnosis Right leg pain Pain in soft tissues of limb documented in this encounter Care Teams Cloth Tester Quality Relationship Specialty Start Date End Date Barrington Dunbar AGNP PCP - General Family Medicine 07/18/22 02/27/23 Claudia Astorga MD [address] [place] [address] [phone] PCP - General Internal Medicine 02/28/23 documented as of this encounter
--- OUTSIDE RECORDS SUMMARY | 2024-08-17 18:12 | XMS_ITS ---
Author Organization [facility] Address [address] [place] [address] Care Team Providers Care Financial Management Consultant Name Role Phone PARAM BELLAMY MD Primary Care Provider Unavaila Mich Lora [phone] REASON FOR VISIT cancel procedure Encounters Encounter Location Date Provider Diagnosis [facility] [address] [place] [address] 10/14/2023 Mich Grossman PLAN OF TREATMENT No Information
--- OUTSIDE RECORDS SUMMARY | 2024-08-17 18:12 | XMS_ITS | Encounter Summary ---
Author Organization [employer] [facility] Address [address] 7t [place] [address] Care Team Providers Care Auger Supervisor Name Role Phone Claudia Astorga MD Primary Care Pro vider Reason for Visit * Reason Comments Med Refill Encounter Details Date Type Department Care Team (Late st Contact Info) Description 03/17/[address] [facility] [address] [place] [address] [phone] Mc Stewart MD 230 [place] [address] Social History Tobacco Use Types Packs/Day Years [...] Info) Description 08/19/2024 2:00 PM EST Telemedicine [facility] [address] [place] [address] [phone] 09/02/2024 10:30 AM EDT Office Visit [facility] [address] [place] [phone] Mary Sanchez, CEDRIC 505 [place], [place] [phone] 09/07/2024 9:30 AM EDT Medication Management [facility] 230 [place], [place] [phone] Perla Rahman, Lloyd 230 [place], [place] [phone] documented as of this encounter Visit Diagnoses Not on filedocumented in this encounter Care Teams Auger Supervisor Relationship Specialty Start Date End Date Claudia Astorga MD [address] [place] [phone] PCP - General Internal Medicine 02/28/23 documented as of this encounter
--- OUTSIDE RECORDS SUMMARY | 2024-08-17 18:13 | XMS_ITS | Encounter Summary ---
Author Organization [employer] Address [address] [facility] 7t [place] [address] Care Team Providers Care Polytechnic Registrar Name Role Phone Claudia Astorga MD Primary Care Pro vider Reason for Visit * Reason Comments Med Refill Encounter Details Date Type Department Care Team ([facility] st Contact Info) Description 11/15/2023 Refill [facility] 230 [place] [address] Claudia Astorga MD 230 [place] [address] Social History Tobacco Use Types Packs/Day Years [...] the past 12 months, has t he [employer], oil or water company threatened to shut [...] Info) Description 08/19/2024 2:00 PM EST Telemedicine [address] [address] 09/02/2024 10:30 AM EDT Office Visit [address] [address] Mary Sanchez, HAND RIGGER 505 [place] [address] 09/07/2024 9:30 AM EDT Medication Management [address] [address] Perla Rahman, PharmD [address] [place] [phone] documented as of this encounter Visit Diagnoses Not on filedocumented in this encounter Care Teams Polytechnic Registrar Relationship Specialty Start Date End Date Claudia Astorga MD [address] [place] [address] PCP - General Internal Medicine 02/28/23 documented as of this encounter
--- OUTSIDE RECORDS SUMMARY | 2024-08-17 18:13 | XMS_ITS | Encounter Summary ---
Author Organization [employer] Address [address] [facility] 7t [place] [address] Care Team Providers Care Medical Records Supervisor Name Role Phone Claudia Astorga MD Primary Care Pro vider Reason for Visit * Reason Comments Med Refill Encounter Details Date Type Department Care Team ([facility] st Contact Info) Description 06/16/2024 Refill [facility] [address] [place] [address] Claudia Astorga MD 230 [place] [address] Social History Tobacco Use Types Packs/Day Years Used Date Smoking Tobacco: Never Passive Smoke Exposure: Never Smokeless Tobacco: Never Alcohol Use Standard Drinks/Week Comments Never 0 (1 standard drink = 0.6 oz pur e alcohol) Depression Answer Date Recorded Patient Health Questionnaire-9 Score 19 01/29/2024 Patient Health Questionnaire-9 Score 19 01/29/2024 Last PHQ-9: Questionnaire Data Not on file 0 01/29/2024 Housing Stability Answer Date Recorded What is your housing situation today? I have claudia baldwin 01/29/[address] you li ve. Do you have problems with any of the following? None of the above 01/29/2024 Food Insecurity Answer Date Recorded Within the past 12 months, y ou worried that your food would run out before you got money to buy more: Never True 01/29/2024 Within the past 12 months,th e food you bought just didn't last and you didn't have enough money to get more: Never True 12/2023 Transportation Answer Date Recorded In the past 12 months, has l ack of transportation kept you from medical appts, meetings, work or from getting things needed for daily living? No 01/29/2024 Utilities Answer Date Recorded In the past 12 months, has t he electric, gas, oil or water company threatened to shut off services in your home? No 01/29/2024 Depression Answer Date Recorded Patient Health Questionnaire-2 Score 3 01/29/2024 Internet Access Answer Date Recorded Internet Access Q1 Yes 02/23/2024 Internet Access Q2 Not on file 02/23/2024 Sex and Gender Information Value Date Recorded Sex Assigned at Male 04/23/2022 10:19 AM EDT Legal Sex Male 10:19 AM EDT Gender Identity Male 04/23/2022 10:19 AM EDT Sexual Orientation Straight 04/23/2022 10 :19 AM EDT documented as of this encounter Plan of Treatment Upcoming Encounters Date Type Department Care Team (Late st Contact Info) Description 08/19/2024 2:00 PM EST Telemedicine [address] [address] 09/02/2024 10:30 AM EDT Office Visit [facility] [address] [place] [phone] Mary Sanchez, FUNDRAISING COORDINATOR 505 [place] [address] 09/07/2024 9:30 AM EDT Medication Management [address] [address] Perla Rahman, ChrisD [address] [place] [phone] documented as of this encounter Visit Diagnoses Not on filedocumented in this encounter Additional Health Concerns Assessment Noted Time PHQ-9 Depression Total Score: 19 024 10:08 AM EDT documented as of this encounter Care Teams Medical Records Supervisor Relationship Specialty Start Date End Date Claudia Astorga MD [address] [place] [phone] PCP - General Internal Medicine 02/28/23 documented as of this encounter
--- OUTSIDE RECORDS SUMMARY | 2024-08-17 18:13 | XMS_ITS | Encounter Summary ---
Author Organization [employer] Address [address] [facility] [address] [facility] [address] 7[address] [place] [address] Care Team Providers Care Dance Hall Host/Hostess Name Role Phone Claudia Astorga MD Primary Care Pro vider Reason for Visit * Reason Comments Joint Swelling Encounter Details Date Type Department Care Team (Late st Contact Info) Description 08/03/2024 3:40 PM EST Office [facility] [address] [place], [place] [phone] Milady Coppola NP [address] [place] [address] Acute pain of right knee (Primary Dx); Leg cramping; Lower leg edema; Elevated blood pressure reading in office with diagnosis of hypertension; Wheezing Social History Tobacco Use Types Packs/Day Years [...] housing situation today? I have claudiaerrol baldwin 01/29/[address] you [...] AM EDT documented as of this encounter Last Filed Vital Signs Vital Sign Reading Time Taken Comments Blood Pressure 147/78 08/03/2024 3:38 PM EST Pulse 94 08/03/2024 3:38 PM EST Temperature 36.8 ??C (98.2 ??F) 08/03/2024 3:38 PM ES T Respiratory Rate 18 08/03/2024 3:38 PM EST Oxygen Saturation 98% 08/03/2024 3:38 PM EST Inhaled Oxygen Concentration - - Weight 94.3 kg (208 lb) 08/03/2024 3:38 PM EST Height - - Body Mass Index 35.7 04/08/2024 9:22 AM EDT documented in this encounter Progress Notes * Milady Coppola NP - 08/03/2024 3:40 PM EST SUBJECTIVE: Shun Enriquez is a 63 y.o. male who presents to the [facility] [place] for a sick visit. Denies recent illness, injury, or hospitalization. HPI Complains of 10/10 pain in his right knee that occurred spontaneously 4 days ago. States he typically has pain in his knees, but not like this. He is unable to describe the pain. Has only tried wearing a knee brace thinking it might help. Also complains of leg cramping lasting for about 20 mins. States this is not a new occurrence, however he's noticed an increase in its frequency over the past 5days. States he is diabetic and was told he has nerve damage. States he has not drank water in about 6 months, only juice. Review of Systems Constitutional: Negative. Negative for chills and fever. HENT: Negative. Negative for congestion and sore throat. Eyes: Negative for discharge. Respiratory: Negative for cough, chest tightness and shortness of breath. Cardiovascular: Negative for chest pain and palpitations. Gastrointestinal: Negative. Negative for abdominal pain, constipation, diarrhea and nausea. Genitourinary: Negative. Negative for difficulty urinating. Musculoskeletal: Positive for arthralgias and gait problem. Negative for myalgias. Skin: Negative for rash. Neurological: Negative for dizziness, speech difficulty, light-headedness and headaches. Hematological: Negative. Psychiatric/Behavioral: Negative for behavioral problems, self-injury and suicidal ideas. The patient is not nervous/anxious. OBJECTIVE: Visit Vitals BP (!) 147/78 (BP Location: Right arm, Patient Position: Sitting, BP Cuff Size: Adult) Pulse 94 Temp 98.2 ??F (36.8 ??C) (Temporal) Resp 18 Wt 208 lb (94.3 kg) SpO2 98% BMI 35.70 kg/m?? Smoking Status Never BSA 2.06 m?? Patient Active Problem List Diagnosis Severe persistent asthma Hypertension Depression, recurrent ([facility]) Opioid dependence ([facility]) Chronic constipation Psoriasis Class 1 obesity due to excess calories with body mass index (BMI) of 33.0 to 33.9 in adult Venous insufficiency of both lower extremities Diabetes due to undrl condition w oth diabetic neuro comp ([facility]) Health care maintenance Phimosis of penis Renal cyst, left Peripheral neuropathy MALATHI (obstructive sleep apnea) Periodontal disease Grief reaction with prolonged bereavement GERD (gastroesophageal reflux disease) Physical Exam Vitals reviewed. Constitutional: General: He is not in acute distress. Appearance: Normal appearance. He is not ill-appearing. HENT: Head: Normocephalic and atraumatic. Right Ear: External ear normal. Left Ear: External ear normal. Nose: Nose normal. Eyes: General: No scleral icterus. Extraocular Movements: Extraocular movements intact. Pulmonary: Effort: Pulmonary effort is normal. No respiratory distress. Breath sounds: Wheezing (audible) present. Musculoskeletal: Cervical back: Normal range of motion. Right knee: No swelling, erythema or crepitus. Decreased range of motion. Tenderness present over the lateral joint line. Instability Tests: Anterior drawer test negative. Posterior drawer test negative. Left knee: Normal. Right lower leg: No tenderness. 3+ Pitting Edema present. Left lower leg: No tenderness. 2+ Pitting Edema present. Comments: genu varum of both legs Neurological: General: No focal deficit present. Mental Status: He is alert and oriented to person, place, and time. Gait: Gait normal. Psychiatric: Mood and Affect: Mood normal. Behavior: Behavior normal. Assessment/Plan Diagnoses and all orders for this visit: Acute pain of right knee Comments: -acute on chronic presentation -likely due to osteoarthritis -X-ray ordered -rx'ed topical NSAID; may also take tylenol as needed pain -discussed benefit of routine physical activity and joint mobility Orders: - XR Knee 4+ Views Right; Future - Diclofenac Sodium 1 % gel; Apply 1 g topically if needed in the morning, at noon, and at bedtime (pain). Leg cramping Comments: -advised water consumption -labs ordered to eval for electrolyte disturbances Orders: - Basic Metabolic Panel; Future - Magnesium; Future Lower leg edema Comments: -bilateral lower extremity -encouraged elevation of legs -rx'ed compression stocking with 20-30 mmHg pressure gradient Elevated blood pressure reading in office with diagnosis of hypertension Comments: -advised low salt/ low fat diet -med compliance encouraged -continue home monitoring -will schedule BP check with team nurses Wheezing Comments: -patient states this is baseline. he does not appear to be in acute distress -he is advised to use rx'ed inhalers upon returning home Follow-up with PCP 1 month or sooner as needed Kyrgyz Translation: Patient is bilingual and declines translation services documented in this encounter Plan of Treatment Upcoming Encounters Date Type Department Care Team (Late st Contact Info) Description 08/19/2024 2:00 PM EST Telemedicine [address] [address] 09/02/2024 10:30 AM EDT Office Visit [facility] [address] [place] [phone] Mary [place], LEAD CASTER [address] [place] [address] 09/07/2024 9:30 AM EDT Medication Management [facility] [address] [facility] [place] [address] Perla Rahman, PharmD [address] [place] [address] Scheduled Orders Name Type Priority Associated Diagnoses Orde r Schedule Basic Metabolic Panel Lab Routine Leg cramping Expected: 08/03/2024 (Approximate), Expires: 08/03/2025 Magnesium Lab Routine Leg cramping Expected: 08/03/2024, Expires: 08/03/2025 documented as of this encounter Procedures Procedure Name Priority Date/Time Associated Diagnosis Comments XR KNEE 4+ VIEWS RIGHT Routine 08/03/2024 4:11 PM EST Acute pain of right knee documented in this encounter Results * XR Knee 4+ Views Right (08/03/2024 4:11 PM EST) Anatomical Region Laterality Modality Lower Extremities, Knee Right [facility] 08/03/2024 4:11 PM EST Narrative 08/04/2024 8:51 AM EST ?[facility] ?[address] [facility]. ?[place] [address] ?XRay Report ? Signed ? Patient: Shun Jeronimo ?MR#: [id number] ?? [id number] ? : 1960 ?Acct:[id number] ? Age/Sex: 63 / M ?ADM Date: //25 ? Loc: HO.HHCX ? Attending Stephanie Coppola ? Ordering Physician: Milady Coppola ?? Date of Service: 08/03/24 ?? Procedure(s): XR knee RT 4V ?? Accession Number(s): [id number] ? cc: Milady Coppola ? EXAMINATION: ??XR KNEE 4 OR MORE VIEWS RIGHT ? HISTORY: pain ? COMPARISON: Comparison is made with the prior examination dated ?? 01/24/2016. ? FINDINGS: ? Four views of the right knee are submitted. ??Osseous mineralization is ?? normal. ??There is no fracture or dislocation. ??There is severe joint ?? space narrowing involving the medial compartment. There is mild ?? degenerative change involving the patellofemoral compartment with joint ?? space narrowing and osteophyte formation. ??The soft tissues are ?? unremarkable. There is no joint effusion. ? XR/XR knee RT 4V ?? IMPRESSION: ? Severe osteoarthritis of the medial compartment and mild osteoarthritis ?? of the patellofemoral compartment. ? Electronically signed by: ??Mich Higuera MD ??08/04/2024 08:48 AM EST ?? RP ? Dictated By: ?Mich Higuera MD ? Signed By: ?<Electronically signed by Mich Higuera MD in OV> ?08/04/24 0848 ? DD/ 1611 ? TD/TT: 08/03/24 1615 ? Part Time Receptionist: ? Procedure Note Rishabh Hernandez - 08/04/[address] [address] XRay Report Signed Patient: Shun JeronimoMR#: M [id number] : 1960cct:[id number] Age/Sex: 63 / MADM Date: 08/03/24 Loc: HO.HHCX Attending Dr: Milady Coppola Ordering Physician: Milady Coppola Date of Service: 08/03/24 Procedure(s): XR knee RT 4V Accession Number(s): [id number] cc: Milady Coppola EXAMINATION: XR KNEE 4 OR MORE VIEWS RIGHT HISTORY: pain COMPARISON: Comparison is made with the prior examination dated 01/24/2016. FINDINGS: Four views of the right knee are submitted. Osseous mineralization is normal. There is no fracture or dislocation. There is severe joint space narrowing involving the medial compartment. There is mild degenerative change involving the patellofemoral compartment with joint space narrowing and osteophyte formation. The soft tissues are unremarkable. There is no joint effusion. XR/XR knee RT 4V IMPRESSION: Severe osteoarthritis of the medial compartment and mild osteoarthritis of the patellofemoral compartment. Electronically signed by: Mich Higuera MD 08/04/2024 08:48 AM EST RP Dictated By: Mich Higuera MD Signed By: <Electronically signed by Mich Higuera MD in OV> 08/04/24 0848 DD/ 1611 TD/TT: 08/03/24 1615 Part Time Receptionist: Milady Hollingsworthm CORPORATE ACCOUNTANT IMG XR PROCEDURES Final Result documented in this encounter Visit Diagnoses Diagnosis Acute pain of right knee- Primary Leg cramping Lower leg edema Elevated blood pressure reading in office with diagnosis of hypertension Wheezing documented in this encounter Additional Health Concerns Assessment Noted Time PHQ-9 Depression Total Score: 19 024 10:08 AM EDT documented as of this encounter Care Teams Dance Hall Host/Hostess Relationship Specialty Start Date End Date Claudia Astorga MD [address] [place] [id number] PCP - General Internal Medicine 02/28/23 documented as of this encounter
--- OUTSIDE RECORDS SUMMARY | 2024-08-17 18:13 | XMS_ITS | Encounter Summary ---
Author Organization [employer] Address [address] [facility] 7t [place] [address] Care Team Providers Care Farm Mortgage Agent Name Role Phone Claudia Astorga MD Primary Care Pro vider Encounter Details Date Type Department Care Team (Latest Contact Info) Description 08/12/2024 Travel Social History Tobacco Use Types Packs/Day Years [...] Info) Description 08/19/2024 2:00 PM EST Telemedicine [address] [address] 09/02/2024 10:30 AM EDT Office Visit [address] [address] Mary [place], CEDRIC [address] [place] [address] 09/07/2024 9:30 AM EDT Medication Management [address] [address] Perla Rahman, ChrisD [address] [place] [phone] documented as of this encounter Visit Diagnoses Not on filedocumented in this encounter Additional Health Concerns Assessment Noted Time PHQ-9 Depression Total Score: 19 024 10:08 AM EDT documented as of this encounter Care Teams Farm Mortgage Agent Relationship Specialty Start Date End Date Claudia Astorga MD [address] [place] [phone] PCP - General Internal Medicine 02/28/23 documented as of this encounter
--- OUTSIDE RECORDS SUMMARY | 2024-08-17 18:13 | XMS_ITS | Encounter Summary ---
Author Organization [employer] Address [address] [facility] 7t [place] [address] Care Team Providers Care Surveillance Sensor Operator Name Role Phone Claudia Astorga MD Primary Care Pro vider Reason for Referral * Consultation (Routine) - Closed Specialty Diagnoses / Procedures Referred By Indio t Referred To Contact Physical Therapy Diagnoses Acute pain of right knee Milady Coppola NP [address] [place] [address] Phone: tel: fax: [facility] [address] [place], [place] Phone: tel: fax: Referral ID Status Reason Start Date Expiration Date V isits Requested Visits Authorized [id number] Closed Specialty Services Required 08/05/2024 08/05/2025 1 1 Encounter Details Date Type Department Care Team (Late st Contact Info) Description 08/05/2024 Orders Only [facility] [address] [place] [address] Milady Coppola NP [address] [place], [place] [phone] Acute pain of right knee (Primary Dx) Social History Tobacco Use Types Packs/Day Years [...] Info) Description 08/19/2024 2:00 PM EST Telemedicine [facility] [address] [place] [phone] 09/02/2024 10:30 AM EDT Office Visit [facility] [address] [place] [phone] Mary [place] FNP [address] [place] [address] 09/07/2024 9:30 AM EDT Medication Management [facility] [address] [place] [phone] Perla Rahman, PharmD [address] [place] [address] Scheduled Referrals Name Type Priority Associated Diagnoses Orde r Schedule Referral to Physical Therapy Outpatient Referral Routine Acute pain of right knee Expected: 08/05/2024 (Approximate), Expires: 08/05/2025 documented as of this encounter Visit Diagnoses Diagnosis Acute pain of right knee- Primary documented in this encounter Additional Health Concerns Assessment Noted Time PHQ-9 Depression Total Score: 19 024 10:08 AM EDT documented as of this encounter Care Teams Surveillance Sensor Operator Relationship Specialty Start Date End Date Claudia Astorga MD [address] [place] [address] PCP - General Internal Medicine 02/28/23 documented as of this encounter
--- OUTSIDE RECORDS SUMMARY | 2024-08-17 18:13 | XMS_ITS | Encounter Summary ---
Author Organization [employer] Address [address] [facility] [address] 7[address] [place] [address] Care Team Providers Care Loom Operator Name Role Phone Claudia Astorga MD Primary Care Pro vider Reason for Visit * Reason Comments nurse visit BP check Encounter Details Date Type Department Care Team (Latest Contact Info) Description 08/12/2024 2:30 PM EST Clinical Support [facility] [address] [place] [address] Heidi Yeh RN Hypertension, unspecified type Social History Tobacco Use Types Packs/Day Years [...] Sign Reading Time Taken Comments Blood Pressure 128/62 08/12/2024 2:35 PM EST con firmed by DANETTE Dasilva Pulse 98 08/12/2024 2:20 PM EST Temperature - - Respiratory Rate 18 08/12/2024 2:20 PM EST Oxygen Saturation 96% 08/12/2024 2:20 PM EST Inhaled Oxygen Concentration - - Weight - - Height - - Body Mass Index - - documented in this encounter Progress Notes * Heidi Yeh RN - 08/12/2024 2:30 PM EST SUBJECTIVE: Shun Enriquez is a 63 y.o. year old male who presents for nurse visit BP check Preferred language for medical information: Azeri Office Clinician needed: No Recommendations at last visit were low salt diet, medication compliance, home BP monitoring. Today, Shun Enriquez does not complain of any blurred vision, shortness of breath, chest pain, dizziness, or headaches. Pt confirms taking amlodipine and losartan today at 6am. He reports occasional chest/lung pain outside in the cold while walking, states it happens when taking a deep breath in in the cold. Denies radiation, states it goes away on its own. Reports 2x episodes of dizziness when transitioning to lay down in recent weeks. Denies any symptoms during visit. Pt takes BP at home intermittently. He showed photos of SBPs ranging from 180- 202 on home BP cuff. States he called the clinic but they just tell me to go to the ED. Pt reports still having pain inright knee and swelling, states its the same as when I went to [facility] , per office note, pt has osteoarthritis in knee. Reports he doesn't drink water but does drink fluids. Pt reports low salt intake.He asked about recent A1C level. BP Readings from Last 4 Encounters: 08/12/24 128/62 08/03/24 (!) 147/78 04/08/24 (!) 163/87 01/29/24 (!) 160/86 Pulse Readings from Last 4 Encounters: 08/12/24 98 08/03/24 94 04/08/24 82 01/29/24 74 OBJECTIVE: Vitals: 08/12/24 0230 08/12/24 1420 08/12/24 1435 BP: 126/78 (!) 180/98 128/62 BP Location: Right arm Left arm Left arm Patient Position: Sitting Sitting Sitting BP Cuff Size: Adult Adult Adult Pulse: 98 Resp: 18 SpO2: 96% ASSESSMENT: Achieve goal blood pressure of <140/90 or <130/80 PLAN: Today's findings reviewed with covering provider Mary [place] NP. Per provider: - continue to take BP at home daily. Record numbers, gave home BP log. Call if readings >150/90 and go to ED if symptoms of hypertension present or if chest pain presents again especially if not with inspirations. Reviewed symptoms with patient, reviewed to take BP 60 min after taking BP meds. - Advised pt if swelling gets worse or pain gets worse than when he went to [facility], to return. Reviewed extended and Saturday hours and NTTS industrial production manager nurse. - Reviewed recent A1C level with pt, discussed diabetic diet. - printed out referral to [facility] Physical [facility]. Shun Enriquez advised to continue taking medications as directed and reinforcement of lifestyle modifications including low sodium diet and exercise were reviewed. Shun Enriquez agreeable to plan discussed at today's visit. Future Appointments Date Time Provider Department Center 08/19/2024 2:00 PM [facility] GREEN TEAM NURSE MEDICINE [facility] 09/02/2024 10:30 AM CEDRIC Luciano MEDICINE [facility] 09/07/2024 9:30 AM Perla Rahman PharmD MEDICINE [facility] Heidi Yeh, RN documented in this encounter Plan of Treatment Upcoming Encounters Date Type Department Care Team (Late st Contact Info) Description 08/19/2024 2:00 PM EST Telemedicine [address] [address] 09/02/2024 10:30 AM EDT Office Visit [address] [address] Mary [place], DIRECTOR OF EDUCATION AND TRAINING [address] [place] [address] 09/07/2024 9:30 AM EDT Medication Management [address] [address] Perla Rahman, Lloyd [address] [place] [phone] documented as of this encounter Visit Diagnoses Diagnosis Hypertension, unspecified type documented in this encounter Additional Health Concerns Assessment Noted Time PHQ-9 Depression Total Score: 19 024 10:08 AM EDT documented as of this encounter Care Teams Loom Operator Relationship Specialty Start Date End Date Claudia Astorga MD [address] [place] [phone] PCP - General Internal Medicine 02/28/23 documented as of this encounter
--- OUTSIDE RECORDS SUMMARY | 2024-08-17 18:13 | XMS_ITS | Encounter Summary ---
Author Organization [employer] Address [address] [facility] [address] [place] [address] Care Team Providers Care Executive Director Contract Shop Name Role Phone Claudia Astorga MD Primary Care Pro vider Reason for Visit * Reason Comments Ankle Pain Encounter Details Date Type Department Care Team (Late st Contact Info) Description 08/17/2024 3:00 PM EST Office Visit [facility] [address] [place], [place] [phone] Acute left ankle pain (Primary Dx); Elevated blood pressure reading in office with diagnosis of hypertension Social History Tobacco Use Types Packs/Day Years [...] Sign Reading Time Taken Comments Blood Pressure 160/91 08/17/2024 3:13 PM EST Pulse 84 08/17/2024 3:13 PM EST Temperature 36.8 ??C (98.3 ??F) 08/17/2024 3:13 PM ES T Respiratory Rate 18 08/17/2024 3:13 PM EST Oxygen Saturation 98% 08/17/2024 3:13 PM EST Inhaled Oxygen Concentration - - Weight 94.3 kg (208 lb) 08/17/2024 3:13 PM EST Height - - Body Mass Index 35.7 04/08/2024 9:22 AM EDT documented in this encounter Plan of Treatment Upcoming Encounters Date Type Department Care Team (Late st Contact Info) Description 08/19/2024 2:00 PM EST Telemedicine [address] [address] 09/02/2024 10:30 AM EDT Office Visit [address] [address] Mary Sanchez, CEDRIC [address] [place] [address] 09/07/2024 9:30 AM EDT Medication Management [address] [address] Perla Rahman PharmD [address] [place] [address] documented as of this encounter Procedures Procedure Name Priority Date/Time Associated Diagnosis Comments XR ANKLE 3+ VIEWS LEFT Routine 08/17/2024 4:04 PM EST Acute left ankle pain documented in this encounter Results * XR Ankle 3+ Views Left (08/17/2024 4:04 PM EST) Anatomical Region Laterality Modality Lower Extremities, Ankle Left Radiogr aphic Imaging 08/17/2024 4:04 PM EST Narrative 08/17/2024 4:35 PM EST ?[facility] ?[address] ?[place] [address] ?XRay Report ? Signed ? Patient: Shun Jeronimo ?MR#: [id number] ?? [id number] ? : 1960 ?Acct:[id number] ? Age/Sex: 63 / M ?ADM Date: 08/17/24 ? Loc: HO.HHCX ? Attending Dr: Milady Coppola ? Ordering Physician: Milady Coppola ?? Date of Service: 08/17/24 ?? Procedure(s): XR ankle LT min 3V ?? Accession Number(s): [id number] ? cc: Milady Coppola ? EXAMINATION: ?? XR ANKLE, LEFT ? CLINICAL INFORMATION: ?? Lateral pain; unable to bear weight; no recalled injury. ? COMPARISON: ?? None available. ? TECHNIQUE: ?? AP, lateral, and mortise views of the left ankle. ? FINDINGS: ?? No definite acute fracture, dislocation, or suspicious bone lesion. ? Ankle mortise is intact. The talar dome is normal. ?? There is an exostosis arising from the lateral tibial metadiaphysis in ?? the region of the interosseous ligament. This may be secondary to old ?? injury. ?? There is a likely healed fracture of the posterior malleolus. ?? The calcaneus, subtalar joints, and hindfoot appear normal. The midfoot ?? appears normal. Normal plantar arch. ? No significant soft tissue swelling identified. Suggestion of an ankle ?? joint effusion on the lateral projection. ? XR/XR ankle LT min 3V ?? IMPRESSION: ?? 1. No acute fracture or dislocation. No acute bony abnormalities. ?? Sequela of old trauma. ?? 2. No soft tissue abnormalities. ?? 3. Probable joint effusion evidenced on the lateral projection. ? Electronically signed by: ??Tereso Lawrence MD ??08/17/2024 04:32 PM EST RP ? Dictated By: ?Terseo Lawrence MD ? Signed By: ?<Electronically signed by Tereso Lawrence MD in OV> ?08/17/24 1632 ? DD/ 1604 ? TD/TT: 08/17/24 1618 ? Laboratory Asst: ? Procedure Note Donotuseinterpreter, Image - 08/17/[address] [address] XRay Report Signed Patient: Kodak Jeronimo#: M [id number] : 1Acct:[id number] Age/Sex: 63 / MADM Date: 08/17/24 [facility] Attending Dr: Milady Coppola Ordering Physician: Milady Coppola Date of Service: 08/17/24 Procedure(s): XR ankle LT min 3V Accession Number(s): [id number] cc: Milady Coppola EXAMINATION: XR ANKLE, LEFT CLINICAL INFORMATION: Lateral pain; unable to bear weight; no recalled injury. COMPARISON: None available. TECHNIQUE: AP, lateral, and mortise views of the left ankle. FINDINGS: No definite acute fracture, dislocation, or suspicious bone lesion. Ankle mortise is intact. The talar dome is normal. There is an exostosis arising from the lateral tibial metadiaphysis in the region of the interosseous ligament. This may be secondary to old injury. There is a likely healed fracture of the posterior malleolus. The calcaneus, subtalar joints, and hindfoot appear normal. The midfoot appears normal. Normal plantar arch. No significant soft tissue swelling identified. Suggestion of an ankle joint effusion on the lateral projection. XR/XR ankle LT min 3V IMPRESSION: 1. No acute fracture or dislocation. No acute bony abnormalities. Sequela of old trauma. 2. No soft tissue abnormalities. 3. Probable joint effusion evidenced on the lateral projection. Electronically signed by: Tereso Lawrence MD 08/17/2024 04:32 PM EST RP Dictated By: Tereso Lawrence MD Signed By: <Electronically signed by Tereso Lawrence MD in OV> 08/17/24 1632 DD/ 1604 TD/TT: 08/17/24 1618 Laboratory Asst: us Milady Appram CONFIGURATION MANAGEMENT SPECIALIST IMG XR PROCEDURES Final Result documented in this encounter Visit Diagnoses Diagnosis Acute left ankle pain- Primary Elevated blood pressure reading in office with diagnosis of hypertension documented in this encounter Additional Health Concerns Assessment Noted Time PHQ-9 Depression Total Score: 19 024 10:08 AM EDT documented as of this encounter Care Teams Executive Director Contract Shop Relationship Specialty Start Date End Date Claudia Astorga MD [address] [place] [address] PCP - General Internal Medicine 02/28/23 documented as of this encounter
--- OUTSIDE RECORDS SUMMARY | 2024-08-17 18:13 | XMS_ITS | Clinical Summary ---
Author Organization 175 [facility] Address 175 [place] [address] Phone Care Team Providers Care Salt Machine Operator Name Role Phone Rg Canseco MD Primary Care Provider + [phone] Allergies No known active allergies Medications ammonium lactate (LAC-HYDRIN) 12 % lotion APPLY TO SOLES OF FEET DAILY. AT NIGHT WEAR SOCKS TO BED 4 Active dulaglutide (Trulicity) 4.5 mg/0.5 mL pen injector injection Inject into the skin. Active insulin glargine (LANTUS) 100 unit/mL injection Inject into the skin. Active amLODIPine (NORVASC) 10 mg tablet Take 1 tablet (10 mg total) by mouth 1 (one) time each day. Active predniSONE (DELTASONE) 20 mg tablet Take 1 tablet (20 mg total) by mouth 1 (one) time each day. Active amitriptyline (ELAVIL) 10 mg tablet Take 1 Tablet by mouth at bedtime. Active gabapentin (NEURONTIN) 100 mg capsule Take 1 capsule (100 mg total) by mouth 1 (one) time each day. Active ciclopirox (PENLAC) 8 % solution Apply daily to nails clean medication residue off of nail plate every 3 days with rubbing alcohol 3 Active Encounters Date Type Department Care Team Description 07/21/2024 2:15 PM EST Office Visit [facility] [address] [phone] Josue Bello DPM Controlled type 2 diabetes with neuropathy (CMS/HCC) (Primary Dx); Lumbosacral radiculopathy; PVD (peripheral vascular disease) (CMS/HCC); Arthritis of both feet 05/19/2024 2:15 PM EST Office Visit [facility] [address] [phone] Josue Bello DPM Controlled type 2 diabetes with neuropathy ([facility]) (Primary Dx); Lumbosacral radiculopathy; PVD (peripheral vascular disease) ([facility]); Arthritis of both feet; Hammertoes of both feet from Last 3 Months Social History Tobacco Use Types Packs/Day Years Used Date Smoking Tobacco: Never Assessed Tobacco Cessation:Counseling Given: Yes Sex and Gender Information Value Date Recorded Sex Assigned at Not on file Legal Sex Male 10:16 PM EST Gender Identity Not on file Sexual Orientation Not on file Obstetrics History Last Filed Vital Signs Vital Sign Reading Time Taken Comments Blood Pressure - - Pulse - - Temperature - - Respiratory Rate - - Oxygen Saturation - - Inhaled Oxygen Concentration - - Weight 90.7 kg (200 lb) 07/21/2024 1:57 PM EST Height 162.6 cm (5' 4.02 ) 05/19/2024 2:06 PM ES T Body Mass Index 34.31 05/19/2024 2:06 PM EST Plan of Treatment Upcoming Encounters Date Type Department Care Team (Late st Contact Info) Description 09/22/2024 1:30 PM EDT Office Visit [facility]opedic [place] [address] [phone] Josue Bello DPM [address] [address] Health Maintenance Due Date Last Done Comments Diabetes: Annual Foot Exam 1970 Diabetes: Annual Retina Eye Exam 1970 RSV Immunization Patients 60+ Years Old (1 - Risk 60-74 years 1-dose series) 2020 Medicare Annual Wellness Visit 05/26/2022 Social Influencers of Health Screening 05/26/2022 Diabetes: Annual Urine Albumin-Creatinine Ratio (uACR) 05/19/2024 Diabetes: Blood Sugar Control Test (HGBA1C) 09/30/2024 04/01/2024, 04/10/2023 Depression Screening 01/28/2025 01/29/2024 Diabetes: Annual GFR (Glomerular Filtration Rate) 04/01/2025 04/01/2024, 04/10/2023 Hypertension/CHF/CAD Annual BMP Blood Test 04/01/2025 04/01/2024, 04/10/2023 Colorectal Cancer Screening: FIT-DNA (Cologuard) 05/13/2026 05/13/2023, 05/13/2023 Cholesterol Screening (Lipid Panel) 04/01/2029 04/01/2024, 04/10/2023 DTaP,Tdap,and Td Vaccines (4 - Td or Tdap) 04/30/2033 04/30/2023, 03/31/2013, 11/11/2008 Hepatitis B Vaccines Completed 03/25/2008, 05/28/2007, 03/20/2007 Hepatitis A Vaccines Aged Out 10/11/2010 No long er eligible based on patient's age to complete this topic Pneumococcal Vaccine: 50+ Years Completed 04/02/2023, 08/25/2013 Pneumococcal Vaccine: Pediatrics (0 to 5 Years) and At-Risk Patients (6 to 64 Years) Completed 04/02/2023, 08/25/2013 HIV Screening Completed 04/10/2023 Hepatitis C Screening Completed 04/10/2023, 023 Zoster Vaccines Completed 07/02/2023, 04/30/2023 COVID-19 Vaccine Completed 04/08/2024, 11/2020, 08/30/2020 Influenza Vaccine Completed 04/08/2024, , 05/02/2015, Additional history exists HIB Vaccines Aged Out No longer eligi ble based on patient's age to complete this topic HPV Vaccines Aged Out No longer eligi ble based on patient's age to complete this topic IPV Vaccines Aged Out No longer eligi ble based on patient's age to complete this topic MMR Vaccines Aged Out No longer eligi ble based on patient's age to complete this topic Meningococcal ACWY Vaccine Aged Out N o longer eligible based on patient's age to complete this topic Meningococcal B Vacine Aged Out No lo nger eligible based on patient's age to complete this topic RSV Immunization Patients Under 20 months Aged Out No longer eligible based on patient's age to complete this topic Varicella Vaccines Aged Out No longer eligible based on patient's age to complete this topic Procedures Procedure Name Priority Date/Time Associated Diagnosis Comments FIT-DNA Routine 05/13/2023 HEPATITIS C SCREENING Routine 04/10/2023 HIV SCREENING Routine 04/10/2023 ANNUAL BMP BLOOD TEST Routine 04/10/2023 HEMOGLOBIN A1C Routine 04/10/2023 LIPID PANEL Routine 04/10/2023 from Last 3 Months or Most Recently Relevant to Health Maintenance Results * FIT-DNA (Cologuard) (05/13/2023) [facility] Colorectal Cancer Screening: FIT-DNA (Cologuard) Abstracted, No Interpretation Result [facility] Provider HEALTH MAINTENANCE Final Result * Annual BMP Blood Test (04/10/2023) Pathologist [facility] Annual BMP Blood Test Abstracted Result [facility] HEALTH MAINTENANCE Final Result * HIV Screening (04/10/2023) [facility] HIV Screening Abstracted Result [facility] HEALTH MAINTENANCE Final Result * Hepatitis C Screening (04/10/2023) [facility] Hepatitis C Screening Abstracted Result [facility] HEALTH MAINTENANCE Final Result * Hemoglobin A1c (04/10/2023) [facility] Hemoglobin A1C 0.0 % Blood Venous blood specimen / Unknown Result [facility] Provider LAB BLOOD ORDERABLES [place] Result * Lipid panel (04/10/2023) [facility] LDL/HDL Ratio 0 Triglycerides 0 mg/dL Cholesterol 0 mg/dL HDL 0 mg/dL LDL Cholesterol 0 mg/dL Blood Venous blood specimen / Unknown us Historical Provider LAB BLOOD ORDERABLES [place] [facility] Result from Last 3 Months or Most Recently Relevant to Health Maintenance Insurance [employer] MEDICARE Member Subscriber Plan / Payer (Ef fective 2016-Present) Name:Shun Enriquez Relation to Subscriber:Self Name:Shun Enriquez Payer ID:[id number] Group ID:[id number] Type:Not on file Address: [place] [address] [address] [phone] Care Teams Salt Machine Operator Relationship Specialty Start Date End Date Rg Cnaseco MD [address] [place] [phone] PCP - General 12/24/23
--- OUTSIDE RECORDS SUMMARY | 2024-08-17 18:13 | XMS_ITS | Encounter Summary ---
Author Organization [employer] Address [address] [facility] [address] [facility] [address] [place] [address] Care Team Providers Care Heel Cementer Machine Name Role Phone Claudia Astorga MD Primary Care Pro vider Reason for Visit * Reason Comments Med Change Request Encounter Details Date Type Department Care Team ([facility] st Contact Info) Description 08/05/2024 Refill [facility] [address] [place], [place] [phone] Arin Verma ANP [address] [place], [place] [phone] Type 2 diabetes mellitus with diabetic neuropathy, with long-term current use of insulin ([facility]) Social History Tobacco Use Types Packs/Day Years [...] Info) Description 08/19/2024 2:00 PM EST Telemedicine [address] [address] 09/02/2024 10:30 AM EDT Office Visit [address] [address] Mary Sanchez, CLOTH MERCERIZER BACK TENDER [address] [place] [address] 09/07/2024 9:30 AM EDT Medication Management [address] [address] Perla Rahman, ChrisD [address] [place] [address] documented as of this encounter Visit Diagnoses Diagnosis Type 2 diabetes mellitus with diabetic neuropathy, with long-term current use of insulin ([facility]) documented in this encounter Additional Health Concerns Assessment Noted Time PHQ-9 Depression Total Score: 19 024 10:08 AM EDT documented as of this encounter Care Teams Heel Cementer Machine Relationship Specialty Start Date End Date Claudia Astorga MD [address] [place] [phone] PCP - General Internal Medicine 02/28/23 documented as of this encounter
--- OUTSIDE RECORDS SUMMARY | 2024-08-17 18:13 | XMS_ITS | Encounter Summary ---
Author Organization [employer] Address 75 [facility] 7t [place] [address] Care Team Providers Care Typesetter Perforator Operator Name Role Phone Claudia Astorga MD Primary Care Pro vider Reason for Visit * Reason Comments Med Refill Encounter Details Date Type Department Care Team ([facility] st Contact Info) Description 08/11/2024 Refill [facility] [address] [place] [address] Claudia Astorga MD [address] [place] [address] Severe persistent asthma with exacerbation Social History Tobacco Use Types Packs/Day Years [...] Info) Description 08/19/2024 2:00 PM EST Telemedicine [address] [address] 09/02/2024 10:30 AM EDT Office Visit [address] [address] Mary Sanchez, POULTRY DRESSING WORKER 505 [place] [address] 09/07/2024 9:30 AM EDT Medication Management [address] [address] Perla Rahman PharmD [address] [place] [address] documented as of this encounter Visit Diagnoses Diagnosis Severe persistent asthma with exacerbation Unspecified asthma, with exacerbation documented in this encounter Additional Health Concerns Assessment Noted Time PHQ-9 Depression Total Score: 19 024 10:08 AM EDT documented as of this encounter Care Teams Typesetter Perforator Operator Relationship Specialty Start Date End Date Claudia Astorga MD [address] [place] [address] PCP - General Internal Medicine 02/28/23 documented as of this encounter
--- OUTSIDE RECORDS SUMMARY | 2024-08-17 18:13 | XMS_ITS | Encounter Summary ---
Author Organization [employer] Address [address] [facility] [address] [place] [address] Care Team Providers Care Hairspring Ii Inspector Name Role Phone Claudia Astorga MD Primary Care Pro vider Encounter Details Date Type Department Care Team (Late st Contact Info) Description 08/06/2024 Telephone [facility] 230 [place], [place] [phone] Milady Coppola NP 230 [place] [address] Social History Tobacco Use Types Packs/Day Years [...] encounter Miscellaneous Notes * Telephone Encounter - Luciana Fields RN - 08/06/2024 11:23 AM EST Rx for compression stockings completed and faxed to [facility]. Scanned to [employer]. ----- Message from Milady Coppola sent at 08/03/2024 5:09 PM EST ----- Please process DME for compression stockings. Thanks documented in this encounter Plan of Treatment Upcoming Encounters Date Type Department Care Team (Late st Contact Info) Description 08/19/2024 2:00 PM EST Telemedicine [facility] [address] [place] [address] 09/02/2024 10:30 AM EDT Office Visit [facility] [address] [place] [address] Mary Sanchez, NEUROLOGY STROKE PHYSICIAN [address] [place] [address] 09/07/2024 9:30 AM EDT Medication Management [facility] [address] [place] [address] Perla Rahman PharmD [address] [place] [phone] documented as of this encounter Visit Diagnoses Not on filedocumented in this encounter Additional Health Concerns Assessment Noted Time PHQ-9 Depression Total Score: 19 024 10:08 AM EDT documented as of this encounter Care Teams Hairspring Ii Inspector Relationship Specialty Start Date End Date Claudia Astorga MD [address] [place] [address] PCP - General Internal Medicine 02/28/23 documented as of this encounter
--- OUTSIDE RECORDS SUMMARY | 2024-08-17 18:13 | XMS_ITS | Encounter Summary ---
Author Organization [facility] Address [id number] [place] [phone] Care Team Providers Care Contact Agent Name Role Phone Rg Canseco MD Primary Care Provider + [phone] Reason for Visit * Reason Comments DM Foot Care Encounter Details Date Type Department Care Team (Late st Contact Info) Description 07/21/2024 2:15 PM EST Office Visit Orthopedic Surgery - [place] [phone] [phone] Josue Bello DPM [address] [phone] Controlled type 2 diabetes with neuropathy (CMS/HCC) (Primary Dx); Lumbosacral radiculopathy; PVD (peripheral vascular disease) (CMS/HCC); Arthritis of both feet Social History Tobacco Use Types Packs/Day Years Used Date Smoking Tobacco: Never Assessed Sex and Gender Information Value Date Recorded Sex Assigned at Not on file Legal Sex Male 10:16 PM EST Gender Identity Not on file Sexual Orientation Not on file documented as of this encounter Last Filed Vital Signs Vital Sign Reading Time Taken Comments Blood Pressure - - Pulse - - Temperature - - Respiratory Rate - - Oxygen Saturation - - Inhaled Oxygen Concentration - - Weight 90.7 kg (200 lb) 07/21/2024 1:57 PM EST Height - - Body Mass Index 34.31 05/19/2024 2:06 PM EST documented in this encounter Progress Notes * Josue Bello DPM - 07/21/2024 2:15 PM EST Referring MD: Ajith Last PCP visit: 04/08/2024 IDENTIFIER: @TITLE@ Mina is a 63 y.o. year old male who presents for consultation. CC: Bilateral foot pain HPI: Patient returns for multiple areas of pain in his legs. Patient states that they have been diabetic for the past few years and has continued tingling numbness and sharp shooting pain to the bilateral lower extremities Denies any history of ulceration, or infection. Patient continues to have pain at the medial lateral border of his great toes bilaterally Patient is not wearing supportive shoes at this time Patient notes that he has dark discoloration throughout the legs bilaterally which seems to be new.Patient relates that he continues to have sharp cramping and increased pain at night with restless leg syndrome Patient with minimal other pedal complaints at this time. Patient's FBS this AM was 145 Recent A1C is %. 6.0 ROS: GENERAL: Pt denies nausea, fever, vomiting, chills, or shortness of breath. Pt in NAD. CARDIOLOGY: pt denies chest pain, palpitations LUNGS: pt denies shortness of breath MUSCULOSKELETAL: See HPI, otherwise no joint pain or swelling, back pain, or muscle pain. SKIN: see HPI, otherwise no lesions, rash or itching NEURO: No persistent headache, weakness or numbness The remainder of the review of systems is noncontributory PAST MEDICAL HISTORY: There is no problem list on file for this patient. SOCIAL HISTORY: Social History Tobacco Use Smoking status: Not on file Smokeless tobacco: Not on file Substance Use Topics Alcohol use: Not on file ACTIVE MEDICATIONS: No outpatient medications have been marked as taking for the 07/21/24 encounter (Office Visit) with Josue Bello DPM. ALLERGIES: @ALL@ PHYSICAL EXAM: Weight 90.7 kg (200 lb). PODIATRIC EXAMINATION: GENERAL: Patient appears well nourished, with NAD. VASCULAR: Dorsalis pedis pulses are 1/4 bilaterally and Posterior tibial pulses are 1/4 bilaterally. Capillary filling time within normal limits the digits. No pallor on elevation or rubor on dependency. No hair growth. Many varicosities. Denies rest pain or claudication pain. Trophic skin changes with shiny skin and hyperpigmentation as well as nail changes NEUROLOGICAL: Sharp/dull sensation diminished, protective sensation diminished on [place]. Multipleperipheral neuropathies bilateral lower extremity ORTHOPEDIC: Good muscle strength 5/5 of all flexors and extensors. Dorsi flexion of ankle ,10 degrees, plantar flexion WNL. No muscle atrophy. Arthritic changes of the tarsometatarsal joint with palpable dorsal exostoses. DERMATOLOGICAL:.Scaliness to the bottoms of the foot without fissuring. Normal skin temperature, normal skin turgor. Discoloration dystrophy with subungual debris to the digits BIOMECHANICS: STJ ROM wnl, MTJ ROM wnl, 1st MPJ ROM wnl. IMPRESSION: 1. Controlled type 2 diabetes with neuropathy (CMS/HCC) 2. Lumbosacral radiculopathy 3. PVD (peripheral vascular disease) (CMS/HCC) 4. Arthritis of both feet PLAN: Pt was seen and examined, history reviewed. Patient educated on his increased sugar level as a possible cause of the neuropathic sensations that are increasing his feet bilaterally. Patient understands that increased sugar also can cause nonhealing wounds and increased risk for amputation Patient continues to have discoloration and fluid overload legs bilaterally. Patient was given prescription for compression socks during today's visit. Patient instructed to use it at all times when going through activities of daily living and weightbearing activity. Patient continues to have ingrowing toenail to the medial lateral border of the great toes bilaterally. Patient instructed to continuously use soaking exercises and manipulation of soft tissue away from the nail plate in order to limit inflammation and flareups. Patient continues to have findings associated with neuropathy to bilateral feet. Patient was educated on the use of topicals in order to limit the symptoms associated with diabetic neuropathy. Patient also instructed to control his sugar as well as possible in order to limit the increased symptomatic neuropathic pain Patient to continue with topical antifungal medication to the nails. Patient understands that this is low the risk for liver toxicity is also low. Josue Bello DPM documented in this encounter Plan of Treatment Upcoming Encounters Date Type Department Care Team (Late st Contact Info) Description 09/22/2024 1:30 PM EDT Office Visit Orthopedic Surgery - [place] [address] [phone] Josue Bello DPM 175 [facility] [address] [place] [address] documented as of this encounter Visit Diagnoses Diagnosis Controlled type 2 diabetes with neuropathy (CMS/HCC)- Primary Type II or unspecified type diabetes mellitus with neurological manifestations, not stated as uncontrolled Lumbosacral radiculopathy Thoracic or lumbosacral neuritis or radiculitis, unspecified PVD (peripheral vascular disease) ([facility]) Unspecified peripheral vascular disease Arthritis of both feet documented in this encounter Care Teams Contact Agent Relationship Specialty Start Date End Date Rg Canseco MD [address] [place] [phone] PCP - General 12/24/23 documented as of this encounter
--- OUTSIDE RECORDS SUMMARY | 2024-08-17 18:13 | XMS_ITS | Encounter Summary ---
Author Organization [employer] Address [address] [place] [address] Care Team Providers Care Global Manager Name Role Phone Claudia Astorga MD Primary Care Pro vider Reason for Visit * Reason Onset Date Comments Appointment Request 08/05/2024 Encounter Details Date Type Department Care Team ([facility] st Contact Info) Description 08/05/2024 Refill [facility] [address] [place] [address] Casie Yeh RN Type 2 diabetes mellitus with diabetic neuropathy, with long-term current use of insulin ([facility]) Social History Tobacco Use Types Packs/Day Years [...] as of this encounter Miscellaneous Notes * Addendum Note - Casi Turcios LPN - 08/06/2024 10:00 AM ESTAddended by: CASI TURCIOS on: 08/06/2024 10:00 AM Modules accepted: Orders * Telephone Encounter - Casi Turcios LPN - 08/06/2024 10:00 AM EST Per pharmacy; LIMITING TO 3X/DAY OR COPAY. * Addendum Note - Casie Yeh RN - 08/06/2024 9:25 AM ESTAddended by: CASIE YEH on: 08/06/2024 09:25 AM Modules accepted: Orders * Telephone Encounter - Casie Yeh RN - 08/06/2024 9:17 AM EST Received message from [facility] pharmacy that pt also needs Freestyle Lite glucometer and trueplus lancets. PT already using CGM in interim. Queued to covering provider. * Telephone Encounter - Casie Yeh RN - 08/05/2024 9:00 AM EST Images from the original note were not included. Telephone call to pt to schedule nurse visit for BP check, scheduled for 08/12/24. Per provider request, scheduled pt for 09/02/24 1 month follow up regarding bilateral lower extremity edema. Pt stated that he went to [facility] pharmacy yesterday and was told he would have to pay roughly $70 for CGM sensors and test strips. Called pharmacy, spoke with Manjula who stated that the pt paid $0 for his sensors on 07/22/24 and believe that the copay would also be $0 on 08/12 when he is eligible to picker again. Pharmacy also recommended pt switching test strip brand to one covered by [employer]. Pt reports using regular glucometer, Freestyle Lite on file, queued Freestyle Lite test strips to covering provider, advised pt to picker tomorrow. Explained to pt that if CGM sensor falls off before insurance will cover next script, to call company to request replacement. Pt verbalized understanding, in agreement with plan. -- KEN [facility] Team Nurses Ravinder, I saw this patient in walk-in center for knee pain, but noted to have bilateral lower extremity. I ordered compression stocking for him. Please schedule him a RN visit for BP check and follow-up with PCP. Thank you documented in this encounter Plan of Treatment Upcoming Encounters Date Type Department Care Team (Late st Contact Info) Description 08/19/2024 2:00 PM EST Telemedicine [address] [address] 09/02/2024 10:30 AM EDT Office Visit [address] [address] Mary Sanchez, CEDRIC [address] [place] [address] 09/07/2024 9:30 AM EDT Medication Management [address] [address] Perla Rahman, PharmD [address] [place] [phone] documented as of this encounter Visit Diagnoses Diagnosis Type 2 diabetes mellitus with diabetic neuropathy, with long-term current use of insulin ([facility]) documented in this encounter Additional Health Concerns Assessment Noted Time PHQ-9 Depression Total Score: 19 024 10:08 AM EDT documented as of this encounter Care Teams Global Manager Relationship Specialty Start Date End Date Claudia Astorga MD [address] [place] [address] PCP - General Internal Medicine 02/28/23 documented as of this encounter
--- OUTSIDE RECORDS SUMMARY | 2024-08-17 18:13 | XMS_ITS | Encounter Summary ---
Author Organization [employer] Address [address] [place] [address] Care Team Providers Care X Ray Equipment Mechanic Name Role Phone Claudia Astorga MD Primary Care Pro vider Encounter Details Date Type Department Care Team (Late st Contact Info) Description 08/05/2024 Telephone [facility] [address] [place], [place] [phone] Milady Coppola NP [address] [place] [address] Social History Tobacco Use Types Packs/Day Years [...] encounter Miscellaneous Notes * Telephone Encounter - Ange Sampson RN - 08/05/2024 1:47 PM EST TC placed to pt regarding message below per Milady Coppola PATROL COMMANDER. Pt verbalized understanding and in agreement to continue with plan of care as discussed during visit with provider. Pt informed may receive a message or TC regarding PT referral. Pt verbalized understanding. Pt advised to call [facility] with any questions or concerns; none expressed at this time. Pt to F/U as needed. ----- Message from Milady Coppola sent at 08/05/2024 12:56 PM EST ----- Please call and inform patient of X-ray results that reveal severe arthritis. Plan as discussed during visit. I have also placed PT referral documented in this encounter Plan of Treatment Upcoming Encounters Date Type Department Care Team (Late st Contact Info) Description 08/19/2024 2:00 PM EST Telemedicine [facility] [address] [place] [phone] 09/02/2024 10:30 AM EDT Office Visit [facility] [address] [place] [address] Mary Sanchez, SYSTEM SUPPORT ANALYST [address] [place] [address] 09/07/2024 9:30 AM EDT Medication Management [facility] [address] [place] [address] Perla Rahman, ChrisD [address] [place], [place] [phone] documented as of this encounter Visit Diagnoses Not on filedocumented in this encounter Additional Health Concerns Assessment Noted Time PHQ-9 Depression Total Score: 19 024 10:08 AM EDT documented as of this encounter Care Teams X Ray Equipment Mechanic Relationship Specialty Start Date End Date Claudia Astorga MD 230 [place] [address] PCP - General Internal Medicine 02/28/23 documented as of this encounter
--- OUTSIDE RECORDS SUMMARY | 2024-08-17 18:13 | XMS_ITS ---
Author Organization [facility] Address [address] [place] [address] Care Team Providers Care Radio Adjuster Name Role Phone PARAM BELLAMY MD Primary Care Provider Unavaila Mich Lora [phone] REASON FOR VISIT [facility] Encounters Encounter Location Date Provider Diagnosis [facility] [address] [place] [address] 09/01/2023 Mich Grossman PLAN OF TREATMENT No Information
--- OUTSIDE RECORDS SUMMARY | 2024-08-17 18:13 | XMS_ITS | Encounter Summary ---
Author Organization [facility] Address [address] [place] [address] Care Team Providers Care Part Time Receptionist Name Role Phone Claudia Astorga MD Primary Care Pro vider Reason for Visit * Reason Comments Med Refill Encounter Details Date Type Department Care Team ([facility] st Contact Info) Description 10/09/2023 Refill [facility] [address] [place], [place] [phone] Barrington Dunbar AGNP Social History Tobacco Use [...] encounter Miscellaneous Notes * Telephone Encounter - Claudia Holloway MD - 10/09/2023 6:14 PM EDT Duoneb nbz was prescribed yesteraday documented in this encounter Plan of Treatment Upcoming Encounters Date Type Department Care Team (Late st Contact Info) Description 08/19/2024 2:00 PM EST Telemedicine [address] [address] 09/02/2024 10:30 AM EDT Office Visit [address] [address] Mary Sanchez, RESAW MACHINE OPERATOR [address] [place] [address] 09/07/2024 9:30 AM EDT Medication Management [address] [address] Perla Rahman PharmD [address] [place] [phone] documented as of this encounter Visit Diagnoses Not on filedocumented in this encounter Care Teams Part Time Receptionist Relationship Specialty Start Date End Date Claudia Astorga MD [address] [place] [phone] PCP - General Internal Medicine 02/28/23 documented as of this encounter
--- OUTSIDE RECORDS SUMMARY | 2024-08-17 18:13 | XMS_ITS | Clinical Summary ---
Author Organization [employer] Address [address] [facility] [address] [place] [address] Care Team Providers Care Steamfitter Apprentice Name Role Phone Claudia Astorga MD Primary Care Pro vider Allergies Active Allergy Reactions Criticality Noted Date Comments Metformin Other 05/01/2023 Off metformin for GI SE Medications * This document contains information received from the source organization and may not represent a complete record from that organization. Blood Glucose Monitoring Suppl (FreeStyle Lite) w/Device kitIndications: Newly diagnosed diabetes ([facility]) 1 strip 2 times daily. 1 kit 023 Active glucose 4 g chewable tabletIndicatio ns:Newly diagnosed diabetes ([facility]) Chew 4 tablets (16 g) if needed for low blood sugar. 50 tablet 12 023 Active methadone (Dolophine) 10 MG/5ML solution Take 95 mg by mouth. Current dose 105 mg per pt Active albuterol 1.25 MG/3ML nebulizer solution INHALE 2 AMPULE USING A NEBULIZER EVERY 6 HOURS NEEDED FOR WHEEZING 90 mL 1 023 Active naloxone (Narcan) 4 mg/0.1 mL nasal spray FOR SUSPECTED OPIOID OVERDOSE. SPRAY 0.1mL IN ONE NOSTRIL. REPEAT IN ALTERNATE NOSTRIL 2-3 MINUTES IF NEEDED. SEEK MEDICAL ATTENTION IMMEDIATELY EVEN IF PATIENT RESPONDS. 2 each 1 023 Active amLODIPine (Norvasc) 5 MG tabletIndicatio ns:Hypertension , unspecified type Take 1 tablet (5 mg) by mouth in the morning. 90 tablet 023 Active dapagliflozin (Farxiga) 10 MG Take 1 tablet (10 mg) by mouth in the morning. 90 tablet 023 Active atorvastatin (Lipitor) 10 MG tablet Take 1 tablet (10 mg) by mouth in the morning. 90 tablet 023 Active baclofen (Lioresal) 10 MG tabletIndicatio ns:Right leg pain TAKE 1 TABLET BY MOUTH THREE TIMES DAILY NEEDED FOR MUSCLE SPASMS 60 tablet 023 Active amitriptyline (Elavil) 10 MG tabletIndicatio ns:Right leg pain TAKE 1 TABLET BY MOUTH AT BEDTIME 30 tablet 1 024 Active Spacer/Aero-Hol ding Chambers (OptiChamber Jacey) misc 1 each every 4 (four) hours if needed (asthma). 1 each 024 Active Misc. Devices (Pulse Oximeter For Finger) misc 1 each 2 times daily. Should read 95% or above. 1 each 024 Active Nebulizers misc 1 each every 6 (six) hours if needed (cough). Use with nebulizer liquid every 6 hours as needed for asthma exacerbation and cough 1 each 024 Active Continuous Glucose Accounts Receivable Executive (FreeStyle Shaneka 2 Almyra) deviceIndicatio ns:Type 2 diabetes mellitus with diabetic neuropathy, with long-term current use of insulin ([facility]) USE TO CHECK BLOOD SUGAR EVERY 8 HOURS 1 each 024 Active Alcohol Swabs (Alcohol Prep) 70 % pads USE DIRECTED DAILY AT BEDTIME 100 each 11 024 Active senna-docusate sodium (Senokot-S) 8.6-50 MG tablet Take 1 tablet by mouth Once per day. 30 tablet 3 024 2024 Active buPROPion XL (Wellbutrin XL) 300 MG 24 hr tablet Take 300 mg by mouth in the morning. Active cloNIDine (Catapres) 0.1 MG tablet TAKE 1 TABLET BY MOUTH ONCE DAILY NEEDED Active gabapentin (Neurontin) 400 MG capsule Take 1 capsule (400 mg) by mouth at bedtime. 30 capsule 11 024 2024 Active Trelegy Ellipta 200-62.5-25 MCG/ACT aerosol powder INHALE 1 PUFF BY MOUTH EVERY DAY AT THE SAME TIME IN THE MORNING 60 each 3 024 Active TechLite Plus Pen [place] 32G X 4 MM misc USE DIRECTED WITH INSULIN AT BEDTIME 100 each 3 024 Active Ozempic, 1 MG/DOSE, 4 MG/3ML solution pen-injectorInd ications:Type 2 diabetes mellitus without complication, without long-term current use of insulin ([facility]) Inject 1 MG SUBCUTANEOUSLY EVERY 7 DAYS IN THE ABDOMEN, THIGHS OR UPPER ARM. ROTATE INJECTION SITES. ICD10= 3 mL 11 Active Continuous Glucose Sensor (FreeStyle Shaneka 2 Sensor) miscIndications :Type 2 diabetes mellitus with diabetic neuropathy, with long-term current use of insulin ([facility]) Use as directed to monitor glucose ever 8 hours. Replace sensor every 14 days. 2 each 11 Active albuterol 108 (90 Base) MCG/ACT inhaler INHALE 2 PUFFS BY MOUTH EVERY 6 HOURS NEEDED FOR WHEEZING OR SHORTNESS OF BREATH 8.5 g 3 Active OneTouch Ultra Test test stripIndication s:Newly diagnosed diabetes ([facility]) USE DIRECTED TO TEST BLOOD SUGAR FOUR TIMES DAILY 100 strip 11 Active Lancets (OneTouch Delica Plus Eyifvw16G) miscIndications :Newly diagnosed diabetes ([facility]) USE DIRECTED TO TEST BLOOD SUGAR FOUR TIMES DAILY 100 each 11 024 Active montelukast (Singulair) 10 MG tablet TAKE 1 TABLET BY MOUTH EVERY EVENING 90 tablet 1 Active polyethylene glycol, PEG, 3350 (MiraLax) 17 GM/SCOOP powder 17 grams in 8-12 oz fluid like water at bedtime prn constipation 527 g 2 024 Active losartan (Cozaar) 100 MG tablet TAKE 1 TABLET BY MOUTH EVERY MORNING 90 tablet Active famotidine (Pepcid) 20 MG tablet TAKE 1 TABLET BY MOUTH AT BEDTIME NEEDED FOR HEARTBURN 30 tablet 2 024 Active Diclofenac Sodium 1 % gelIndications: Acute pain of right knee Apply 1 g topically if needed in the morning, at noon, and at bedtime (pain). 100 g 1 025 2024 Active TRUEplus Lancets 33G miscIndications :Type 2 diabetes mellitus with diabetic neuropathy, with long-term current use of insulin ([facility]) Use to check blood sugar up to 3 times daily 100 each 11 025 Active Blood Glucose Monitoring Suppl (FreeStyle Dudley Lite) w/Device kitIndications: Type 2 diabetes mellitus with diabetic neuropathy, with long-term current use of insulin ([facility]) Use to test blood sugar up to 3 times daily 1 kit 025 Active glucose blood (FREESTYLE LITE) test stripIndication s:Type 2 diabetes mellitus with diabetic neuropathy, with long-term current use of insulin ([facility]) USE TO TEST BLOOD SUGAR THREE TIMES A DAY 100 each 11 025 2025 Active ipratropium-alb uterol (Duo-Neb) 0.5-2.5 mg/3 mL nebulizer solutionIndicat ions:Severe persistent asthma with exacerbation INHALE 1 AMPULE USING A NEBULIZER EVERY 6 HOURS NEEDED FOR COUGH, WHEEZING, OR SHORTNESS OF BREATH 180 mL 2 025 Active ibuprofen 600 MG tabletIndicatio ns:Acute left ankle pain Take 1 tablet (600 mg) by mouth every 6 (six) hours if needed for mild pain for up to 14 days. 56 tablet 025 2024 Active ipratropium-alb uterol (Duo-Neb) 0.5-2.5 mg/3 mL nebulizer solutionIndicat ions:Severe persistent asthma with exacerbation INHALE 1 AMPULE USING A NEBULIZER EVERY 6 HOURS NEEDED FOR WHEEZING 180 mL 2 024 2024 Discontinued FREESTYLE LITE test stripIndication s:Type 2 diabetes mellitus with diabetic neuropathy, with long-term current use of insulin ([facility]) USE DIRECTED TO TEST BLOOD SUGAR FOUR TIMES DAILY 100 each 12 025 2024 Discontinued(R eorder (will not trigger notification to Pharmacy)) Active Problems Problem Noted Date Diagnosed Date Grief reaction with prolonged bereavement 2023 GERD (gastroesophageal reflux disease) Periodontal disease 10/09/2023 MALATHI (obstructive sleep apnea) 05/01/2023 Diabetes due to undrl condition w oth diabetic n euro comp 04/03/2023 Health care maintenance 04/03/2023 Phimosis of penis 04/03/2023 Renal cyst, left 04/03/2023 Peripheral neuropathy 04/03/2023 Venous insufficiency of both lower extremities 0 01/04/2023 Class 1 obesity due to exces s calories with body mass index (BMI) of 33.0 to 33.9 in adult 08/08/2022 Severe persistent asthma 07/05/2022 Hypertension 07/05/2022 Assessment & Plan (09/07/2022 12:55 PM EDT): BP still not controlled, he also lost his BP log. Added amlodipine 5mg Counseled low-salt diet, advised increase in exercise to 30 min/ day most days, weight loss if applicable. call clinic for high BP >170/90 or low <90/60. F/up 2 weeks for BP/DM2 Depression, recurrent 07/05/2022 Opioid dependence 07/05/2022 Chronic constipation 07/05/2022 Psoriasis 07/30/2012 Resolved Problems Problem Noted Date Diagnosed Date Resolved Date Moderate persistent asthma w ith acute exacerbation 05/28/2022 07/05/2022 Encounters Date Type Department Care Team Description 08/17/2024 3:00 PM EST Office Visit [facility] [address], [place] [phone] Acute left ankle pain (Primary Dx); Elevated blood pressure reading in office with diagnosis of hypertension 08/12/2024 2:30 PM EST Clinical Support [facility] [address], [place] [phone] Heidi Yeh RN Hypertension, unspecified type 08/12/2024 Travel 08/11/2024 Refill [facility] [address], [place] [phone] Claudia Astorga MD Severe persistent asthma with exacerbation 08/06/2024 Telephone [facility] [address], [place] [phone] Milady Coppola NP 08/05/2024 Refill [facility] [address] [place] [address] Arin Verma, SYMONE Type 2 diabetes mellitus with diabetic neuropathy, with long-term current use of insulin ([facility]) 08/05/2024 Telephone [facility] [address] [place] [address] Milady Coppola NP 08/05/2024 Orders Only [facility] [address] [place] [phone] Milady Coppola NP Acute pain of right knee (Primary Dx) 08/05/2024 Refill [facility] [address] [place] [address] Heidi Yeh RN Type 2 diabetes mellitus with diabetic neuropathy, with long-term current use of insulin ([facility]) 08/03/2024 3:40 PM EST Office Visit [facility] [address] [place] [address] Milady Coppola NP Acute pain of right knee (Primary Dx); Leg cramping; Lower leg edema; Elevated blood pressure reading in office with diagnosis of hypertension; Wheezing 06/19/2024 Refill [facility] [address] [place] [address] Claudia Astorga MD 06/19/2024 Refill [facility] [address] [place] [address] Claudia Astorga MD 06/16/2024 Refill [facility] [address] [place] [address] Claudia Astorga MD 05/29/2024 Telephone [facility] [address] [place] [phone] Claudia Astorga MD No Show 05/26/2024 Telephone [facility] [address] [place] [phone] Adan Gaona MA DM APPROVAL 05/19/2024 Telephone [facility] [address] [place] [phone] Jeanine Pollock MA chart prep 05/18/2024 Refill [facility] [address] [place] [address] Claudia Astorga MD from Last 3 Months Immunizations Name Administration Dates Next Due Hep A, Adult 10/11/2010 Hep B, adult 03/25/2008,05/28/2007,03/20/2007 Influenza injectable quadriv alent IIV4 with preservative 05/02/2015 Influenza injectable quadriv alent preservative free 04/02/2023 Influenza, IIV3, injectable 03/18/2014, 1,03/20/2007 Influenza, Split (incl. adriano fied surface antigen) 03/31/2013 Influenza, seasonal, injecta ble, preservative free 04/08/2024 Pfizer Covid-19 Vaccine 12+ 04/08/2024 Pneumococcal Conjugate PCV 20 04/02/2023 Pneumococcal Polysaccharide PPSV23 08/25/2013 TD (adult), 2 Lf tetanus tox oid, preservative free, adsorbed 11/11/2008 Tdap 04/30/2023,03/31/2013 Zoster, Recombinant 07/02/2023,04/30/2023 Family History Medical History Relation Name Comments Dm2 Brother Breast cancer Mother DM2 Mother DM2 Sister Relation Name Status Comments Brother Mother Sister Social History Tobacco Use Types Packs/Day Years Used Date Smoking Tobacco: Never Passive Smoke Exposure: Never Smokeless Tobacco: Never Tobacco Cessation:Counseling Given: Not Answered Alcohol Use Standard Drinks/Week Comments Never 0 [...] Orientation Straight 04/23/2022 10 :19 AM EDT Last Filed Vital Signs Vital Sign Reading Time Taken Comments Blood Pressure 160/91 08/17/2024 3:13 PM EST Pulse 84 08/17/2024 3:13 PM EST Temperature 36.8 ??C (98.3 ??F) 08/17/2024 3:13 PM ES T Respiratory Rate 18 08/17/2024 3:13 PM EST Oxygen Saturation 98% 08/17/2024 3:13 PM EST Inhaled Oxygen Concentration - - Weight 94.3 kg (208 lb) 08/17/2024 3:13 PM EST Height 162.6 cm (5' 4 ) 04/08/2024 9:22 AM EDT Body Mass Index 35.7 04/08/2024 9:22 AM EDT Plan of Treatment Upcoming Encounters Date Type Department Care Team (Late st Contact Info) Description 08/19/2024 2:00 PM EST Telemedicine [facility] [address] [place] [phone] 09/02/2024 10:30 AM EDT Office Visit [facility] [address] [place] [phone] Mary Sanchez, CEDRIC [address] [place] [phone] 09/07/2024 9:30 AM EDT Medication Management [facility] [address] [place] [phone] Perla Rahman, Lloyd [address] [place] [phone] Health Maintenance Due Date Last Done Comments CT Colonography 1960 Colonoscopy 1960 Dental Prophylaxis 1960 FIT 1960 FOBT 1960 Sigmoidoscopy 1960 Diabetes: Foot Exam 1970 Eye Exam 1970 Alcohol/Substance Use Screening 1972 RSV Patients and Patients Aged 60 years or older (1 - Risk 60-74 years 1-dose series) 2020 Dental Oral Exam 03/05/2024 09/02/2023, 03/05/2018 Diabetes: Urine Protein Screening 04/10/2024 04/10/2023 Diabetes: Hemoglobin A1C 07/02/2024 024, 04/10/2023, 04/02/2023, Additional history exists Depression Monitoring (PHQ-9) 07/31/2024 01/29/2024, 01/29/2024 Dental X-Ray: Bitewings 09/02/2024 09/02/19 24, 03/05/2018, 01/21/2018 Depression Screening 01/28/2025 01/29/2024, 01/29/20 24 SDOH Screening 01/28/2025 01/29/2024 Lipid Panel 04/01/2025 04/01/2024, 04/10/2023 Tobacco Screening 08/03/2025 08/03/2024 Colorectal Cancer Screening 05/13/2026 FIT DNA/Cologuard 05/13/2026 05/13/2023 Dental X-Ray: Full Mouth 09/02/2026 09/02/2023, 02/22 DTaP/Tdap/Td Vaccines (3 - Td or Tdap) 04/30/2033 04/30/2023, 03/31/2013, 11/11/2008 Hepatitis B Vaccines Completed 03/25/2008, 05/28/2007, 03/20/2007 Hepatitis A Vaccines Aged Out 10/11/2010 No long er eligible based on patient's age to complete this topic Pneumococcal Vaccine: 50+ Years Completed 04/02/2023, 08/25/2013 HIV Screening Completed 04/10/2023, 06/22/2021 Hepatitis C Screening Completed 04/10/2023, 021 Zoster Vaccines Completed 07/02/2023, 04/30/2023 COVID-19 Vaccine [...] patient's age to complete this topic Meningococcal Vaccine Aged Out No dede meenakshi eligible based on patient's age to complete this topic RSV under 20 months Aged Out No longe r eligible based on patient's age to complete this topic Rotavirus Vaccines Aged Out No longer eligible based on patient's age to complete this topic Procedures Procedure Name Priority Date/Time Associated Diagnosis Comments XR ANKLE 3+ VIEWS LEFT Routine 08/17/2024 4:04 PM EST Acute left ankle pain XR KNEE 4+ VIEWS RIGHT Routine 08/03/2024 4:11 PM EST Acute pain of right knee HEMOGLOBIN A1C Routine 04/01/2024 12:15 PM EDT Type 2 diabetes mellitus without complication, without long-term current use of insulin (CMS/HCC) LIPID PANEL, STANDARD Routine 04/01/2024 12:15 PM EDT Type 2 diabetes mellitus without complication, without long-term current use of insulin (CMS/HCC) INTRAORAL - COMPLETE SERIES OF RADIOGRAPHIC IMAGES Routine 09/02/2023 8:00 AM EDT PERIODIC ORAL EVALUATION - ESTABLISHED PATIENT Routine 09/02/2023 8:00 AM EDT LAB COLOGUARD?? COLON CANCER SCREEN Routine 05/13/2023 1:41 PM EST Colon cancer screening HEPATITIS C AB W/REFL TO HCV RNA, QN, PCR Routine 04/10/2023 10:54 AM EDT Annual physical exam HIV ANTIBODY/ANTIGEN ([facility]) Routine 04/10/2023 10:54 AM EDT ALBUMIN, RANDOM URINE W/CREATININE Routine 04/10/2023 10:54 AM EDT from Last 3 Months or Most Recently Relevant to Health Maintenance Results * XR Ankle 3+ Views Left (08/17/2024 4:04 PM EST) Anatomical Region Laterality Modality Lower Extremities, Ankle Left Radiogr aphic Imaging 08/17/2024 4:04 PM EST Narrative 08/17/2024 4:35 PM EST ?[facility] ?[address] ?[place] [address] ?XRay Report ? Signed ? Patient: Shun Jeronimo ?MR#: M ?? [id number] ? : 1960 ?Acct:[id number] ? Age/Sex: 63 / M ?ADM Date: 08/17/24 ? Loc: HO.HHCX ? Attending DrFabian Coppola ? Ordering Physician: Milady Coppola ?? Date of Service: 08/17/24 ?? Procedure(s): XR ankle LT min 3V ?? Accession Number(s): [id number] ? cc: Milady Coppola ? EXAMINATION: ?? [...] Lawrence MD ??08/17/2024 04:32 PM EST RP ?? [id number] ? Dictated By: ?Tereso Lawrence MD ? Signed By: ?<Electronically signed by Tereso Lawrence MD in OV> ?08/17/24 1632 ? DD/ 1604 ? TD/TT: 08/17/24 1618 ? Prior Authorization Nurse: ? Procedure Note Donartiinterpreter, Image - 08/17/2024 [place] [id number] XRay Report Signed Patient: Kodak Jeronimo#: M [id number] : 1Acct:[id number] Age/Sex: 63 / MADM Date: 08/17/24 Loc: .HHCX Attending Dr: Milady Coppola Ordering Physician: Milady Coppola Date of Service: 08/17/24 Procedure(s): XR ankle LT min 3V Accession Number(s): [id number] cc: Milady Coppola EXAMINATION: XR ANKLE, LEFT [...] Tereso Lawrence MD 08/17/2024 04:32 PM EST Dictated By: Tereso Lawrence MD Signed By: <Electronically signed by Tereso Lawrence MD in OV> 08/17/24 1632 DD/ 1604 TD/TT: 08/17/24 1618 Prior Authorization Nurse: us Milady Appram ICD 9 CODER IMG XR PROCEDURES Final Result * XR Knee 4+ Views Right (08/03/2024 4:11 PM EST) Anatomical Region Laterality Modality Lower Extremities, Knee Right Radiogra phic Imaging 08/03/2024 4:11 PM EST Narrative 08/04/2024 8:51 AM EST ?[facility] ?[address] ?[place] [address] ?XRay Report ? Signed ? Patient: Shun Jeronimo ?MR#: M ?? [id number] ? : 1960 ?Acct:[id number] ? Age/Sex: 63 / M ?ADM Date: 08/03/24 ? Loc: HO.HHCX ? Attending DrFabian Coppola ? Ordering Physician: Milady Coppola ?? Date of Service: 08/03/24 ?? Procedure(s): XR knee RT 4V ?? Accession Number(s): [id number] ? cc: Milady Coppola ? EXAMINATION: ??XR [...] DD/ 1611 ? TD/TT: 08/03/24 1615 ? Prior Authorization Nurse: ? Procedure Note David, Rishabh - 08/04/[address] [address] XRay Report Signed Patient: Shun JeronimoMR#: M [id number] : 1960cct:[id number] Age/Sex: 63 / MADM Date: 08/03/24 Loc: HO.HHCX Attending Dr: Milady Coppola Ordering Physician: Milady Coppola Date of Service: 08/03/24 Procedure(s): XR knee RT 4V Accession Number(s): [id number] cc: Milady Coppola EXAMINATION: XR KNEE 4 [...] Mich Higuera MD 08/04/2024 08:48 AM EST Dictated By: Mich Higuera MD Signed By: <Electronically signed by Mich Higuera MD in OV> 08/04/24 0848 DD/ TD/TT: 08/03/24 161 Prior Authorization Nurse: Milady Coppola ICD 9 CODER IMG XR PROCEDURES Final Result * Hemoglobin A1c (04/01/2024 12:15 PM EDT) Hemoglobin A1c 6.0 <6.0 % [facility] Comment:Hemoglobin A1C Refer ence Range Adults: 4.8 - 6.0 % Non diabetic: < 6.0 % Goal: < 7.0 %Additional Action Suggested: > 8.0 %Note: Hemoglobin A1c results are invalid for patients with abnormal amounts of HbF. Blood transfusions may impact the HbA1c concentration in the patient sample. Estimated Average Glucose 126 mg/dL [facility] Comment:eAG = Estimated ave rage glucose which is %A1C expressed asaverage glucose, using the formula of the Z8I-CoebhlpNgcgghl Glucose study (ADAG), Diabetes Care, Vol.31,#8,Jan. 2007 Blood Venous blood specimen / Unknown 04/01/2024 12:15 PM EDT 04/01/2024 1:39 PM EDT Claudia Holloway MD LAB BLOOD ORDERAB LES Final Result [facility] [address] [place] [phone] * (ABNORMAL) Lipid Panel, Standard (04/01/2024 12:15 PM EDT) Triglycerides 158(H) <150 mg/dL [facility] Comment:Desirable Triglyceri de: less than 150 mg/dLBorderline High Triglyceride 150-199 mg/dLHigh Triglyceride: 200-499 mg/dLVery High Triglyceride: greater than or equal to 5OO mg/dL Cholesterol 171 <200 mg/dL [facility] Comment:Desirable Cholestero l: less than 200 mg/dLBorderline High Cholesterol: 200-239 mg/dLHigh Cholesterol: greater than 239 mg/dL LDL Cholesterol Calculated 96 <100 mg/dL [facility] Comment:Desirable LDL: less than 100 mg/dLNear Optimal/Above Optimal LDL: 110- 129 mg/dLBorderline High LDL: 130-159 mg/dLHigh LDL: 160-189 mg/dLVery High LDL: greater than or equal to 190 mg/dL HDL Cholesterol 44 >40 mg/dL [facility] Comment:Desirable HDL: great er than 40 mg/dL Note: This HDL assay may give artificially low results in patients with liver disease. Blood Venous blood specimen / Unknown 04/01/2024 12:15 PM EDT 04/01/2024 1:39 PM EDT Claudia Holloway MD LAB BLOOD ORDERAB LES Final Result [facility] [address] [place] [phone] * (ABNORMAL) Cologuard?? colon cancer screening (05/13/2023 1:41 PM EST) Cologuard Result Positive( A) Negative 05/24/2023 5:43 AM EST [facility] (CLIA #:[id number]) Comment: POSITIVE TEST RESULT. A positive Cologuard result should be followed with a colonoscopy or visual examination of the colon. The normal value (reference range) for this assay is negative. TEST DESCRIPTION: Composite algorithmic analysis of stool DNA-biomarkers with hemoglobin immunoassay. ?? Quantitative values of individual biomarkers are not reportable and are not associated with individual biomarker result reference ranges. Cologuard is intended for colorectal cancer screening of adults of either sex, 45 years or older, who are at average-risk for colorectal cancer (CRC). Cologuard has been approved for use by the U.S. FDA. The performance of Cologuard was established in a cross sectional study of average-risk adults aged 50-84. Cologuard performance in patients ages 45 to 49 years was estimated by sub-group analysis of near-age groups. Colonoscopies performed for a positive result may find as the most clinically significant lesion: colorectal cancer [4.0%], advanced adenoma (including sessile serrated polyps greater than or equal to 1cm diameter) [20%] or non- advanced adenoma [31%]; or no colorectal neoplasia [45%]. These estimates are derived from a prospective cross-sectional screening study of 10,000 individuals at average risk for colorectal cancer who were screened with both Cologuard and colonoscopy. (Fermin Claudio al, N Engl J Med 2014;370(14):4697-6304.) Cologuard may produce a false negative or false positive result (no colorectal cancer or precancerous polyp present at colonoscopy follow up). A negative Cologuard test result does not guarantee the absence of CRC or advanced adenoma (pre-cancer). The current Cologuard screening interval is every 3 years. ([employer] [employer] and U.S. Multi-Society Task Force). Cologuard performance data in a 10,000 patient pivotal study using colonoscopy as the reference method can be accessed at the following location: [email or web address]/results. Additional description of the Cologuard test process, warnings and precautions can be found at [email or web address]. Stool specimen (specimen) 05/13/2023 1:41 PM EST 05/15/2023 5:57 PM EST Claudia Holloway MD LAB MOLECULAR CARINA [employer]NO[employer] ORDERABLES Final Result [facility] (CLIA #:[id number]) [place] [address], * HIV Ab/Ag ([facility]) (04/10/2023 10:54 AM EDT) HIV AB/AG Nonreactive Nonreactive [facility] Comment:HIV-1 p24 Ag and/or HIV-1/HIV-2 Ab not detected.A test result that is nonreactive does not exclude thepossibility of exposure to or infection with HIV-1 and/orHIV-2. Nonreactive results in this assay for individualswith prior exposure to HIV-1 and/or HIV-2 may be due toantigen and antibody levels that are below the limit ofdetection of this assay.The [employer] HIV Ag/Ab Combo assay result andsupplemental assay results should be interpreted inconjunction with the patient's clinical presentation,history and other laboratory results. If the results areinconsistent with clinical evidence, additional testing issuggested to confirm the result. 04/10/2023 10:5 4 AM EDT 04/10/2023 1:32 PM EDT Claudia Holloway MD LAB BLOOD ORDERAB LES Final Result Performing Organization Address [facility] Co de Phone Number [facility] [address] [place] [phone] * Albumin, Random Urine W/Creatinine (04/10/2023 10:54 AM EDT) Creatinine, Urine 159.91 mg/dL [facility] Microalbumin Urine 7.0 mg/L [facility] Microalbum Creatinine Ratio Ur 4.3 <30 ug/mg cr [facility] Comment:Albumin/Creatinine R atio Reference Ranges: Normal: < 30 ug/mg creatinine Microalbuminuria: 30 - 300 ug/mg creatinineClinical Albuminuria: > 300 ug/mg creatinine 04/10/2023 10:5 4 AM EDT 04/10/2023 1:21 PM EDT Claudia Holloway MD LAB URINE ORDERAB LES Final Result Performing Organization Address [facility] de Phone Number [facility] [address] [place] [phone] * Hepatitis C Antibody with Reflex to HCV, RNA, Quantitative, Real-Time PCR (04/10/2023 10:54 AM EDT) Hepatitis C Antibody Nonreactive Nonreactive [facility] Comment:Antibodies to HCV no t detected; does not exclude early acuteHCV infection. Blood Venous blood specimen / Unknown 04/10/2023 10:54 AM EDT 04/10/2023 1:32 PM EDT Claudia Holloway MD LAB BLOOD ORDERAB LES Final Result Performing Organization Address [facility] Co de Phone Number [facility] [address] [place] [address] [phone] from Last 3 Months or Most Recently Relevant to Health Maintenance Insurance [facility] Care Teams Steamfitter Apprentice Relationship Specialty Start Date End Date Claudia Astorga MD [address] [place] [phone] PCP - General Internal Medicine 02/28/23
== END 2024-08-17 16:05 | disposition home or self-care (01) ==
LOC: HO.HHCX 16:04
PROVIDERS: Visit Provider Nurse Practitioner
DX: M25.572 Pain in left ankle and joints of left foot (principal)
CPT/HCPCS: 73610

== ENCOUNTER → 2024-08-17 16:04 | Outpatient (BNV) | payer OTHER, SELFPAY | PROVIDERS: Visit Provider Radiology Diagnostic Radiology | DX: M25.572 Pain in left ankle and joints of left foot (principal) | CPT/HCPCS: 73610 ==

== ENCOUNTER 2024-10-08 13:27 | Outpatient (RCR) | payer OTHER, SELFPAY | END 2024-12-01 11:40 | disposition home or self-care (01) | LOC: HO.PT 13:27 | PROVIDERS: PCP Student in an Organized Health Care Education/Training Program; Visit Provider Nurse Practitioner | DX: M25.561 Pain in right knee (principal) | CPT/HCPCS: 97116; 97162 ==

== ENCOUNTER 2024-12-22 19:59 | Emergency (ER) | payer OTHER, SELFPAY ==
--- NOTE | ~2024-12-22 | XR_ITS ---
CLINICAL HISTORY: chest pain 2 view chest x-ray Comparison: None provided Findings: Bilateral interstitial thickening. No superimposed acute airspace opacity. No pleural effusion or pneumothorax. Borderline heart size. Prominent aortic calcifications. No acute fracture. There are surgical clips in the upper abdomen. IMPRESSION: 1. Bilateral interstitial thickening secondary to pneumonitis or fluid overload. 2. No segmental pneumonia or significant pleural effusion. This document has been electronically signed by: Alyssa Marks DO on 12/22/2024 20:57:09
--- NOTE | 2024-12-22 20:01 | ECG_ITS ---
Test Reason : cp Blood Pressure : */* mmHG Vent. Rate : 115 BPM Atrial Rate : 115 BPM P-R Int : 158 ms QRS Dur : 84 ms QT Int : 330 ms P-R-T Axes : 37 13 -5 degrees QTcB Int : 456 ms Sinus tachycardia Otherwise normal ECG When compared with ECG of 20-May-2023 11:23, No significant change was found Referred By: Heidi Lundberg Electronically Signed By: CARMINE HALL MD
[2024-12-22 20:08] VITALS: BP 184/89; PULSE 123; RESP 20; TEMP 36.1; O2SAT 99; BMI 34.5
--- NOTE | 2024-12-22 20:08 | ED.CHESTPAIN ---
HPI - Chest Pain General Chief Complaint: Chest Pain Stated Complaint: chest pain/213/90 Time Seen by Provider: 12/22/24 20:31 Source: patient Mode of arrival: ambulatory Limitations: no limitations History of Present Illness ED Provider: HPI narrative: Patient's history of asthma anxiety apparently was watching TV all of a sudden started having chest discomfort with anxiety patient's said there for last 2 months patient has been having chest discomfort especially on ambulation without any significant radiation no shortness a breath patient was tearful on arrival very anxious no known coronary artery disease Related Data Home Medications ?Medication ?Instructions ?Recorded ?Confirmed albuterol sulfate 90 mcg/actuation 2 puff PO Q4-6H PRN Wheezing 10/02/21 03/23/24 aerosol inhaler methadone 10 mg/5 mL oral solution 10 mg PO DAILY 10/02/21 03/23/24 montelukast 10 mg tablet 1 tab PO QPM 10/02/21 03/23/24 dapagliflozin propanediol 10 mg 10 mg PO QAM 02/01/23 03/23/24 tablet (Farxiga) quetiapine 25 mg tablet 25 mg PO BEDTIME PRN 03/04/23 03/23/24 atorvastatin 10 mg tablet 10 mg PO DAILY 08/01/23 03/23/24 baclofen 10 mg tablet 10 mg PO TID 08/01/23 03/23/24 bupropion HCl 150 mg 24 hr tablet, 300 mg PO QAM 08/01/23 03/23/24 extended release (Wellbutrin XL) fluticasone fur. 200 mcg-umeclid 1 inh inhalation DAILY 08/01/23 03/23/24 62.5 mcg-vilant 25 mcg inhalat.powder (Trelegy Ellipta) ipratropium 0.5 mg-albuterol 3 mg ml inhalation 08/01/23 03/23/24 (2.5 mg base)/3 mL nebulization soln Previous Rx's ?Medication ?Instructions ?Recorded furosemide 40 mg tablet 40 mg PO QAM 30 days #30 tabs 01/08/22 betamethasone dipropionate 0.05 % 1 appl topical BID #15 grams 02/03/23 topical ointment guaifenesin 600 mg tablet, 600 mg PO BID chronic bronchitis 08/01/23 extended release 12 hr (Mucinex) 30 days #60 tabs Allergies Allergy/AdvReac Type Severity Reaction Status Date / Time No Known Allergies (No Known Allergy Verified 12/22/24 20:11 Allergies*) Review of Systems Review of Systems: Yes all other systems are reviewed and are negative [facility] Past Medical History Medical History Asthma with COPD (chronic obstructive pulmonary disease) Somnolence, daytime Obesity (BMI 30-39.9) Hx of substance abuse Pancreatitis Depression HTN (hypertension) Asthma Surgical History History of mandibular surgery History of ERCP Hx of cholecystectomy Social History Social History Alcohol intake: never Patient Tobacco Use Status: Never used Tobacco Substance Use Type: Heroin Advance Directives: No Advance Directives Information Provided: No Do you have a plan to hurt others: No Plan Physical Exam Vital Signs: Vital Signs: Last Vital Signs Temp 98.7 F 12/22/24 22:49 Pulse 75 12/22/24 22:49 Resp 18 12/22/24 22:49 BP 140/71 H 12/22/24 22:49 Pulse Ox 96 12/22/24 22:49 O2 Del Method Room Air 12/22/24 22:49 BMI result Body Mass Index 34.5 Appearance: Alert. Oriented X3. No acute distress. Anxious Eyes: PERRLA, No Nystagmus ENT: Pharynx normal. Oral Mucosa moist Neck: Normal inspection. Neck supple. CVS: Normal heart rate and rhythm. Pulses normal. Respiratory: No respiratory distress. Equal air entry bilateral, no wheezing/rales/rhonchi Abdomen: Soft and nontender. Bowel sounds are present, no mass palpable, no CVA tenderness Skin: Skin warm and dry. Normal skin color. Normal skin turgor. Extremities: No lower extremity edema. No calf tenderness Neuro: Oriented X 3. No motor deficit. No sensory deficit.No cerebellar signs , cranial nerves II-XII intact Course Course Course Narrative: This is an RME performed by Magdiel Lundberg GLASS BULB MACHINE ADJUSTER: Additional HPI, ROS, PE not included below will be deferred to primary provider. patient is a 64-year-old male who presents emergency department for evaluation 2 hours prior to arrival he had onset of chest pain that exacerbated on exertion, took BP at home was elevated to 213/90 took antihypertensive medication. Plan: Serum labs, ECG, CXR Medications Administered Discontinued Medications Generic Name Dose Route Start Last Admin Trade Name Jeremy PRN Reason Stop Dose Admin Potassium Bicarbonate 50 meq 12/22/24 22:07 12/22/24 22:24 Potassium Bicarbonate/Cit Ac 25 Meq Tablet.Eff PO 12/22/24 22:08 50 meq ONCE ONE Administration Medical Decision Making Medical Decision Making [facility] Narrative: Patient's anxiety with atypical chest pain 2 sets of cardiac enzymes negative for acute delta change EKG without ischemic changes patient is chest pain-free relax discharge patient home advised to follow up with PCP if further management Differential Diagnosis Differential Diagnoses: The differential diagnosis associated with the presentation includes Anxiety/atypical chest pain/musculoskeletal chest pain/ACS Lab Data [facility] Lab Attestation statement: I reviewed the patient's lab results. 12/22/24 20:11 12/22/24 20:11 Labs: Lab Results 12/22/24 12/22/24 Range/Units 20:11 21:38 WBC 8.8 (4.8-10.8) X10*3/uL RBC 4.97 (4.60-5.80) X10*6/uL Hgb 13.0 L (14.0-18.0) g/dl Hct 40.7 L (42.0-52.0) % MCV 81.9 (80.0-98.0) fL MCH 26.2 L (27.0-33.0) pg MCHC 31.9 (31.0-36.0) g/dl RDW 13.0 (11.0-16.0) % Plt Count 286 (160-400) X10*3/uL MPV 8.0 L (9.4-12.4) fL Immature Gran % (Auto) 0.3 (0.0-0.4) % Neut % (Auto) 61.0 (45-73) % Lymph % (Auto) 26.7 (20-40) % [place] % (Auto) 8.5 (2-11) % Eos % (Auto) 3.2 (0-4) % Baso % (Auto) 0.3 (0-2) % Lymph # (Auto) 2.4 (1.2-4.9) X10*3/uL [place] # (Auto) 0.8 (0.1-1.2) X10*3/uL Eos # (Auto) 0.3 (0.0-0.4) X10*3/uL Baso # (Auto) 0.0 (0.0-0.2) X10*3/uL Abs Immat Gran (auto) 0.03 (0.00-0.03) X10*3/uL Absolute Neuts (auto) 5.4 (2.0-8.3) x10*3/uL Absolute Nucleated RBC 0.000 (0.0-0.012) X10*3/uL Nucleated RBC % (auto) 0.0 (0.0-0.2) /100WBC Sodium 140 (135-145) mmol/L Potassium 3.1 L D (3.3-5.1) mmol/L Chloride 100 (96-108) mmol/L Carbon Dioxide 31 H (22-29) mmol/L Anion Gap 12 (12-20) BUN 14 (9-16) mg/dL Creatinine 0.83 (0.5-1.4) mg/dL Estim Creat Clear Calc 88.4 Estimated GFR > 60 Random Glucose 183 H (60-115) mg/dL Calcium 9.4 (8.4-10.2) mg/dL Total Bilirubin 0.3 (0.0-1.0) mg/dL AST 25 (5-37) U/L ALT 26 (0-40) U/L Alkaline Phosphatase 85 (39-117) U/L Troponin I High Sens < 2.7 3.5 (<3.5-35.0) ng/L B-Natriuretic Peptide 17 (<100) pg/mL Total Protein 7.9 (6.5-8.0) g/dL Albumin 4.4 (3.5-5.0) g/dL Lipase 13 (8-78) U/L Independent Interpretation I performed an independent interpretation of an: EKG Interpretation: Sinus tachycardia heart rate of 115 beats per minute normal interval normal axis no acute ST-T no acute ischemia Radiology Impression Radiologist Impression: No acute Discharge Plan Discharge Clinical Impression: Chest pain, Anxiety Patient Disposition: Home, Self-Care Instructions: Chest Pain (ED), Anxiety (ED) Additional Instructions: At this time there is no evidence of heart attack Continue take your medication and follow up with your PCP for further evaluation Prescriptions: No Action montelukast 10 mg tablet 1 tab PO QPM albuterol sulfate 90 mcg/actuation HFA aerosol inhaler 2 puff PO Q4-6H PRN (Reason: Wheezing) methadone 10 mg/5 mL Solution 10 mg PO DAILY quetiapine 25 mg tablet 25 mg PO BEDTIME PRN bupropion HCl [Wellbutrin XL] 150 mg tablet extended release 24 hr 300 mg PO QAM furosemide 40 mg tablet 40 mg PO QAM 30 Days Qty: 30 0RF Trelegy Ellipta 200-62.5-25 mcg blister with device 1 inh inhalation DAILY baclofen 10 mg tablet 10 mg PO TID atorvastatin 10 mg tablet 10 mg PO DAILY ipratropium-albuterol 0.5 mg-3 mg(2.5 mg base)/3 mL solution for nebulization inhalation guaifenesin [Mucinex] 600 mg tablet extended release 12hr 600 mg PO BID 30 Days Qty: 60 2RF Farxiga 10 mg tablet 10 mg PO QAM betamethasone dipropionate 0.05 % ointment 1 appl topical BID Qty: 15 0RF Rx Instructions: Thin coat 2 times per day Interventions: ED Discharge Assessment Last Done: 12/22/24 22:49 Discharge Date/Time: 12/22/24 22:53 Print Language: Hungarian
[2024-12-22 20:15] LABS: MANUAL DIFF FLAG NO
[2024-12-22 20:17] LABS: Hematocrit 40.7 % (42.0-52.0); Hemoglobin 13.0 g/dl (14.0-18.0); Imm Gran Abs Auto 0.03 X10*3/uL (0.00-0.03); Imm Gran Pct Auto 0.3 % (0.0-0.4); Lymphocytes Absolute Auto 2.4 X10*3/uL (1.2-4.9); Mean Corpuscular HGB Conc 31.9 g/dl (31.0-36.0); Mean Corpuscular Hemoglobin 26.2 pg (27.0-33.0); Mean Corpuscular Volume 81.9 fL (80.0-98.0); NRBC Abs Auto 0.000 X10*3/uL (0.0-0.012); NRBC Pct Auto 0.0 /100WBC (0.0-0.2); Platelet Count 286 X10*3/uL (160-400); Red Blood Count 4.97 X10*6/uL (4.60-5.80); White Blood Count 8.8 X10*3/uL (4.8-10.8)
--- OUTSIDE RECORDS SUMMARY | 2024-12-22 20:29 | XMS_ITS | Clinical Summary ---
Author Organization [address] [facility] Address [address] [place] [address] Phone Care Team Providers Care Flea Market Seller Name Role Phone Rg Canseco MD Primary Care Provider + [phone] Allergies No known active allergies Medications ammonium [...] Encounters Date Type Department Care Team Description 09/22/2024 1:30 PM EDT Office Visit Orthopedic Surgery [facility] [address] [facility] [address] [place] [address] Josue Bello DPM Chronic pain of left ankle (Primary Dx); Controlled type 2 diabetes with neuropathy (CMS/HCC V24, CMS/HCC V28); Lumbosacral radiculopathy; PVD (peripheral vascular disease) (CMS/HCC V24); Peroneal tendon tear, left, sequela from Last 3 Months Social History Tobacco [...] - - Weight 90.7 kg (200 lb) 09/22/2024 1:23 PM EDT Height 162.6 cm (5' 4.02 ) 09/22/2024 1:23 PM ED T Body Mass Index 34.31 09/22/2024 1:23 PM EDT Plan of Treatment Health Maintenance Due Date Last Done Comments Diabetes: Annual Foot Exam 1970 Diabetes: Annual Retina Eye Exam 1970 Hepatitis A Vaccines (2 of 2 - Risk 2-dose series) 04/12/2011 10/11/2010 RSV Immunization Adult Patients (1 - Risk 60-74 years 1-dose series) [...] Hepatitis B Vaccines Completed 03/25/2008, 05/28/2007, 03/20/2007 Pneumococcal Vaccine: 50+ Years Completed 04/02/2023, 08/25/2013 [...] age to complete this topic Meningococcal B Vaccine Aged Out No l onger eligible based on patient's age to complete this topic RSV Immunization Patients Under 20 months Aged Out No longer eligible based on patient's age to complete this topic Varicella Vaccines Aged Out No longer eligible based on patient's age to complete this topic Procedures Procedure Name Priority Date/Time Associated Diagnosis Comments XR LUMBAR SPINE 4+ VIEWS Routine 09/22/2024 1:50 PM EDT Left ankle pain XR ANKLE 3+ VIEWS LEFT Routine 09/22/2024 1:50 PM EDT Left ankle pain FIT-DNA Routine 05/13/2023 HEPATITIS C SCREENING Routine 04/10/2023 HIV SCREENING Routine 04/10/2023 ANNUAL BMP BLOOD TEST Routine 04/10/2023 HEMOGLOBIN A1C Routine 04/10/2023 LIPID PANEL Routine 04/10/2023 from Last 3 Months or Most Recently Relevant to Health Maintenance Results * XR Lumbar Spine 4+ Views (09/22/2024 1:50 PM EDT) Anatomical Region Laterality Modality Spine, L-spine Computed Radiogr aphy 09/22/2024 2:04 PM EDT Impressions 09/22/2024 2:07 PM EDT Mild multilevel degenerative changes. -------- FINAL REPORT -------- Dictated By: Ro Espinosa Dictated Date: 09/22/2024 14:04 ET Assigned Physician: Ro Espinosa Reviewed and Electronically Signed By: Ro Espinosa Signed Date: 09/22/2024 14:07 ET Workstation ID: [id number] Transcribed By: Self Edit Transcribed Date: 09/22/2024 14:04 ET Narrative 09/22/2024 2:07 PM EDT XR LUMBAR SPINE 4 VIEWS Reason: left foot pain Comparison: None FINDINGS: Evaluation partially limited due to motion and overlying structures. Grade 1 anterolisthesis of L4 on L5. No compression fracture. Small marginal osteophytes at multiple levels. Disc spaces are preserved. Facet arthropathy in the lower lumbar spine. Procedure Note Ro Espinosa MD - 09/22/2024 XR LUMBAR SPINE 4 VIEWS Reason: left foot pain Comparison: None FINDINGS: Evaluation partially limited due to motion and overlying structures.Grade 1 anterolisthesis of L4 on L5. No compression fracture. Smallmarginal osteophytes at multiple levels. Disc spaces are preserved.Facet arthropathy in the lower lumbar spine. IMPRESSION: Mild multilevel degenerative changes. -------- FINAL REPORT -------- Dictated By: Ro Espinosa Dictated Date: 09/22/2024 14:04 ET Assigned Physician: Ro Espinosa Reviewed and Electronically Signed By: Ro Espinosa Signed Date: 09/22/2024 14:07 ET Workstation ID: [id number] Transcribed By: Self Edit Transcribed Date: 09/22/2024 14:04 ET Josue Bello DPNella IMG XR PROCEDURES Final Res ult * XR Ankle 3+ Views Left (09/22/2024 1:50 PM EDT) Anatomical Region Laterality Modality Lower Extremities, Ankle Left Compute d Radiography Narrative 11/09/2024 8:35 PM EDT Left ankle 3 views weightbearing: No obvious fractures or dislocations. C sign on lateral view with sclerosis through the subtalar joint. Appearance of previous fracture of fibula with synostosis of the interosseous membrane. Result [facility] Josue Bello DPNella IMG XR PROCEDURES Final Res ult * FIT-DNA (Cologuard) (05/13/2023) [facility] Colorectal Cancer Screening: FIT-DNA (Cologuard) Abstracted, No Interpretation Result [facility] Provider HEALTH MAINTENANCE Final Result * Annual BMP Blood Test (04/10/2023) [facility] Annual BMP Blood Test Abstracted Result [facility] Provider HEALTH MAINTENANCE Final Result * HIV Screening (04/10/2023) [facility] HIV Screening Abstracted Result [facility] Provider HEALTH MAINTENANCE Final Result * Hepatitis C Screening (04/10/2023) [facility] Hepatitis C Screening Abstracted Result [facility] Provider HEALTH MAINTENANCE Final Result * Hemoglobin A1c (04/10/2023) [facility] Hemoglobin A1C 0.0 % Blood Venous blood specimen / Unknown Result [facility] Provider LAB BLOOD ORDERABLES Kusum l Result * Lipid panel (04/10/2023) [facility] LDL/HDL Ratio 0 Triglycerides 0 mg/dL Cholesterol 0 mg/dL HDL 0 mg/dL LDL Cholesterol 0 mg/dL Blood Venous blood specimen / Unknown us Historical Provider LAB BLOOD ORDERABLES Kusum randle Result from Last 3 Months or Most Recently Relevant to Health Maintenance Insurance [employer] Member Subscriber Plan / Payer (Ef fective 2016-Present) Name:Shun Enriquez Relation to Subscriber:Self Name:Shun Enriquez Payer ID:[id number] Group ID:[id number] Type:Not on file Address: [place] [address] [address] [phone] Care Teams Flea Market Seller Relationship Specialty Start Date End Date Rg Canseco MD [address] [place] [address] CARISA Bradford [phone] PCP - General 12/24/23
[2024-12-22 20:34] LABS: Alanine Aminotransferase 26 U/L (0-40); Albumin Level 4.4 g/dL (3.5-5.0); Alkaline Phosphatase 85 U/L (39-117); Anion Gap 12 (12-20); Aspartate Amino Transferase 25 U/L (5-37); Blood Urea Nitrogen 14 mg/dL (9-16); Calcium 9.4 mg/dL (8.4-10.2); Carbon Dioxide 31 mmol/L (22-29); Chloride 100 mmol/L (96-108); Creatinine Clr Calc Pharmacy 88.4; Estimated Glomerular Filt Rate > 60; Lipase 13 U/L (8-78); Potassium 3.1 mmol/L (3.3-5.1); Sodium 140 mmol/L (135-145); Total Protein 7.9 g/dL (6.5-8.0)
[2024-12-22 20:39] LABS: B Type Natriuretic Peptide 17 pg/mL (<100)
[2024-12-22 20:43] LABS: Troponin-I High Sensitivity < 2.7 ng/L (<3.5-35.0)
[2024-12-22 22:10] VITALS: BP 140/71; PULSE 75; RESP 18; O2SAT 96
[2024-12-22 22:10] LABS: Troponin-I High Sensitivity 3.5 ng/L (<3.5-35.0)
[2024-12-22] MEDS: Potassium Bicarbonate/Cit AC 25 MEQ TABLET.EFF 50 MEQ PO (22:24)
[2024-12-22 22:49] VITALS: BP 140/71; PULSE 75; RESP 18; TEMP 37.1; O2SAT 96
== END 2024-12-22 22:53 | disposition home or self-care (01) ==
PROVIDERS: Nurse Practitioner Family; Emergency Provider Internal Medicine; PCP Student in an Organized Health Care Education/Training Program
DX: R07.89 Other chest pain (principal); R06.02 Shortness of breath; F41.9 Anxiety disorder, unspecified; Z79.899 Other long term (current) drug therapy
CPT/HCPCS: 36415; 71046; 80053; 83690; 83880; 84484; 85025; 93005; 99283; 99284

== ENCOUNTER → 2024-12-22 20:01 | Outpatient (BNV) | payer OTHER, SELFPAY | PROVIDERS: Emergency Provider Internal Medicine; PCP Student in an Organized Health Care Education/Training Program; Visit Provider Internal Medicine Cardiovascular Disease | DX: R00.0 Tachycardia, unspecified (principal) | CPT/HCPCS: 93010 ==

== ENCOUNTER → 2024-12-22 20:02 | Outpatient (BNV) | payer OTHER, SELFPAY | PROVIDERS: Emergency Provider Internal Medicine; PCP Student in an Organized Health Care Education/Training Program; Visit Provider Radiology Diagnostic Radiology | DX: J84.9 Interstitial pulmonary disease, unspecified (principal) | CPT/HCPCS: 71046 ==

== ENCOUNTER 2024-12-24 10:41 | Outpatient (REF) | payer OTHER, SELFPAY ==
--- OUTSIDE RECORDS SUMMARY | 2024-12-24 11:30 | XMS_ITS | Encounter Summary ---
Author Organization [employer] Address [address] [facility] 7[address] [place] [address] Care Team Providers Care Agricultural Scientist Name Role Phone Claudia Astorga MD Primary Care Pro vider Perla Rahman PharmD Unavailable [phone] Encounter Details Date Type Department Care Team (Latest Contact Info) Description 12/23/2024 Travel Social History Tobacco Use Types Packs/Day [...] Care Team (Late st Contact Info) Description 12/30/2024 3:00 PM EDT Telemedicine [facility] [address] [place] [phone] Perla Rahman PharmD [address] [place] [address] 02/16/2025 1:00 PM EDT Office Visit [facility] OPTOMET[facility] [address] [place] [phone] Triny Hill, OD [address] [place] [address] 02/25/2025 1:15 PM EDT Office Visit [facility] [address] [place] [phone] Claudia Astorga MD [address] [place] [phone] documented as of this encounter Visit Diagnoses Not on filedocumented in this encounter Additional Health Concerns Assessment Noted Time PHQ-9 Depression Total Score: 19 024 10:08 AM EDT documented as of this encounter Care Teams Agricultural Scientist Relationship Specialty Start Date End Date Claudia Astorga MD [address] [place] [phone] PCP - General Internal Medicine 02/28/23 Perla Rahman PharmD [address] [place] [phone] Pharmacist Internal Medicine 10/15/24 documented as of this encounter
[2024-12-24 13:35] LABS: Hemoglobin A1C 220.6978 umol/L; Total Hemoglobin (HGBA1C) 3500.9342 umol/L
[2024-12-24 13:55] LABS: Anion Gap 13 (12-20); Blood Urea Nitrogen 13 mg/dL (9-16); Calcium 9.3 mg/dL (8.4-10.2); Carbon Dioxide 32 mmol/L (22-29); Chloride 97 mmol/L (96-108); Cholesterol 161 mg/dL (<200); Estimated Glomerular Filt Rate > 60; HDL Cholesterol 43 mg/dL (>40); Potassium 3.6 mmol/L (3.3-5.1); Sodium 138 mmol/L (135-145); Triglycerides 120 mg/dL (<150)
[2024-12-24 14:20] LABS: Microalbum/Creatinine Ratio Ur 3.9 ug/mg cr (<30)
== END 2024-12-24 10:42 | disposition home or self-care (01) ==
LOC: HO.HHCL 10:41
PROVIDERS: PCP Student in an Organized Health Care Education/Training Program; Visit Provider Student in an Organized Health Care Education/Training Program
DX: I10 Essential (primary) hypertension (principal); E11.40 Type 2 diabetes mellitus with diabetic neuropathy, unspecified; Z79.4 Long term (current) use of insulin
CPT/HCPCS: 36415; 80048; 80061; 82043; 82570; 83036

== ENCOUNTER 2025-04-13 08:29 | Outpatient (REF) | payer OTHER, SELFPAY ==
--- OUTSIDE RECORDS SUMMARY | 2025-04-15 08:51 | XMS_ITS | Encounter Summary ---
Author Organization [employer] Address [address] [facility] [address] [place] [address] Care Team Providers Care Potato Loader Name Role Phone Claudia Astorga MD Primary Care Pro vider Perla Rahman PharmD Unavailable [phone] Reason for Visit * Reason Comments Med Refill Encounter Details Date Type Department Care Team ([facility] st Contact Info) Description 04/05/2023 Refill [facility] [address] [place], [place] [phone] Barrington Dunbar AGNP Newly diagnosed diabetes ([facility]) Social History Tobacco Use Types [...] Care Team (Late st Contact Info) Description 05/10/2025 11:30 AM EST Medication Management [facility] [address] [place] [address] Perla Rahman PharmD [address] [place] [address] documented as of this encounter Visit Diagnoses Diagnosis Newly diagnosed diabetes (HCC) Type II or unspecified type diabetes mellitus without mention of complication, not stated as uncontrolled documented in this encounter Care Teams Potato Loader Relationship Specialty Start Date End Date Claudia Astorga MD [address] [place] [phone] PCP - General Internal Medicine 02/28/23 Perla Rahman PharmD [address] [place] [address] [phone] Pharmacist Internal Medicine 10/15/24 documented as of this encounter
--- OUTSIDE RECORDS SUMMARY | 2025-04-15 08:51 | XMS_ITS | Encounter Summary ---
Author Organization [employer] [facility] Address [address] [facility] 7[address] [place] [address] Care Team Providers Care Machinist Set Up Name Role Phone Barrington Dunbar Primary Care Provider Unavail Claudia Carrillo MD Primary Care Pro vider Perla Rahman PharmD Unavailable [phone] Encounter Details Date Type Department Care Team ([facility] Contact Info) Description 08/29/2022 Telephone [facility] [address] [place] [address] [phone] Barrington Dunbar AGNP Social History Tobacco Use [...] Upcoming Encounters Date Type Department Care Team ([facility] Contact Info) Description 05/10/2025 11:30 AM EST Medication Management [facility] [address] [place] [address] [phone] Perla Rahman, PharmD [address] [place], [place] [phone] documented as of this encounter Visit Diagnoses Not on filedocumented in this encounter Care Teams Machinist Set Up Relationship Specialty Start Date End Date Barrington Dunbar AGNP PCP - General Family Medicine 07/18/22 02/27/23 Claudia Astorga MD [address] [place], [place] [phone] PCP - General Internal Medicine 02/28/23 Perla Rahman PharmD [address] [place] [address] [phone] Pharmacist Internal Medicine 10/15/24 documented as of this encounter
--- OUTSIDE RECORDS SUMMARY | 2025-04-15 08:51 | XMS_ITS | Encounter Summary ---
Author Organization [employer] Address [address] [facility] 7t [place] [address] Care Team Providers Care Traffic Maintenance Supervisor Name Role Phone Barrington Dunbar Primary Care Provider Unavail able Claudia Astorga MD Primary Care Pro vider Perla Rahman PharmD Unavailable [phone] Reason for Visit * Reason Onset Date Comments PCP Change 02/07/2023 Encounter Details Date Type Department Care Team (Late st Contact Info) Description 02/07/2023 Telephone [facility] [address] [place], [place] [phone] Barrington Dunbar AGNP PCP Change Social History [...] Sera Linares - 02/07/2023 12:23 PM EDT Tad from [place] (care coodinator) at [facility] calling on behalf of patient, requesting for change of PCP. Patient stated PCP is not meeting his medical needs at this time. documented in this encounter Plan of Treatment Upcoming Encounters Date Type Department Care Team (Late st Contact Info) Description 05/10/2025 11:30 AM EST Medication Management [facility] [address] [place], [place] [phone] Perla Rahman PharmD [address] [place] [address] documented as of this encounter Visit Diagnoses Not on filedocumented in this encounter Care Teams Traffic Maintenance Supervisor Relationship Specialty Start Date End Date Barrington Dunbar AGNP PCP - General Family Medicine 07/18/22 02/27/23 Claudia Astorga MD [address] [place] [address] [phone] PCP - General Internal Medicine 02/28/23 Perla Rahman PharmD [address] [place] [address] [phone] Pharmacist Internal Medicine 10/15/24 documented as of this encounter
--- OUTSIDE RECORDS SUMMARY | 2025-04-15 08:51 | XMS_ITS | Encounter Summary ---
Author Organization [email or web address] [facility] Address [address] [facility] 7t [place] [address] Care Team Providers Care Account Support Manager Name Role Phone Rg Canseco MD Primary Care Provider Barrington Vásquez Primary Care Provider Unavail Claudia Carrillo MD Primary Care Pro vider Perla Rahman PharmD Unavailable [phone] Reason for Visit * Reason Comments Med Refill Encounter Details Date Type Department Care Team (Late Contact Info) Description 07/10/2022 Refill [facility] [address] [place] [address] Kaci Monge MD [address] [place] [address] Acute bronchitis, unspecified organism Social History Tobacco [...] Description 05/10/2025 11:30 AM EST Medication Management [facility] [address] [place] [address] Perla Rahman, PharmD [address] [place] [address] documented as of this encounter Visit Diagnoses Diagnosis Acute bronchitis, unspecified organism documented in this encounter Care Teams Account Support Manager Relationship Specialty Start Date End Date Rg Canseco MD PCP - General Family Medicine 12/10/19 07/17/22 Barrington Dunbar AGNP PCP - General Family Medicine 07/18/22 02/27/23 Claudia Astorga MD [address] [place] [address] PCP - General Internal Medicine 02/28/23 Perla Rahman PharmD [address] [place] [address] Pharmacist Internal Medicine 10/15/24 documented as of this encounter
--- OUTSIDE RECORDS SUMMARY | 2025-04-15 08:51 | XMS_ITS | Encounter Summary ---
Author Organization [employer] Address [address] [facility] [address] [place] [address] Care Team Providers Care Dehydration Plant Operator Name Role Phone Claudia Astorga MD Primary Care Pro vider Perla Rahman PharmD Unavailable [phone] Reason for Visit * Reason Comments Med Refill Encounter Details Date Type Department Care Team ([facility] st Contact Info) Description 05/19/2023 Refill [facility] [address] [place], [place] [phone] Mc Stewart MD [address] [place] [address] Social History Tobacco Use Types Packs/Day Years [...] Description 05/10/2025 11:30 AM EST Medication Management [facility] [address] [place] [address] [phone] Perla Rahman PharmD [address] [place] [address] [phone] documented as of this encounter Visit Diagnoses Not on filedocumented in this encounter Care Teams Dehydration Plant Operator Relationship Specialty Start Date End Date Claudia Astorga MD [address] [place] [address] [phone] PCP - General Internal Medicine 02/28/23 Perla Rahman PharmD [address] [place] [address] [phone] Pharmacist Internal Medicine 10/15/24 documented as of this encounter
--- OUTSIDE RECORDS SUMMARY | 2025-04-15 08:51 | XMS_ITS | Encounter Summary ---
Author Organization [facility] Address [address] [facility] 7t [place] [address] Care Team Providers Care Regional Retail Sales Manager Name Role Phone Claudia Astorga MD Primary Care Pro vider Perla Rahman PharmD Unavailable [phone] Reason for Visit * Reason Comments Med Refill Encounter Details Date Type Department Care Team (Late Contact Info) Description 03/17/2023 Refill [facility] [address] [place] [phone] Mc Stewart MD [address] [place] [phone] Social History Tobacco Use Types Packs/Day Years [...] Description 05/10/2025 11:30 AM EST Medication Management [facility] [address] [place] [address] Perla Rahman, PharmD [address] [place] [address] documented as of this encounter Visit Diagnoses Not on filedocumented in this encounter Care Teams Regional Retail Sales Manager Relationship Specialty Start Date End Date Claudia Astorga MD [address] [place] [address] [phone] PCP - General Internal Medicine 02/28/23 Perla Rahman PharmD [address] [place] [address] [phone] Pharmacist Internal Medicine 10/15/24 documented as of this encounter
--- OUTSIDE RECORDS SUMMARY | 2025-04-15 08:52 | XMS_ITS | Encounter Summary ---
Author Organization [facility] Address [address] [facility] 7t [place] [address] Care Team Providers Care Associate Director Financial Aid Name Role Phone Barrington Dunbar Primary Care Provider Unavail able Claudia Astorga MD Primary Care Pro vider Perla Rahman PharmD Unavailable [phone] Reason for Visit * Reason Comments Med Refill Encounter Details Date Type Department Care Team (Late st Contact Info) Description 01/20/2023 Refill [facility] [address] [place], [place] [phone] Barrington Dunbar AGNP Right leg pain Social [...] Description 05/10/2025 11:30 AM EST Medication Management [facility] [address] [place], [place] [phone] Perla Rahman, PharmD [address] [place], [place] [phone] documented as of this encounter Visit Diagnoses Diagnosis Right leg pain Pain in soft tissues of limb documented in this encounter Care Teams Associate Director Financial Aid Relationship Specialty Start Date End Date Barrington Dunbar AGNP PCP - General Family Medicine 07/18/22 02/27/23 Claudia Astorga MD [address] [place] [address] PCP - General Internal Medicine 02/28/23 Perla Rahman PharmD [address] [place] [phone] Pharmacist Internal Medicine 10/15/24 documented as of this encounter
--- OUTSIDE RECORDS SUMMARY | 2025-04-15 08:52 | XMS_ITS | Clinical Summary ---
Author Organization [employer] Address [address] [facility] [address] [place] [address] Care Team Providers Care Final Cigar And Box Examiner Name Role Phone Claudia Astorga MD Primary Care Pro vider Perla Rahman PharmD Unavailable [phone] Allergies Active Allergy Reactions Criticality Noted Date Comments Metformin Other 05/01/2023 Off metformin for GI SE Medications * This document contains information received from the source organization and may not represent a complete record from that organization. Blood Glucose Monitoring Suppl (FreeStyle Lite) w/Device kitIndications:N ewly diagnosed diabetes (HCC) 1 strip 2 times daily. 1 kit 3 Active glucose 4 g chewable tabletIndication s:Newly diagnosed diabetes (HCC) Chew 4 tablets (16 g) if needed for low blood sugar. 50 tablet 12 3 Active methadone (Dolophine) 10 MG/5ML solution Take 95 mg by mouth. Current dose 105 mg per pt Active naloxone (Narcan) 4 mg/0.1 mL nasal spray FOR SUSPECTED OPIOID OVERDOSE. SPRAY 0.1mL IN ONE NOSTRIL. REPEAT IN ALTERNATE NOSTRIL 2-3 MINUTES IF NEEDED. SEEK MEDICAL ATTENTION IMMEDIATELY EVEN IF PATIENT RESPONDS. 2 each 1 3 Active baclofen (Lioresal) 10 MG tabletIndication s:Right leg pain TAKE 1 TABLET BY MOUTH THREE TIMES DAILY NEEDED FOR MUSCLE SPASMS 60 tablet 3 Active amitriptyline (Elavil) 10 MG tabletIndication s:Right leg pain TAKE 1 TABLET BY MOUTH AT BEDTIME 30 tablet 1 4 Active Spacer/Aero-Hold ing Chambers (OptiChamber Jacey) misc 1 each every 4 (four) hours if needed (asthma). 1 each 4 Active Misc. Devices (Pulse Oximeter For Finger) misc 1 each 2 times daily. Should read 95% or above. 1 each 4 Active Nebulizers misc 1 each every 6 (six) hours if needed (cough). Use with nebulizer liquid every 6 hours as needed for asthma exacerbation and cough 1 each 4 Active Continuous Glucose Student Admissions Clerk (FreeStyle Shaneka 2 [place]) deviceIndication s:Type 2 diabetes mellitus with diabetic neuropathy, with long-term current use of insulin (HCC) USE TO CHECK BLOOD SUGAR EVERY 8 HOURS 1 each 4 Active Alcohol Swabs (Alcohol Prep) 70 % pads USE DIRECTED DAILY AT BEDTIME 100 each 11 4 Active buPROPion XL (Wellbutrin XL) 300 MG 24 hr tablet Take 300 mg by mouth in the morning. 4 Active gabapentin (Neurontin) 400 MG capsule Take 1 capsule (400 mg) by mouth at bedtime. 30 capsule 11 4 Active TechLite Plus Pen [place] 32G X 4 MM misc USE DIRECTED WITH INSULIN AT BEDTIME 100 each 3 4 Active Continuous Glucose Sensor (FreeStyle Shaneka 2 Sensor) miscIndications: Type 2 diabetes mellitus with diabetic neuropathy, with long-term current use of insulin (HCC) Use as directed to monitor glucose ever 8 hours. Replace sensor every 14 days. 2 each 4 Active Lancets (OneTouch Delica Plus [id number]) miscIndications: Newly diagnosed diabetes (HCC) USE DIRECTED TO TEST BLOOD SUGAR FOUR TIMES DAILY 100 each 11 4 Active TRUEplus Lancets 33G miscIndications: Type 2 diabetes mellitus with diabetic neuropathy, with long-term current use of insulin (HCC) Use to check blood sugar up to 3 times daily 100 each 11 5 Active Blood Glucose Monitoring Suppl (FreeStyle [place] Lite) w/Device kitIndications:T ype 2 diabetes mellitus with diabetic neuropathy, with long-term current use of insulin (HCC) Use to test blood sugar up to 3 times daily 1 kit 5 Active ipratropium-albu terol (Duo-Neb) 0.5-2.5 mg/3 mL nebulizer solutionIndicati ons:Severe persistent asthma with exacerbation (HCC) INHALE 1 AMPULE USING A NEBULIZER EVERY 6 HOURS NEEDED FOR COUGH, WHEEZING, OR SHORTNESS OF BREATH 180 mL 2 5 Active ammonium lactate (Lac-Hydrin) 12 % lotion APPLY TO SOLES OF FEET DAILY. AT NIGHT WEAR SOCKS TO BED Active famotidine (Pepcid) 20 MG tablet TAKE 1 TABLET BY MOUTH AT BEDTIME NEEDED FOR HEARTBURN 30 tablet 2 5 Active losartan-hydroCH LOROthiazide (Hyzaar) 100-25 MG tabletIndication s:Hypertension, unspecified type Take 1 tablet by mouth Once per day. 30 tablet 5 026 Active glucose blood (FreeStyle Precision Jong Test) test stripIndications :Type 2 diabetes mellitus with diabetic neuropathy, with long-term current use of insulin ([facility]) Use to test blood sugar up to 3 times daily, as directed. Use for hypoglycemia or CGM failure 100 each 5 Active montelukast (Singulair) 10 MG tablet TAKE 1 TABLET BY MOUTH EVERY EVENING 90 tablet 1 5 Active Diclofenac Sodium 1 % gelIndications:A cute pain of right knee APPLY 1 GRAM TOPICALLY TO AFFECTED AREA(S) THREE TIMES DAILY IN THE MORNING, AT NOON, AND AT BEDTIME NEEDED FOR PAIN 100 g 1 5 Active Semaglutide, 2 MG/DOSE, (Ozempic, 2 MG/DOSE,) 8 MG/3ML solution pen-injectorIndi cations:Type 2 diabetes mellitus with diabetic neuropathy, with long-term current use of insulin ([facility]) Inject 0.75 mL (2 mg) under the skin 1 (one) time per week. 3 mL 5 Active Continuous Glucose Sensor (FreeStyle Shaneka 2 Plus Sensor) misc 1 each every 8 (eight) hours. Apply 1 sensor every 15 days as directed for CGM. Continue to scan Q8H, at minimum, to capture 24 hr BG data. 2 each 5 Active Fluticasone-Umec lidin-Vilant (Trelegy Ellipta) 200-62.5-25 MCG/ACT aerosol powder Inhale 1 puff Once per day. At the same time in the morning 60 each 11 5 Active albuterol 108 (90 Base) MCG/ACT inhaler INHALE 2 PUFFS BY MOUTH EVERY 6 HOURS NEEDED FOR WHEEZING OR SHORTNESS OF BREATH 8.5 g 3 5 Active polyethylene glycol, PEG, 3350 (Glycolax) 17 GM/SCOOP powder TAKE 17 GM MIXED IN 8 OUNCES OF WATER, COFFEE OR TEA ONCE DAILY AT BEDTIME NEEDED CONSTIPATION 510 g 2 5 Active atorvastatin (Lipitor) 10 MG tabletIndication s:Type 2 diabetes mellitus with diabetic neuropathy, with long-term current use of insulin (HCC) Take 1 tablet (10 mg) by mouth Once per day. 90 tablet 5 026 Active dapagliflozin (Farxiga) 5 MG Take 1 tablet (5 mg) by mouth Once per day. 90 tablet 5 026 Active amLODIPine (Norvasc) 5 MG tablet Take 1 tablet (5 mg) by mouth Once per day. 90 tablet 5 026 Active acetaminophen (Tylenol Extra Strength) 500 MG tablet Take 1 tablet (500 mg) by mouth every 8 (eight) hours if needed for mild pain. 60 tablet 1 5 025 Active aspirin 81 MG chewable tablet Chew 1 tablet (81 mg) Once per day. 90 tablet 5 026 Active Active Problems Problem Noted Date Diagnosed Date Right knee pain 02/27/2025 Left ankle pain 02/27/2025 Atypical chest pain 02/27/2025 Grief reaction with prolonged bereavement 2023 GERD (gastroesophageal reflux disease) 4 Periodontal disease 10/09/2023 MALATHI (obstructive sleep apnea) [...] Encounters Date Type Department Care Team Description 02/25/2025 1:15 PM EDT Office Visit [facility] [address], [place] [phone] Claudia Astorga MD Chronic pain of right knee (Primary Dx); Type 2 diabetes mellitus with diabetic neuropathy, with long-term current use of insulin ([facility]); Atypical chest pain; Dietary counseling; Exercise counseling; Severe persistent asthma, unspecified whether complicated; Uncomplicated opioid dependence ([facility]); Hypertension, unspecified type; Venous insufficiency of both lower extremities; Class 1 obesity due to excess calories with body mass index (BMI) of 33.0 to 33.9 in adult, unspecified whether serious comorbidity present; Diabetes due to undrl condition w oth diabetic neuro comp ([facility]); Health care maintenance; Chronic pain of left ankle 02/25/2025 Telephone [facility] [address] [place] [address] Claudia Astorga MD Durable Medical Equipment 02/25/2025 Telephone [facility] [address] [place], [place] [phone] Claudia Astorga MD Durable Medical Equipment 02/25/2025 Travel 02/16/2025 1:00 PM EDT Office Visit [facility] OPTOMET[facility] [address] [place], [place] [phone] Triny Hill, OD Type 2 diabetes mellitus without ophthalmic manifestations (CMS/HCC) (Primary Dx); Combined forms of age-related cataract of both eyes; Presbyopia 02/16/2025 Travel from Last 3 Months Immunizations Immunization Administration Dates Next Due Hep A, Adult 10/11/2010 Hep B, adult 03/25/2008,05/28/2007,03/20/2007 Influenza injectable quadriv alent IIV4 with preservative 05/02/2015 Influenza injectable quadriv alent preservative free 04/02/2023 Influenza, IIV3, injectable 03/18/2014, 1,03/20/2007 Influenza, Split (incl. adriano fied surface antigen) 03/31/2013 Influenza, seasonal, injecta ble, preservative free 04/08/2024 Pfizer Covid-19 Vaccine 12+ 04/08/2024 Pneumococcal Conjugate PCV 20 04/02/2023 Pneumococcal Polysaccharide PPSV23 08/25/2013 RSV Bivalent 03/15/2025 TD (adult), 2 Lf tetanus tox oid, [...] Answer Date Recorded Patient Health Questionnaire-9 Score 20 02/25/2025 Patient Health Questionnaire-9 Score 20 02/25/2025 Last PHQ-9: Questionnaire Data Not on file 0 02/25/2025 Housing Stability Answer Date Recorded What is your housing situation today? I have claudia baldwin 02/25/[address] you li ve. Do you have problems with any of the following? None of the above 02/25/2025 Food Insecurity Answer Date Recorded Within the past 12 months, y ou worried that your food would run out before you got money to buy more: Never True 02/25/2025 Within the past 12 months,th e food you bought just didn't last and you didn't have enough money to get more: Never True 09/2024 Transportation Answer Date Recorded In the past 12 months, has l ack of transportation kept you from medical appts, meetings, work or from getting things needed for daily living? No 02/25/2025 Utilities Answer Date Recorded In the past 12 months, has t he electric, gas, oil or water company threatened to shut off services in your home? No 02/25/2025 Depression Answer Date Recorded Patient Health Questionnaire-2 Score 6 02/25/2025 Internet Access Answer Date Recorded Internet Access Q1 Yes 02/25/2025 Internet Access Q2 Not on file 02/25/2025 Sex and Gender Information Value Date Recorded Sex Assigned at Male 04/23/2022 10:19 AM EDT Legal Sex Male 10:19 AM EDT Gender Identity Male 04/23/2022 10:19 AM EDT Sexual Orientation Straight 04/23/2022 10 :19 AM EDT Last Filed Vital Signs Vital Sign Reading Time Taken Comments Blood Pressure 160/82 02/25/2025 1:22 PM EDT Pulse 100 02/25/2025 1:22 PM EDT Temperature 36.1 C (96.9 F) 02/25/2025 1:22 PM EDT Respiratory Rate 18 02/25/2025 1:22 PM EDT Oxygen Saturation 95% 02/25/2025 1:22 PM EDT Inhaled Oxygen Concentration - - Weight 91.1 kg (200 lb 12.8 oz) 02/25/2025 1:22 PM EDT Height 162.6 cm (5' 4 ) 02/25/2025 1:22 PM EDT Body Mass Index 34.47 02/25/2025 1:22 PM EDT Plan of Treatment Upcoming Encounters Date Type Department Care Team (Late st Contact Info) Description 05/10/2025 11:30 AM EST Medication Management [facility] [address] [place] [address] Perla Rahman, PharmD [address] [place] [address] Health Maintenance Due Date Last Done Comments CT Colonography 1960 Colonoscopy 1960 FIT 1960 Sigmoidoscopy 1960 Disability Screening 1960 Diabetes: Foot Exam 1970 Dental Oral Exam 03/05/2024 09/02/2023, 03/05/2018 FOBT 05/13/2024 05/13/2023 Dental X-Ray: Bitewings 09/02/2024 09/02/19 24, 03/05/2018, 01/21/2018 Influenza Vaccine (#1) 2025 , 04/02/2023, 05/02/2015, Additional history exists Diabetes: Hemoglobin A1C 05/27/2025 025, 12/24/2024, 04/01/2024, Additional history exists Dental Prophylaxis 06/02/2025 11/30/2024 Depression Monitoring 08/25/2025 02/25/2025, 025 Diabetes: Urine Protein Screening 12/24/2025 12/24/2024, 04/10/2023 Lipid Panel 12/24/2025 12/24/2024, 1002/2024, 04/10/2023 Tobacco Screening 02/16/2026 02/16/2025 Alcohol/Substance Use Screening 02/25/2026 02/25/2025 SDOH Screening 02/25/2026 02/25/2025 Colorectal Cancer Screening 05/13/2026 FIT DNA/Cologuard 05/13/2026 05/13/2023 Dental X-Ray: Full Mouth 09/02/2026 09/02/2023, 02/22 Eye Exam 02/16/2027 02/16/2025, 01/23, 02/16/2025, Additional history exists DTaP/Tdap/Td Vaccines (3 - Td or Tdap) [...] 04/30/2023 COVID-19 Vaccine Completed 04/08/2024, 11/2020, 08/30/2020 RSV Patients and Patients Aged 60 years or older Completed 03/15/2025 HIB Vaccines Aged Out No longer eligi [...] Procedure Name Priority Date/Time Associated Diagnosis Comments ECG 12-LEAD Routine 02/25/2025 3:53 PM EDT Atypical chest pain POCT GLYCATED HEMOGLOBIN, TOTAL Routine 02/25/2025 1:44 PM EDT Type 2 diabetes mellitus with diabetic neuropathy, with long-term current use of insulin ([facility]) ALBUMIN, RANDOM URINE W/CREATININE Routine 12/24/2024 10:56 AM EDT LIPID PANEL, STANDARD Routine 12/24/2024 10:56 AM EDT PROPHYLAXIS - ADULT Routine 11/30/2024 1 1:00 AM EDT Dental calculus Periodontal disease Missing teeth, acquired Gingival bleeding Excessive attrition of teeth, generalized INTRAORAL - COMPLETE SERIES OF RADIOGRAPHIC IMAGES Routine 09/02/2023 8:00 AM EDT PERIODIC ORAL EVALUATION - ESTABLISHED PATIENT Routine 09/02/2023 8:00 AM EDT LAB COLOGUARD COLON CANCER SCREEN Routine 05/13/2023 1:41 PM EST Colon cancer screening HEPATITIS C AB W/REFL TO HCV RNA, QN, PCR Routine 04/10/2023 10:54 AM EDT Annual physical exam HIV ANTIBODY/ANTIGEN (TX DP) Routine 04/10/2023 10:54 AM EDT from Last 3 Months or Most Recently Relevant to Health Maintenance Results * ECG 12 lead (02/25/2025 3:53 PM EDT) Narrative Claudia Astorga MD - 02/25/2025 3:53 PM EDT -EKG Today NSR ,HR 80,Qtc 413, no ischemic changes, TWI only in lead III us Claudia Holloway MD ECG ORDERABLES F inal Result * (ABNORMAL) POCT Hgb A1c (02/25/2025 1:44 PM EDT) Hemoglobin A1C 7.9(A) 4.0 - 5.7 % QC Media Lot # [id number] Lot# Expiration Date [id number] Blood 02/25/2025 1:44 PM EDT us Claudia Holloway MD POINT OF CARE KASEY T ENTER/EDIT ORDERABLES Final Result * Albumin, Random Urine W/Creatinine (12/24/2024 10:56 AM EDT) Creatinine, Urine 253.45 mg/dL [facility] Microalbumin Urine 10.0 mg/L [facility] Microalbum Creatinine Ratio Ur 3.9 <30 ug/mg cr [facility] Comment:Albumin/Creatinine R atio Reference Ranges: Normal: < 30 ug/mg creatinine Microalbuminuria: 30 - 300 ug/mg creatinineClinical Albuminuria: > 300 ug/mg creatinine 12/24/2024 10:5 6 AM EDT 12/24/2024 12:58 PM EDT us Claudia Holloway MD LAB URINE ORDERAB LES Final Result [facility] [address] [place] [address] [phone] * Lipid Panel, Standard (12/24/2024 10:56 AM EDT) Triglycerides 120 <150 mg/dL [facility] Comment:Desirable Triglyceri de: less than 150 mg/dLBorderline High Triglyceride 150-199 mg/dLHigh Triglyceride: 200-499 mg/dLVery High Triglyceride: greater than or equal to 5OO mg/dL Cholesterol 161 <200 mg/dL [facility] Comment:Desirable Cholestero l: less than 200 mg/dLBorderline High Cholesterol: 200-239 mg/dLHigh Cholesterol: greater than 239 mg/dL LDL Cholesterol Calculated 94 <100 mg/dL [facility] Comment:Desirable LDL: less than 100 mg/dLNear Optimal/Above Optimal LDL: 110- 129 mg/dLBorderline High LDL: 130-159 mg/dLHigh LDL: 160-189 mg/dLVery High LDL: greater than or equal to 190 mg/dL HDL Cholesterol 43 >40 mg/dL [facility] Comment:Desirable HDL: great er than 40 mg/dL Note: This HDL assay may give artificially low results in patients with liver disease. 12/24/2024 10:5 6 AM EDT 12/24/2024 1:13 PM EDT us Claudia Holloway MD LAB BLOOD ORDERAB LES Final Result [facility] [address] [place] [address] [phone] * (ABNORMAL) Cologuard?? colon cancer screening (05/13/2023 1:41 PM EST) Cologuard Result Positive( A) Negative 05/24/2023 5:43 AM EST [facility] (CLIA #:[id number]) Comment: POSITIVE TEST RESULT. A positive Cologuard result should be followed with a colonoscopy or visual examination of the colon. The normal value (reference range) for this assay is negative. TEST DESCRIPTION: Composite algorithmic analysis of stool DNA-biomarkers with hemoglobin immunoassay. Quantitative values of individual biomarkers are not [...] (Fermin Claudio al, N Engl J Med 2014;370(14):8913-4705.) Cologuard may produce a false negative or false positive result (no colorectal cancer or precancerous polyp present at colonoscopy follow up). A negative Cologuard test result does not guarantee the absence of CRC or advanced adenoma (pre-cancer). The current Cologuard screening interval is every 3 years. ([place] [employer] and U.S. Multi-Society Task Force). Cologuard performance data in a 10,000 patient pivotal study using colonoscopy as the reference method can be accessed at the following location: www.[employer]/results. Additional description of the Cologuard test process, warnings and precautions can be found at www.Sunbeamrd.com. Stool specimen (specimen) 05/13/2023 1:41 PM EST 05/15/2023 5:57 PM EST us Claudia Holloway MD LAB MOLECULAR [facility] ORDERABLES Final Result [facility] (CLIA #:[id number]) [address] [place] [address], * HIV Ab/Ag (CARISA LAM) (04/10/2023 10:54 AM EDT) HIV AB/AG Nonreactive Nonreactive [facility] Comment:HIV-1 p24 Ag and/or HIV-1/HIV-2 Ab not detected.A test result that is nonreactive does not exclude thepossibility of exposure to or infection with HIV-1 and/orHIV-2. Nonreactive results in this assay for individualswith prior exposure to HIV-1 and/or HIV-2 may be due toantigen and antibody levels that are below the limit ofdetection of this assay.The One[employer] SuperTV HIV Ag/Ab Combo assay result andsupplemental assay results should be interpreted inconjunction with the patient's clinical presentation,history and other laboratory results. If the results areinconsistent with clinical evidence, additional testing issuggested to confirm the result. 04/10/2023 10:5 4 AM EDT 04/10/2023 1:32 PM EDT us Claudia Holloway MD LAB BLOOD ORDERAB LES Final Result Performing Organization Address [facility]/ZIP Co de Phone Number [facility] [address] [place] [phone] * Hepatitis C Antibody with Reflex to HCV, RNA, Quantitative, Real-Time PCR (04/10/2023 10:54 AM EDT) Pathologist [facility] Hepatitis C Antibody Nonreactive Nonreactive [facility] Comment:Antibodies to HCV no t detected; does not exclude early acuteHCV infection. Blood Venous blood specimen / Unknown 04/10/2023 10:54 AM EDT 04/10/2023 1:32 PM EDT us Claudia Holloway MD LAB BLOOD ORDERAB LES Final Result Performing Organization Address City/[facility]/ZIP Co de Phone Number [facility] [address] [place] [address] [phone] from Last 3 Months or Most Recently Relevant to Health Maintenance Insurance [facility] < 65 [place] [id number] [facility] Care Teams Final Cigar And Box Examiner Relationship Specialty Start Date End Date Claudia Astorga MD [address] [place], [place] [phone] PCP - General Internal Medicine 02/28/23 Perla Rahman PharmD [address] [place] [address] [phone] Pharmacist Internal Medicine 10/15/24
--- OUTSIDE RECORDS SUMMARY | 2025-04-15 08:52 | XMS_ITS | Encounter Summary ---
Author Organization [employer] Address [address] [facility] [address] [place] [address] Care Team Providers Care Sailor Name Role Phone Claudia Astorga MD Primary Care Pro vider Perla Rahman PharmD Unavailable [phone] Reason for Visit * Reason Comments Med Refill Encounter Details Date Type Department Care Team ([facility] st Contact Info) Description 11/15/[address] [facility] [address] [place] [address] Claudia Astorga MD [address] [place] [address] Social History Tobacco Use Types Packs/Day Years [...] Description 05/10/2025 11:30 AM EST Medication Management [facility] [address] [place] [address] [phone] Perla Rahman PharmD [address] [place] [address] [phone] documented as of this encounter Visit Diagnoses Not on filedocumented in this encounter Care Teams Sailor Relationship Specialty Start Date End Date Claudia Astorga MD [address] [place] [address] [phone] PCP - General Internal Medicine 02/28/23 Perla Rahman PharmD [address] [place] [address] [phone] Pharmacist Internal Medicine 10/15/24 documented as of this encounter
--- OUTSIDE RECORDS SUMMARY | 2025-04-15 08:52 | XMS_ITS | Clinical Summary ---
Author Organization [address] [facility] Address [address] [place] [address] Phone Care Team Providers Care Brim Shaper Name Role Phone Rg Canseco MD Primary Care Provider [phone] Allergies No known active allergies Medications ammonium [...] Encounters Date Type Department Care Team Description 03/11/2025 2:45 PM EDT Office Visit Orthopedic Surgery [facility] [address] [phone] Josue Bello DPM Controlled type 2 diabetes with neuropathy (CMS/HCC V24, CMS/HCC V28) (Primary Dx); Lumbosacral radiculopathy; PVD (peripheral vascular disease) (CMS/HCC V24); Peroneal tendon tear, left, sequela; Chronic pain of left ankle from Last 3 Months Social History Tobacco [...] 09/22/2024 1:23 PM EDT Plan of Treatment Upcoming Encounters Date Type Department Care Team ([facility] st Contact Info) Description 06/10/2025 1:15 PM EST Office Visit Orthopedic Surgery - [place] [id number] [phone] Josue Bello, KRISTINE [address] [address] Health Maintenance Due Date Last Done Comments Diabetes: Annual Foot Exam 1970 Diabetes: Annual Retina Eye Exam 1970 RSV Immunization Adult Patients (1 - Risk 50-74 years 1-dose series) 2010 Hepatitis A Vaccines (2 of 2 - Risk 2-dose series) 04/12/2011 10/11/2010 Medicare Annual Wellness Visit 05/26/2022 Social Influencers of Health Screening 05/26/2022 Diabetes: Annual Urine Albumin-Creatinine Ratio (uACR) 05/19/2024 Depression Screening 06/24/2024 Influenza Vaccine (#1) 2025 , 04/02/2023, 05/02/2015, Additional history exists Diabetes: Blood Sugar Control Test (HGBA1C) 08/25/2025 02/25/2025, 12/24/2024, 04/01/2024, Additional history exists Diabetes: Annual GFR (Glomerular Filtration Rate) 12/24/2025 12/24/2024, 12/22/2024, 04/01/2024, Additional history exists Hypertension/CHF/CAD Annual BMP Blood Test 12/24/2025 12/24/2024, 12/22/2024, 04/01/2024, Additional history exists Colorectal Cancer Screening: FIT-DNA (Cologuard) 05/13/2026 05/13/2023, 05/13/2023 Cholesterol Screening (Lipid Panel) 12/24/2029 12/24/2024, 04/01/2024, 04/10/2023 DTaP,Tdap,and Td Vaccines (4 - Td or Tdap) 04/30/2033 04/30/2023, 03/31/2013, 11/11/2008 Hepatitis B Vaccines Completed 03/25/2008, 05/28/2007, 03/20/2007 Pneumococcal Vaccine: 50+ Years Completed 04/02/2023, 08/25/2013 HIV Screening Completed 04/10/2023 Hepatitis C Screening Completed 04/10/2023, 023 Zoster Vaccines Completed 07/02/2023, 04/30/2023 COVID-19 Vaccine Completed 04/08/2024, 11/2020, 08/30/2020 HIB Vaccines Aged Out No longer eligi [...] Procedure Name Priority Date/Time Associated Diagnosis Comments WA ARTHROCENTESIS/ASPIRA TION/INJECTION INTERMEDIATE JOINT/BURSA WO U/S GUID Routine 03/11/2025 2:45 PM EDT Chronic pain of left ankle HM FIT-DNA Routine 05/13/2023 HEPATITIS C SCREENING Routine 04/10/2023 HIV SCREENING Routine 04/10/2023 ANNUAL BMP BLOOD TEST Routine 04/10/2023 HEMOGLOBIN A1C Routine 04/10/2023 LIPID PANEL Routine 04/10/2023 from Last 3 Months or Most Recently Relevant to Health Maintenance Results * WA ARTHROCENTESIS/ASPIRATION/INJECTION INTERMEDIATE JOINT/BURSA WO U/S GUID (03/11/2025 2:45 PM EDT) Narrative Josue Bello DPM - 03/11/2025 2:45 PM EDT Josue Bello DPM 03/11/2025 5:10 PM M Inj/Asp: L ankle Indications: pain Details: 25 G needle Medications: 0.5 mL lidocaine 1 %; 40 mg triamcinolone acetonide 40 mg/mL Informed Consent: Laterality: Left Josue Bello DPM IN CLINIC/BEDSIDE ORDERABLE S Final Result * FIT-DNA (Cologuard) (05/13/2023) [facility] Colorectal Cancer Screening: FIT-DNA (Cologuard) Abstracted, No Interpretation Historical Provider HEALTH MAINTENANCE Final Result * Annual BMP Blood Test (04/10/2023) [facility] Annual BMP Blood Test Abstracted Historical Provider HEALTH MAINTENANCE Final Result * HIV Screening (04/10/2023) [facility] HIV Screening Abstracted Historical Provider HEALTH MAINTENANCE Final Result * Hepatitis C Screening (04/10/2023) [facility] Hepatitis C Screening Abstracted [facility] Provider HEALTH MAINTENANCE Final Result * Hemoglobin A1c (04/10/2023) Hemoglobin A1C 0.0 % Blood Venous blood specimen / Unknown Historical Provider LAB BLOOD ORDERABLES [place] Result * Lipid panel (04/10/2023) LDL/HDL Ratio 0 Triglycerides 0 mg/dL Cholesterol 0 mg/dL HDL 0 mg/dL LDL Cholesterol 0 mg/dL Blood Venous blood specimen / Unknown Historical Provider LAB BLOOD ORDERABLES [place] Result from Last 3 Months or Most Recently Relevant to Health Maintenance Insurance [facility] MEDIC[facility] Member Subscriber Plan / Payer (Ef fective 2016-Present) Name:SHUN ENRIQUEZ Relation to Subscriber:Self Name:Shun Enriquez Payer ID:[id number] Group ID:[id number] Type:Not on file Address: [place] [address] [address] [address] Care Teams Brim Shaper Relationship Specialty Start Date End Date Rg Canseco MD [address] [place] [address] CARISA Bradford [phone] PCP - General 12/24/23
--- OUTSIDE RECORDS SUMMARY | 2025-04-15 08:52 | XMS_ITS | Encounter Summary ---
Author Organization [facility] Address [address] [facility] [address] [place] [address] Care Team Providers Care Ordnance Officer Name Role Phone Claudia Astorga MD Primary Care Pro vider Perla Rahman PharmD Unavailable [phone] Reason for Visit * Reason Comments Med Refill Encounter Details Date Type Department Care Team ([facility] st Contact Info) Description 06/16/2024 Refill [facility] [address] [place] [address] Claudia Astorga MD [address] [place] [address] Social History Tobacco Use Types Packs/Day Years [...] Description 05/10/2025 11:30 AM EST Medication Management [facility] [address] [place] [address] Perla Rahman PharmD [address] [place] [address] documented as of this encounter Visit Diagnoses Not on filedocumented in this encounter Additional Health Concerns Assessment Noted Time PHQ-9 Depression Total Score: 19 024 10:08 AM EDT documented as of this encounter Care Teams Ordnance Officer Relationship Specialty Start Date End Date Claudia Astorga MD [address] [place] [phone] PCP - General Internal Medicine 02/28/23 Perla Rahman PharmD [address] [place] [address] [phone] Pharmacist Internal Medicine 10/15/24 documented as of this encounter
--- OUTSIDE RECORDS SUMMARY | 2025-04-15 08:52 | XMS_ITS | Encounter Summary ---
Author Organization [employer] Address [address] [facility] [address] [place] [address] Care Team Providers Care Inside Horticultural Specialty Grower Name Role Phone Claudia Astorga MD Primary Care Pro vider Perla Rahman PharmD Unavailable [phone] Reason for Visit * Reason Comments Med Refill Encounter Details Date Type Department Care Team ([facility] st Contact Info) Description 10/09/2023 Refill [facility] [address] [place], [place] [phone] Barrington Dunbar AGNP Social History Tobacco Use [...] Description 05/10/2025 11:30 AM EST Medication Management [facility] [address] [place] [phone] Perla Rahman PharmD [address] [place] [address] documented as of this encounter Visit Diagnoses Not on filedocumented in this encounter Care Teams Inside Horticultural Specialty Grower Relationship Specialty Start Date End Date Claudia Astorga MD [address] [place] [id number] PCP - General Internal Medicine 02/28/23 Perla Rahman PharmD [address] [place] [phone] Pharmacist Internal Medicine 10/15/24 documented as of this encounter
== END 2025-04-13 08:30 | disposition home or self-care (01) ==
LOC: HO.HOSX 08:29
PROVIDERS: Visit Provider Orthopaedic Surgery
DX: Z13.89 Encounter for screening for other disorder (principal)